=== PATIENT | male | born 1930 | race Caucasian/White ===

== ENCOUNTER 2018-01-08 18:03 | Inpatient (IN) | payer OTHER, MEDICARE ==
--- NOTE | 2018-01-08 18:33 | ED GI/GU/ABDOMINAL COMPLAINT ---
History of Present Illness General Chief Complaint: Nausea, Vomiting, Diarrhea Stated Complaint: BIBA NO COMPLIANT, VISTING NURSE STATES +V Source: patient, old records, EMS Exam Limitations: dementia Vital Signs & Intake/Output Vital Signs & Intake/Output Vital Signs Date Time Temp Pulse Resp B/P B/P Pulse O2 O2 Flow FiO2 Mean Ox Delivery Rate 01/08 2340 100.0 97 20 115/60 91 Room Air 01/08 2223 96.9 82 18 112/56 95 Room Air 01/08 2029 98.0 86 18 127/60 95 Room Air 01/08 1838 Room Air Room Air 01/08 1809 98.3 102 18 126/58 93 Room Air ED Intake and Output 01/09 0000 01/08 1200 Intake Total 0 Output Total Balance 0 Intake, Oral 0 Allergies Coded Allergies: Sulfa (Sulfonamide Antibiotics) (URTICARIA 01/08/18) gabapentin (ABD PAIN 01/08/18) lorazepam (From ATIVAN) (AGITATION 01/08/18) ropinirole (From REQUIP) (EMESIS 01/08/18) tizanidine (DIZZINESS/EMESIS 01/08/18) Triage Nurses Notes Reviewed? yes Onset: Abrupt Duration: day(s): (2), better Timing: recent history Quality/Severity: moderate Severity Numbers: 5 Location: no pain Radiation: no radiation No Modifying Factors: none Associated Symptoms: denies HPI: 87-year-old male history of coronary artery disease dementia presents brought in by ambulance after he had nausea vomiting yesterday associated with a large bloody bowel movement today. On arrival patient is demented offers no complaints he denies bowel pain nausea. No chest pain shortness of breath area of old records reviewed there is no documented history of the patient taking any blood thinners. No modifying factors or associated symptoms According to the w-10 the patient appeared lethargic on arrival he is awake without any complaints (Dillon Escobedo) Past History Travel History Traveled to [place] past 21 day No Medical History Any Pertinent Medical History? see below for history Neurological: CVA, dementia Cardiovascular: hypertension, CAD Musculoskeletal: osteoarthritis, SPINAL STENOSIS Cancer(s): lung cancer Surgical History Surgical History: non-contributory Psychosocial History Tobacco Use: Never used Family History Hx Contributory? No (Dillon Escobedo) Review of Systems Review of Systems Constitutional: Reports: see HPI. Comments ros: unable to obtain secondary to dementia (Dillon Escobedo) Physical Exam Physical Exam General Appearance: well developed/nourished, awake Gastrointestinal: soft, non-tender Comments: Well-developed well-nourished person in no acute distress HEENT: Normal EENT exam; PERRL, EOMI, HEAD is atraumatic. moist mucous membranes. Neck: Supple, normal range of motion Back: Nontender, Full range of motion Cardiovascular: Regular rate and rhythms no murmur Respiratory: Chest nontender.There were no bony deformities, no asymmetry. No respiratory distress. Patient speaking in full complete sentences. Breath sounds clear to auscultation bilaterally: NO W/R/R Abdomen: Soft, nontender nondistended, no appreciable organomegaly. Normal bowel sounds. No rebound/guarding, Rectal: Dark brown stool heme positive Extremity: No edema, full range of motion of extremities Neuro: Alert oriented x3, motor sensory normal, There were no obvious focal neurologic abnormalities. Skin: No appreciable rash on exposed skin, skin is warm and dry. Psych: Mood and affect is normal, memory and judgment is normal. Core Measures ACS in differential dx? No Sepsis Present: No Sepsis Focused Exam Completed? No (Dillon Escobedo) Progress Differential Diagnosis: appendicitis, biliary colic, bowel obstruction, colon cancer, cholecystitis, diverticulitis, gastritis, hepatitis, hernia, ischemic bowel, inflamm bowel dis, perforated viscous, SBO Plan of Care: Orders Procedure Date/time Status Nothing by Mouth 01/09 B Active CBC WITHOUT DIFFERENTIAL 01/09 0600 Active BASIC ELECTROLYTES PLUS BUN&CR 01/09 0400 Active CULTURE,URINE 01/09 0234 Active LOWER RESPIRATORY CULTURE 01/09 0234 Active BLOOD CULTURE 01/09 0234 Active URINALYSIS 01/09 0234 Active Weight 01/09 0038 Complete Vital Signs 01/09 38 Active Teach/Educate 01/09 38 Active Pain Treatment and Response 01/09 38 Active Nutritional Intake, Monitor 01/09 38 Active Isolation 01/09 38 Active Intake & Output 01/09 38 Active Patient Care Conference 01/09 38 Active Activity/Ambulation 01/09 38 Active Restraint- Medical 01/09 UNK Active Code Status 01/09 2216 Active LACTIC ACID 01/09 2132 Complete Pathway - chart 01/09 2124 Active Patient Data 01/08 2114 Active Saline Lock 01/09 2044 Active Misc Message 01/09 2044 Active ED Holding Orders 01/09 2044 Active Admit to inpatient 01/09 2044 Active Vital Signs 01/09 2044 Active Code Status 01/09 2044 Complete Intake & Output 01/08 1908 Active MISTAKE 01/08 184 Complete Telemetry/Upper Shaper 01/08 183 Complete EKG 01/08 183 Active PROTHROMBIN TIME 01/08 183 Complete TYPE & SCREEN (NOT X-MATCH) 01/08 183 Complete TROPONIN LEVEL 01/08 183 Complete LIPASE 01/08 183 Complete LACTIC ACID 01/08 183 Complete COMPREHENSIVE METABOLIC PANEL 01/08 183 Complete CBC WITHOUT DIFFERENTIAL 01/08 183 Complete VTE Mechanical Prophylaxis 01/08 UNK Active Vital Signs 01/08 UNK Complete Current Medications Sig/Akila Start time Last Medication Dose Stop Time Status Admin Melatonin 5 MG AT BEDTIME 01/09 2200 AC 01/08 (Melatonin) 2341 Pantoprazole Sodium 40 MG BID 01/09 1000 AC (Protonix) Dextrose/Sodium 1,000 ML Q13H 01/08 2230 AC 01/08 Chloride 2343 (D5-Normal Saline) Laboratory Tests 01/08/18 2210: Lactic Acid 1.9 01/08/181844: Anion Gap 11, Estimated GFR 57 L, BUN/Creatinine Ratio 40.8 H, Glucose 128 H, Lactic Acid 2.4 H, Calcium 8.6, Total Bilirubin 0.6, AST 14 L, ALT 23, Alkaline Phosphatase 67, Troponin I < 0.01, Total Protein 5.7 L, Albumin 3.1 L , Globulin 2.6, Albumin/Globulin Ratio 1.2, Lipase 131, PT 12.7 H, INR 1.16, CBC w Diff NO MAN DIFF REQ, RBC 2.61 L, MCV 96.8 H, MCH 31.5 H, MCHC 32.6 L, RDW 16.3 H, MPV 6.6 L, Gran % 72.0, Lymphocytes % 21.0, Monocytes % 6.1, Eosinophils % 0.7, Basophils % 0.2, Absolute Granulocytes 9.1 H, Absolute Lymphocytes 2.6, Absolute Monocytes 0.8 H, Absolute Eosinophils 0.1, Absolute Basophils 0 Microbiology 01/09 234 URINE ROUT: Urine Culture - ORD 01/09 234 LOWER RESP: Respiratory Culture - ORD 01/09 234 LOWER RESP: Gram Stain - ORD 01/09 234 BLOOD: Blood Culture - ORD 01/09 234 BLOOD: Blood Culture - ORD Labs ordered old records reviewed IV fluids ordered case discussed with Dr. Bueno agrees with plan call placed to gi cased/w dr sy willadmit-patient had no episode of vomiting here in the department. Diagnostic Imaging: Viewed by Me: CT Scan. Discussed w/RAD: CT Scan. Radiology Impression: PATIENT: ABDIAS GUAJARDO PRESENT AGE: 87 PATIENT ACCOUNT NO: [id number] : [birth year] LOCATION: [facility] ORDERING PHYSICIAN: Dillon MCKEON SERVICE DATE: 01/08/18 EXAM TYPE: CAT - CT ABD & PELVIS W/O IV CONTRAS EXAMINATION: CT ABD PELVIS W/O IV CONTRAS CLINICAL INFORMATION: Presumptive Dx: RO COLITIS, OBSTRUCTION
Signs Symptoms: NVD
COMPARISON: None TECHNIQUE: Multidetector volumetric imaging was performed from the superior aspect of the liver through the pubic symphysis Study done without contrast. DLP: 645 mGy-cm FINDINGS: LOWER THORAX: Consolidation/ atelectasis LEFT lower lobe with air bronchogram, an area involved is about 8 x 6 cm. No pleural effusion. Right lung bases are clear. HEPATOBILIARY: No focal hepatic lesions. No biliary ductal dilatation. GALLBLADDER: Gallbladder unremarkable. SPLEEN: Spleen is normal in size. PANCREAS: No focal mass or ductal dilatation. STOMACH AND GASTROINTESTINAL TRACT: Stomach is grossly unremarkable. There is no bowel distention or thickening. No CT evidence of appendicitis. ADRENALS: No adrenal nodules. KIDNEYS/URETERS: There are bilateral multiple renal cysts the largest protruding from the upper pole RIGHT kidney measure up to 5.6 x 5 cm, 4.2 x 3.9 cm, 3 x 2.5 cm, lower pole 3.2 x 3 cm and 1.9 x 1.5 cm. Several cysts on the LEFT side the largest is 6.7 x 6.3 cm, 4.8 x 4.3 cm, 1.9 x 1.9 cm and 4 x 3.4 cm. URINARY BLADDER: Unopacified, distended. PELVIC VISCERA: Rectum and perirectal fat are clear. There are anastomosis line. PERITONEUM: No free air or fluid. LYMPH NODES: No lymphadenopathy. VASCULAR: There are heavy vascular calcifications. No aneurysm found. BONES, ABDOMINAL WALL AND SOFT TISSUES: Age-related degenerative changes of the spine and hip joints symphysis pubis. Levoscoliosis. Left inguinal hernia containing fat only. IMPRESSION: 1. No CT evidence of acute intra-abdominal process. 2. Bilateral renal cysts, heavy vascular calcification of the aorta without aneurysm, advanced degenerative disease of the spine, anastomosis sigmoid-rectal junction, nonobstructive bowel gas pattern. 3. Left inguinal hernia containing fat only. 4. Large atelectasis consolidation LEFT lower lobe. DICTATED BY: Estela Altamirano MD DATE/TIME DICTATED:01/08/181953 TROUBLE LOCATER:TAHMINA DATE/TIME TRANSCRIBED:01/08/181953 CONFIDENTIAL, DO NOT COPY WITHOUT APPROPRIATE AUTHORIZATION. <Electronically signed in Other Vendor System> SIGNED BY: Estela Altamirano MD 01/08/182010 Initial ED EKG: normal intervals, normal p-waves, normal QRS complex, normal sinus rhythm (Dillon Escobedo) Departure Departure Time of Disposition: 2023 Disposition: STILL A PATIENT Condition: Stable Clinical Impression Primary Impression: GI bleed Secondary Impressions: Lactic acidosis Referrals: Vivian Gonzalez MD (PCP/Family) Departure Forms: Customer Survey General Discharge Information Admission Note Spoke With: Saran Sy MD Documentation of Exam: Documentation of any treatments & extenuating circumstances including Concerns Regarding Discharge (functional status, medication knowledge or non-compliance, living conditions, etc.) that warrant an admission rather than observation: GI CONSULT, TREND LABS-H/HPREMATURE DISCHARGE WOULD BE MEDICALLY HARMFUL, SERIAL ABD EXAMS (Dillon Escobedo) PA/GRINDER SET UP OPERATOR JIG Co-Sign Statement Statement: ED Attending supervision documentation- [x] I saw and evaluated the patient. I have also reviewed all the pertinent lab results and diagnostic results. I agree with the findings and the plan of care as documented in the PA's/GRINDER SET UP OPERATOR JIG's documentation. 01/08/18, 20:44... pt with slow gi bleed... stable vitals... safe for gen med. [] I have reviewed the ED Record and agree with the PA's/GRINDER SET UP OPERATOR JIG's documentation. [] Additions or exceptions (if any) to the PAs/GRINDER SET UP OPERATOR JIG's note and plan are summarized below: [] (Myles ESCAMILLA,Sagar Arnold)
[2018-01-08 19:04] LABS: ABSOLUTE BASOPHIL COUNT 0 /CUMM (0.0-0.2); ABSOLUTE EOSINOPHIL COUNT 0.1 /CUMM (0.0-0.7); ABSOLUTE GRANULOCYTE CT 9.1 /CUMM (1.4-6.5); ABSOLUTE LYMPH COUNT 2.6 /CUMM (1.2-3.4); ABSOLUTE MONOCYTE COUNT 0.8 /CUMM (0.10-0.60); BASOPHIL % 0.2 % (0.0-2.0); EOSINOPHIL % 0.7 % (0-5); HEMATOCRIT 25.3 % (42-52); MEAN CORPUSCULAR HGB 31.5 PG (27.0-31.0); MEAN CORPUSCULAR HGB CONC 32.6 G/DL (33.0-37.0); MEAN CORPUSCULAR VOLUME 96.8 FL (80.0-94.0); MEAN PLATELET VOLUME 6.6 FL (7.4-10.4); PLATELET COUNT 308 /CUMM (130-400); RBC DISTRIBUTION WIDTH 16.3 % (11.5-14.5); RED BLOOD CELL CT 2.61 /CUMM (4.70-6.10); WHITE BLOOD CELL COUNT 12.6 /CUMM (4.8-10.8)
[2018-01-08 19:12] LABS: PT 12.7 SEC (9.4-12.5)
--- NOTE | 2018-01-08 20:11 | CT SCAN REPORT ---
EXAMINATION: CT ABD PELVIS W/O IV CONTRAS CLINICAL INFORMATION: Presumptive Dx: RO COLITIS, OBSTRUCTION
Signs Symptoms: NVD
COMPARISON: None TECHNIQUE: Multidetector volumetric imaging was performed from the superior aspect of the liver through the pubic symphysis Study done without contrast. DLP: 645 mGy-cm FINDINGS: LOWER THORAX: Consolidation/atelectasis LEFT lower lobe with air bronchogram, an area involved is about 8 x 6 cm. No pleural effusion. Right lung bases are clear. HEPATOBILIARY: No focal hepatic lesions. No biliary ductal dilatation. GALLBLADDER: Gallbladder unremarkable. SPLEEN: Spleen is normal in size. PANCREAS: No focal mass or ductal dilatation. STOMACH AND GASTROINTESTINAL TRACT: Stomach is grossly unremarkable. There is no bowel distention or thickening. No CT evidence of appendicitis. ADRENALS: No adrenal nodules. KIDNEYS/URETERS: There are bilateral multiple renal cysts the largest protruding from the upper pole RIGHT kidney measure up to 5.6 x 5 cm, 4.2 x 3.9 cm, 3 x 2.5 cm, lower pole 3.2 x 3 cm and 1.9 x 1.5 cm. Several cysts on the LEFT side the largest is 6.7 x 6.3 cm, 4.8 x 4.3 cm, 1.9 x 1.9 cm and 4 x 3.4 cm. URINARY BLADDER: Unopacified, distended. PELVIC VISCERA: Rectum and perirectal fat are clear. There are anastomosis line. PERITONEUM: No free air or fluid. LYMPH NODES: No lymphadenopathy. VASCULAR: There are heavy vascular calcifications. No aneurysm found. BONES, ABDOMINAL WALL AND SOFT TISSUES: Age-related degenerative changes of the spine and hip joints symphysis pubis. Levoscoliosis. Left inguinal hernia containing fat only. IMPRESSION: 1. No CT evidence of acute intra-abdominal process. 2. Bilateral renal cysts, heavy vascular calcification of the aorta without aneurysm, advanced degenerative disease of the spine, anastomosis sigmoid-rectal junction, nonobstructive bowel gas pattern. 3. Left inguinal hernia containing fat only. 4. Large atelectasis consolidation LEFT lower lobe.
--- NOTE | 2018-01-08 21:17 | History & Physical ---
Scooby Mittal MD 01/08/182115: General Information and HPI MD Statement: I have seen and personally examined ABDIAS GOLDEN and documented this H&P. The patient is a 87 year old M who presented with a patient stated chief complaint of [melena/guaiac positive stool]. Source of Information: patient, family, old records Exam Limitations: dementia History of Present Illness: Patient is an 87-year-old male with a PMH significant for CAD, vascular dementia , CKD, HTN, colon cancer status post resection approximately 30 years ago, lung cancer not currently being treated, who presents to the [facility] ED from [facility] for nausea, vomiting, melanotic stool. Due to dementia patient was unable to provide history, information was obtained from [facility] nursing staff and patient's who is SUZETTE. Per the nursing staff at [facility] the patient was in his usual state of health the morning of presentation, in the afternoon he began to complain of abdominal discomfort, nausea and vomited once. The nurse was not aware of the contents of the emesis. Patient also had 2-3 episodes of soft stool and 1 episode of large volume dark stool with dark red blood, guaiac positive. Patient was brought into the ED by EMS. While in the ED patient had another episode of dark brown stool which was also guaiac- positive. Patient is a poor historian secondary to dementia and offers no complaints at the time examination and review of systems is negative for abdominal pain, nausea, chest pain, shortness of breath, fever, chills. Past History Travel History Traveled to [place] past 21 day No Medical History Neurological: CVA, dementia Cardiovascular: CAD, hypertension Gastrointestinal: internal and external hemorrhoids Musculoskeletal: osteoarthritis, SPINAL STENOSIS Cancer(s): colon/rectal cancer, lung cancer Surgical History Surgical History: colonic resection Past Family/Social History Family History Relations & Conditions if any Relation not specified for: *No pertinent family history Psychosocial History Where do you live? [facility] Primary Language: Macanese Smoking Status: Former Smoker ETOH Use: denies use Illicit Drug Use: denies illicit drug use Living Will? yes Review of Systems Review of Systems Constitutional: Denies: chills, fever, malaise. EENTM: Reports: no symptoms. Cardiovascular: Denies: chest pain, palpitations. Respiratory: Denies: cough, short of breath. GI: Denies: abdominal pain, nausea. Genitourinary: Reports: no symptoms. Musculoskeletal: Reports: no symptoms. Skin: Reports: no symptoms. Exam & Diagnostic Data Last 24 Hrs of Vital Signs/I&O Vital Signs Date Time Temp Pulse Resp B/P B/P Pulse O2 O2 Flow FiO2 Mean Ox Delivery Rate 01/080 100.0 97 20 115/60 91 Room Air 01/08 2223 96.9 82 18 112/56 95 Room Air 01/08 2029 98.0 86 18 127/60 95 Room Air 01/08 1838 Room Air Room Air 01/08 1809 98.3 102 18 126/58 93 Room Air Intake & Output 01/09 0800 01/09 0000 01/08 1600 Intake Total 0 Output Total Balance 0 Intake, Oral 0 Physical Exam General Appearance Alert, Cooperative, No Acute Distress Skin Temp/Moisture Exam: Warm/Dry Sepsis Skin Exam (color): Normal for Ethnicity HEENT Atraumatic, PERRLA, EOMI, Mucous Membr. moist/pink Cardiovascular Regular Rate, Normal S1, Normal S2 Lungs diffuse rhonchi Abdomen Normal Bowel Sounds, Soft, No Tenderness Neurological Normal Speech, Strength at 5/5 X4 Ext, Sensation Intact, Cranial Nerves 3-12 NL Extremities No Clubbing, No Cyanosis, No Edema Last 24 Hrs of Labs/Yang: Laboratory Tests 01/08/18 2210: Lactic Acid 1.9 01/08/18 1845: Anion Gap 11, Estimated GFR 57 L, BUN/Creatinine Ratio 40.8 H, Glucose 128 H, Lactic Acid 2.4 H, Calcium 8.6, Total Bilirubin 0.6, AST 14 L, ALT 23, Alkaline Phosphatase 67, Troponin I < 0.01, Total Protein 5.7 L, Albumin 3.1 L , Globulin 2.6, Albumin/Globulin Ratio 1.2, Lipase 131, PT 12.7 H, INR 1.16, CBC w Diff NO MAN DIFF REQ, RBC 2.61 L, MCV 96.8 H, MCH 31.5 H, MCHC 32.6 L, RDW 16.3 H, MPV 6.6 L, Gran % 72.0, Lymphocytes % 21.0, Monocytes % 6.1, Eosinophils % 0.7, Basophils % 0.2, Absolute Granulocytes 9.1 H, Absolute Lymphocytes 2.6, Absolute Monocytes 0.8 H, Absolute Eosinophils 0.1, Absolute Basophils 0 Diagnostic Data Other Results CT abd/pelvis LOWER THORAX: Consolidation/atelectasis LEFT lower lobe with air bronchogram, an area involved is about 8 x 6 cm. No pleural effusion. Right lung bases are clear. HEPATOBILIARY: No focal hepatic lesions. No biliary ductal dilatation. GALLBLADDER: Gallbladder unremarkable. SPLEEN: Spleen is normal in size. PANCREAS: No focal mass or ductal dilatation. STOMACH AND GASTROINTESTINAL TRACT: Stomach is grossly unremarkable. There is no bowel distention or thickening. No CT evidence of appendicitis. ADRENALS: No adrenal nodules. KIDNEYS/URETERS: There are bilateral multiple renal cysts the largest protruding from the upper pole RIGHT kidney measure up to 5.6 x 5 cm, 4.2 x 3.9 cm, 3 x 2.5 cm, lower pole 3.2 x 3 cm and 1.9 x 1.5 cm. Several cysts on the LEFT side the largest is 6.7 x 6.3 cm, 4.8 x 4.3 cm, 1.9 x 1.9 cm and 4 x 3.4 cm. URINARY BLADDER: Unopacified, distended. PELVIC VISCERA: Rectum and perirectal fat are clear. There are anastomosis line. PERITONEUM: No free air or fluid. LYMPH NODES: No lymphadenopathy. VASCULAR: There are heavy vascular calcifications. No aneurysm found. BONES, ABDOMINAL WALL AND SOFT TISSUES: Age-related degenerative changes of the spine and hip joints symphysis pubis. Levoscoliosis. Left inguinal hernia containing fat only. IMPRESSION: 1. No CT evidence of acute intra-abdominal process. 2. Bilateral renal cysts, heavy vascular calcification of the aorta without aneurysm, advanced degenerative disease of the spine, anastomosis sigmoid-rectal junction, nonobstructive bowel gas pattern. 3. Left inguinal hernia containing fat only. 4. Large atelectasis consolidation LEFT lower lobe. Assessment/Plan Assessment: Patient is an 87-year-old male with a PMH significant for CAD, vascular dementia , CKD, HTN, colon cancer status post resection approximately 30 years ago, lung cancer not currently being treated, who presents to the [facility] ED from [facility] for nausea, vomiting, melanotic stool. He had episode of guaiac- positive stool at [facility], and in the ED.\ Vital signs on admission: T 98.3, P102, RR 18, BP 126/58, pulse ox 93% on room air Labs: WBC 12.6, H/H8.2/25.3 (down from 10.6/39.5 on 12/27), platelet 308, BUN 49, creatinine 1.2, glucose 128, lactic acid 2.4 (decreased to 1.9 after IV fluid rehydration), PT 12.7, INR 1.16 Problem list #GI bleed #Chronic medical problems including history of coronary artery disease, CK-MB, colon cancer status post resection, hemorrhoids internal and external HTN Plan -Admit to general medicine floor -CBC every 8 hours for first 24 hours, transfuse to a goal hemoglobin of 8 given history of CAD -GI consult placed with the answering service of Dr. Bryant -2 large-bore IVs at all times -IV PPI -Nothing by mouth for now - maintenance fluids D5 normal saline at 75 mL per hour - (SUZETTE Golden [phone] ) is home bound, requests to be updated on the patients conditionshe is agreeable to escalation of care as needed including transfer to ICU, central line, pressors Diet: Nothing by mouth DVT prophylaxis: Alps, no pharmacological prophylaxis at this time secondary to GI bleed CODE STATUS: DNR/DNI As Ranked By This Provider Problem List: 1. GI bleed Core Measures/Misc (06/19) Acute Coronary Syndrome ACS Diagnosis: No Congestive Heart Failure Congestive Heart Failure Diagnosis No Cerebrovascular Accident CVA/TIA Diagnosis: No VTE (View Protocol) VTE Risk Factors Age>40 No Mechanical VTE Prophylaxis d/t N/A MechProphylax Ordered No VTE Pharm Prophylaxis d/t Bleeding (Active) Sepsis (View protocol) Sepsis Present: No Kat Avery 01/08/18 2207: General Information and HPI Allergies/Medications Allergies: Coded Allergies: Sulfa (Sulfonamide Antibiotics) (URTICARIA 01/08/18) gabapentin (ABD PAIN 01/08/18) lorazepam (From ATIVAN) (AGITATION 01/08/18) ropinirole (From REQUIP) (EMESIS 01/08/18) tizanidine (DIZZINESS/EMESIS 01/08/18) Resident Review Statement Resident Statement: examined this patient, discussed with international banker, reviewed EMR data (avail) Other Findings: 87-year-old gentleman from [facility] past medical history significant for vascular dementia, lung cancer diagnosed couple of years ago (untreated), colon cancer s/p resection, coronary artery disease, hypertension, chronic kidney disease, brought in by ambulance for nausea vomiting and one episode of large bowel bloody bowel movement. Patient is unable to provide history and collateral history was obtained from staff at [facility] as well as his who is his POA. Sent to [facility] for evaluation of 1 episode of large volume dark stool with dark red blood assoicated with abdominal discomfort, nausea and one episode of vomitting. Vitals temperature 98.0, heart rate 102--> 86, blood pressure 127/60, 94% percent on room air Examination patient was only oriented to person, RS bilateral rhonchi, abdomen soft nontender bowel sounds with midline surgical scar noted in lower abdomen, no pedal edema noted. Noted to be guaiac positive in ED. Labs significant for WBC 12.6 with no bandemia, hemoglobin 8.2, hematocrit 25.3 (down from 10.6/39.5 on 12/27) , platelet 308, sodium 142, potassium 4.6, BUN 49, creatinine 1.2, chloride 103, bicarbonate 27, PT 12.7, INR 1.16, glucose 128, lactic acid 2.4, normal LFTs troponin 0.01. Denies abdominal pain, nausea, chest pain, shortness of breath, fever, chills. CT abdomen pelvis significant for consolidation side at least ceases in left lower lobe with air bronchogram, multiple bilateral renal cysts Left inguinal hernia vascular calcification of aorta Problem list: GI bleed Coronary artery disease Hypertension CKD history of lung cancer colon cancer s/p resection leukocytosis-reactive vs underly infection (?pnuemonia) Plan: Admit to general medicine floor, vitals per protocol Recheck CBC every 8 hour, serial abdominal exam GI consult in the morning, will inform GI of any hemodynamically unstable or active bleeding IV PPI he spiked a fever of 100, will panculture and keep off antibiotics for now Keep nothing by mouth D5 normal saline at 75cc DVT prophylaxis Alps secondary to GI bleeding Goals of care: DNR/DNI, spoke to his who is his POA and she is okay with ICU transfer and central line and vasopressures if needed. Saran Oneill MD 01/09/18 0108: Attending MD Review Statement Attending Statement Attending MD Statement: examined this patient, discuss w/resident/PA/COAL SHOVELER, agreed w/resident/PA/COAL SHOVELER, reviewed EMR data (avail) Attending Assessment/Plan: Mr. Golden is 87-year-old male who comes from [facility] has a past medical history of vascular dementia, hypertension, coronary artery disease, comes in with complaints of nausea vomiting and bloody bowel movement. Most of the information is obtained by the house staff speaking to the staff at the [facility]. Currently patient denies any specific symptoms of abdominal pain nausea vomiting. Patient is unsure as to why he came in to the hospital. On examination blood pressure is 127/60 heart rate was initially tachycardic however came down to 80s, afebrile, saturating well on room air. Assessment 1. GI Bleed - likely Upper with normal coagulation parameters and platelets 2. Elevated BUN:Cr ratio 3. Lactic acidosis 4. Hypertension, CKD, CAD 5. Incidental finding of large atelectasis consolidation of LEFT lower lobe Plan Admit to Gen Med Trend CBC every 6-8 hrs. Serial abdominal exams NPO, IVF, IV Protonix 40 mg BID Maintain 2 large bore IV cannulas - Type and screen with cross match sent Gastroenterology consulted Monitor for any respiratory symptoms Patient is DNR and DNI ALPS for DVT prophylaxis
[2018-01-08 23:40] VITALS: BP 115/60
[2018-01-09 05:54] VITALS: BP 100/50
[2018-01-09 06:57] VITALS: BP 110/54
--- NOTE | 2018-01-09 07:50 | PN- Housestaff ---
See Addendum Subjective Follow-up For: upper vs Lower Gastrointestinal bleeding ? Non-occlusive mesenteric ischemia H/O colon cancer status post resection History of CAD, vascular dementia, hypertension History of colon cancer status post resection Complaints: no complaints Subjective: Patient was comfortably sitting in the bed. He did not have any acute episodes off vomiting overnight. She did not complain of any abdominal pain. No episodes of bright red blood per rectum overnight. No acute chest pain or shortness of breath. Review of Systems Constitutional: Denies: chills, fever. EENTM: Denies: visual changes. Cardiovascular: Denies: chest pain, palpitations. Respiratory: Denies: cough, short of breath. Gastrointestinal: Denies: abdominal pain, nausea, vomiting. Genitourinary: Denies: dysuria. Objective Last 24 Hrs of Vital Signs/I&O Vital Signs Date Time Temp Pulse Resp B/P B/P Pulse O2 O2 Flow FiO2 Mean Ox Delivery Rate 01/09 0657 98.6 86 20 110/54 94 Room Air 01/09 0554 98.0 88 20 100/50 91 Room Air 01/08 2340 100.0 97 20 115/60 91 Room Air 01/08 2223 96.9 82 18 112/56 95 Room Air 01/08 2029 98.0 86 18 127/60 95 Room Air 01/08 1838 Room Air Room Air 01/08 1809 98.3 102 18 126/58 93 Room Air Intake & Output 01/09 1600 01/09 0800 01/09 0000 Intake Total 720 0 Output Total 650 Balance 70 0 Intake, IV 600 Intake, Oral 120 0 Output, Urine 650 Physical Exam General Appearance: Alert, Oriented X3, Cooperative, No Acute Distress Skin Temp/Moisture Exam: Warm/Dry HEENT: PERRLA Neck: No JVD Cardiovascular: Regular Rate, Normal S1, Normal S2 Lungs: Clear to Auscultation Abdomen: Normal Bowel Sounds, Soft, No Tenderness Neurological: Normal Speech, Normal Tone, Sensation Intact Extremities: No Edema Vascular: Normal Pulses Current Medications: Current Medications Sig/Akila Start time Last Medication Dose Route Stop Time Status Admin Dextrose/Sodium 1,000 ML Q13H 01/08 2230 AC 01/08 Chloride IV 2343 Melatonin 5 MG AT BEDTIME 01/09 2200 AC 01/08 PO 2341 Melatonin 5 MG .STK-MED ONE 01/08 2333 DC PO 01/08 2334 Pantoprazole Sodium 40 MG BID 01/09 1000 AC IV Pantoprazole Sodium 0 .STK-MED ONE 01/08 2152 DC IV Pantoprazole Sodium 40 MG DAILY 01/09 2124 DC 01/08 IV 2153 Ramelteon 8 MG ONCE ONE 01/09 0245 DC 01/09 PO 01/09 0246 0300 Sodium Chloride 1,000 ML BOLUS ONE 01/08 1845 DC 01/08 IV 01/08 1944 1920 Last 24 Hrs of Lab/Yang Results Last 24 Hrs of Labs/Mics: Laboratory Tests 01/09/18 0620: CBC w Diff Pending, WBC Pending, RBC Pending, Hgb Pending, Hct Pending, MCV Pending, MCH Pending, MCHC Pending, RDW Pending, Plt Count Pending, MPV Pending 01/09/18 0408: Anion Gap 8, Estimated GFR 52 L, BUN/Creatinine Ratio 33.8 H 01/09/18 0245: Urinalysis LIGHT H, Urine Color YEL, Urine Clarity CLDY H, Urine pH 6.0, Ur Specific [place] 1.020, Urine Protein NEG, Urine Ketones NEG, Urine Nitrite NEG, Urine Bilirubin NEG, Urine Urobilinogen 0.2, Ur Leukocyte Esterase MOD H, Ur Microscopic SEDIMENT EXAMINED, Urine RBC 1-3, Urine WBC 15-25 H, Ur Epithelial Cells RARE, Urine Bacteria MANY H, Urine Mucus RARE, Urine Hemoglobin NEG, Urine Glucose NEG 01/08/18 2210: Lactic Acid 1.9 01/08/18 1845: Anion Gap 11, Estimated GFR 57 L, BUN/Creatinine Ratio 40.8 H, Glucose 128 H, Lactic Acid 2.4 H, Calcium 8.6, Total Bilirubin 0.6, AST 14 L, ALT 23, Alkaline Phosphatase 67, Troponin I < 0.01, Total Protein 5.7 L, Albumin 3.1 L , Globulin 2.6, Albumin/Globulin Ratio 1.2, Lipase 131, PT 12.7 H, INR 1.16, CBC w Diff NO MAN DIFF REQ, RBC 2.61 L, MCV 96.8 H, MCH 31.5 H, MCHC 32.6 L, RDW 16.3 H, MPV 6.6 L, Gran % 72.0, Lymphocytes % 21.0, Monocytes % 6.1, Eosinophils % 0.7, Basophils % 0.2, Absolute Granulocytes 9.1 H, Absolute Lymphocytes 2.6, Absolute Monocytes 0.8 H, Absolute Eosinophils 0.1, Absolute Basophils 0 Microbiology 01/10 408 BLOOD: Blood Culture - RECD 01/10 408 BLOOD: Blood Culture - RECD 01/09 245 URINE ROUT: Urine Culture - RECD 01/09 234 LOWER RESP: Respiratory Culture - COLB 01/09 234 LOWER RESP: Gram Stain - COLB Lines/Diet/Fluids Fluids/Infusions: D5 normal saline at the rate of 75 mL per hour Lines: peripheral lines Restraints: Jessika Assessment/Plan Assessment: 87-year-old male with a PMH significant for CAD, vascular dementia, CKD, HTN, colon cancer status post resection approximately 30 years ago, lung cancer not currently being treated, who presents to the [facility] ED from [facility] for nausea, vomiting, melanotic stool. Vital signs on admission: T 98.3, heart rate 102, RR 18, BP 126/58, pulse ox 93% on room air Labs: WBC 12.6, H/H8.2/25.3 (down from 10.6/39.5 on 12/27), platelet 308, BUN 49, creatinine 1.2, glucose 128, lactic acid 2.4 (decreased to 1.9 after IV fluid rehydration), PT 12.7, INR 1.16 CT scan of abdomen and pelvis were done without IV contrast that showed, no acute intra-abdominal process, bilaterally no cysts, left inguinal hernia, and large atelectasis or consolidation of the left lower lobe. Patient is currently being admitted on general medicine so for the management of following problems Acute blood loss anemia Upper vs Lower Gastrointestinal bleeding Possible Non-occlusive mesenteric ischemia Type A lactic acidosis Acute delirium History of CAD, vascular dementia, hypertension History of colon cancer status post resection Cause of gastrointestinal bleeding is not entirely clear at the moment. Given patient's history of vascular dementia, hypertension and CAD along with subacute presentation, this points more towards nonocclusive mesenteric ischemia leading to melanotic stools or it could be recurrene of Colon ca as he has H/O colon cancer status post resection. This could be secondary to dehydration. Patient had evidence of hemoconcentration on admission. Patient had leukocytosis without any left shift or bands. Patient should ideally had a CAT scan with IV contrast but a CAT scan without contrast was done in ED. Patient received 1 L of normal saline and is currently on maintenance fluids. GI was consulted and their evaluation is pending. Lactic acidosis is resolved. It was type a lactic acidosis likely secondary to poor perfusion in the setting of multiple risk factors for vascular disease. Patient has history of vascular dementia. Overnight there was a change in mental status and patient was attempting to get out of the bed. Kyle Restrains were ordered. We will discontinue the Kyle restrains as patient's mental status has improved. For chronic medical conditions will continue patient's medication. Patient is on Alps for DVT prophylaxis in the setting of recent bleed Patient is DNR/DNI Patient is currently nothing by mouth pending GI evaluation Problem List: 1. GI bleed 2. Lactic acidosis Pain Ratin Pain Location: NA Pain Goal: Pain 4 or less Pain Plan: Continue current pain medications Tomorrow's Labs & Rationales: CBC BEP to follow blood counts and renal function DVT/Prophylaxis: mechanical Consulting Request: Consulting Specialty: Gastroenterology
[2018-01-09 09:03] LABS: ABSOLUTE BASOPHIL COUNT 0 /CUMM (0.0-0.2); ABSOLUTE EOSINOPHIL COUNT 0.3 /CUMM (0.0-0.7); ABSOLUTE GRANULOCYTE CT 6.7 /CUMM (1.4-6.5); ABSOLUTE LYMPH COUNT 2.3 /CUMM (1.2-3.4); ABSOLUTE MONOCYTE COUNT 0.6 /CUMM (0.10-0.60); BASOPHIL % 0.3 % (0.0-2.0); EOSINOPHIL % 2.8 % (0-5); GRANULOCYTE % 67.6 % (42.2-75.2); MEAN CORPUSCULAR HGB 32.2 PG (27.0-31.0); MEAN CORPUSCULAR HGB CONC 33.3 G/DL (33.0-37.0); MEAN CORPUSCULAR VOLUME 96.4 FL (80.0-94.0); PLATELET COUNT 250 /CUMM (130-400); RBC DISTRIBUTION WIDTH 16.2 % (11.5-14.5); RED BLOOD CELL CT 2.07 /CUMM (4.70-6.10)
--- NOTE | 2018-01-09 19:28 | Cons- Gastroenterology ---
General Information and HPI Consulting Request Date of Consult: 01/09/18 Requested By: Patric Arredondo MD Reason for Consult: GI bleed Source of Information: patient, old records Exam Limitations: dementia History of Present Illness: Patient presents with reported hematemesis in the senior care facility, followed by red blood per rectum yesterday (versus melena). The emergency room note states that rectal exam revealed brown Hemoccult positive stool. Currently the patient denies nausea, abdominal pain (history is unreliable). There is no history of previous upper GI bleed/peptic ulcer disease, nor need for EGD. He has a history of colon cancer, details unavailable. Allergies/Medications Allergies: Coded Allergies: Sulfa (Sulfonamide Antibiotics) (URTICARIA 01/08/18) gabapentin (ABD PAIN 01/08/18) lorazepam (From ATIVAN) (AGITATION 01/08/18) ropinirole (From REQUIP) (EMESIS 01/08/18) tizanidine (DIZZINESS/EMESIS 01/08/18) Current Medications: Current Medications Sig/Akila Start time Last Medication Dose Route Stop Time Status Admin Dextrose/Sodium 1,000 ML Q13H 01/08 2230 DC 01/08 Chloride IV 2343 Melatonin 5 MG AT BEDTIME 01/09 2200 AC 01/08 PO 2341 Melatonin 5 MG .STK-MED ONE 01/08 2333 DC PO 01/08 2334 Pantoprazole Sodium 40 MG BID 01/09 1000 AC 01/09 IV 1113 Pantoprazole Sodium 0 .STK-MED ONE 01/08 2152 DC IV Pantoprazole Sodium 40 MG DAILY 01/08 2124 DC 01/08 IV 2153 Ramelteon 8 MG ONCE ONE 01/09 0245 DC 01/09 PO 01/09 0246 0300 Sodium Chloride 1,000 ML BOLUS ONE 01/08 1845 DC 01/08 IV 01/08 1944 1920 Past History Travel History Traveled to [place] past 21 day No Medical History Neurological: CVA, dementia Cardiovascular: CAD, hypertension Gastrointestinal: internal and external hemorrhoids Musculoskeletal: osteoarthritis, SPINAL STENOSIS Cancer(s): colon/rectal cancer, lung cancer Surgical History Surgical History: colonic resection Family History Relations & Conditions If Any: Relation not specified for: *No pertinent family history Psychosocial History Where Do You Live? Extended Care Facility Primary Language: Syriac Smoking Status: Former Smoker ETOH Use: denies use Illicit Drug Use: denies illicit drug use Living Will? yes Review of Systems Review of Systems: Unreliable/unobtainable. Exam & Diagnostic Data Vital Signs and I&O Vital Signs Date Time Temp Pulse Resp B/P B/P Pulse O2 O2 Flow FiO2 Mean Ox Delivery Rate 01/09 1102 Room Air 01/09 0657 98.6 86 20 110/54 94 Room Air 01/09 0554 98.0 88 20 100/50 91 Room Air 01/08 2340 100.0 97 20 115/60 91 Room Air 01/08 2223 96.9 82 18 112/56 95 Room Air 01/08 2029 98.0 86 18 127/60 95 Room Air Intake & Output 01/09 1600 01/09 0400 01/08 1600 01/08 0400 01/07 1600 01/07 0400 Intake Total 1440 0 Output Total 1200 Balance 240 0 Intake, IV 1300 Intake, Oral 140 0 Output, Urine 1200 Physical Exam: Alert, conversant, no apparent distress. Skin without lesion/jaundice/stigmata chronic liver disease. No adenopathy. Sclera anicteric. Oropharynx normal. Neck supple without thyromegaly, masses, adenopathy. Heart regular rhythm. Lungs clear bilaterally. Abdomen soft, nondistended, normal bowel sounds; no tenderness, mass, palpable organomegaly. Extremities without edema, and with palpable distal pulses. Results Pertinent Lab Results: Laboratory Tests 01/09 01/09 0620 0408 Chemistry Sodium (137 - 145 mmol/L) 141 Potassium (3.5 - 5.1 mmol/L) 4.0 Chloride (98 - 107 mmol/L) 107 Carbon Dioxide (22 - 30 mmol/L) 26 Anion Gap (5 - 16) 8 BUN (9 - 20 mg/dL) 44 H Creatinine (0.7 - 1.2 mg/dL) 1.3 H Estimated GFR (>60 ml/min) 52 L BUN/Creatinine Ratio (7 - 25 %) 33.8 H Hematology CBC w Diff NO MAN DIFF REQ WBC (4.8 - 10.8 /CUMM) 10.0 RBC (4.70 - 6.10 /CUMM) 2.07 L Hgb (14.0 - 18.0 G/DL) 6.7 *L Hct (42 - 52 %) 20.0 L MCV (80.0 - 94.0 FL) 96.4 H MCH (27.0 - 31.0 PG) 32.2 H MCHC (33.0 - 37.0 G/DL) 33.3 RDW (11.5 - 14.5 %) 16.2 H Plt Count (130 - 400 /CUMM) 250 MPV (7.4 - 10.4 FL) 7.0 L Gran % (42.2 - 75.2 %) 67.6 Lymphocytes % (20.5 - 51.1 %) 23.5 Monocytes % (1.7 - 9.3 %) 5.8 Eosinophils % (0 - 5 %) 2.8 Basophils % (0.0 - 2.0 %) 0.3 Absolute Granulocytes (1.4 - 6.5 /CUMM) 6.7 H Absolute Lymphocytes (1.2 - 3.4 /CUMM) 2.3 Absolute Monocytes (0.10 - 0.60 /CUMM) 0.6 Absolute Eosinophils (0.0 - 0.7 /CUMM) 0.3 Absolute Basophils (0.0 - 0.2 /CUMM) 0 01/09 01/08 0245 2210 Chemistry Lactic Acid (0.7 - 2.1 mmol/L) 1.9 Urines Urinalysis LIGHT H Urine Color (YEL,AMB,STR) YEL Urine Clarity (CLEAR) CLDY H Urine pH (5.0 - 8.0) 6.0 Ur Specific Whitman (1.001 - 1.035) 1.020 Urine Protein (NEG,<30 MG/DL) NEG Urine Ketones (NEG) NEG Urine Nitrite (NEG) NEG Urine Bilirubin (NEG) NEG Urine Urobilinogen (0.1 - 1.0 EU/dl) 0.2 Ur Leukocyte Esterase (NEG) MOD H Ur Microscopic SEDIMENT EXAMINED Urine RBC (0 - 5 /HPF) 1-3 Urine WBC (0 - 2 /HPF) 15-25 H Ur Epithelial Cells (NONE,FEW) RARE Urine Bacteria (NEG/NONE) MANY H Urine Mucus (FEW,NONE) RARE Urine Hemoglobin (NEG) NEG Urine Glucose (N MG/DL) NEG 01/08 1845 Chemistry Sodium (137 - 145 mmol/L) 142 Potassium (3.5 - 5.1 mmol/L) 4.6 Chloride (98 - 107 mmol/L) 103 Carbon Dioxide (22 - 30 mmol/L) 27 Anion Gap (5 - 16) 11 BUN (9 - 20 mg/dL) 49 H Creatinine (0.7 - 1.2 mg/dL) 1.2 Estimated GFR (>60 ml/min) 57 L BUN/Creatinine Ratio (7 - 25 %) 40.8 H Glucose (65 - 99 mg/dL) 128 H Lactic Acid (0.7 - 2.1 mmol/L) 2.4 H Calcium (8.4 - 10.2 mg/dL) 8.6 Total Bilirubin (0.2 - 1.3 mg/dL) 0.6 AST (17 - 59 U/L) 14 L ALT (21 - 72 U/L) 23 Alkaline Phosphatase (< 127 U/L) 67 Troponin I (<0.11 ng/ml) < 0.01 Total Protein (6.3 - 8.2 g/dL) 5.7 L Albumin (3.5 - 5.0 g/dL) 3.1 L Globulin (1.9 - 4.2 gm/dL) 2.6 Albumin/Globulin Ratio (1.1 - 2.2 %) 1.2 Lipase (23 - 300 U/L) 131 Coagulation PT (9.4 - 12.5 SEC) 12.7 H INR (0.90 - 1.17) 1.16 Hematology CBC w Diff NO MAN DIFF REQ WBC (4.8 - 10.8 /CUMM) 12.6 H RBC (4.70 - 6.10 /CUMM) 2.61 L Hgb (14.0 - 18.0 G/DL) 8.2 L Hct (42 - 52 %) 25.3 L MCV (80.0 - 94.0 FL) 96.8 H MCH (27.0 - 31.0 PG) 31.5 H MCHC (33.0 - 37.0 G/DL) 32.6 L RDW (11.5 - 14.5 %) 16.3 H Plt Count (130 - 400 /CUMM) 308 MPV (7.4 - 10.4 FL) 6.6 L Gran % (42.2 - 75.2 %) 72.0 Lymphocytes % (20.5 - 51.1 %) 21.0 Monocytes % (1.7 - 9.3 %) 6.1 Eosinophils % (0 - 5 %) 0.7 Basophils % (0.0 - 2.0 %) 0.2 Absolute Granulocytes (1.4 - 6.5 /CUMM) 9.1 H Absolute Lymphocytes (1.2 - 3.4 /CUMM) 2.6 Absolute Monocytes (0.10 - 0.60 /CUMM) 0.8 H Absolute Eosinophils (0.0 - 0.7 /CUMM) 0.1 Absolute Basophils (0.0 - 0.2 /CUMM) 0 Imaging/Other Studies: CT scan without contrast: 1. No CT evidence of acute intra-abdominal process. 2. Bilateral renal cysts, heavy vascular calcification of the aorta without aneurysm, advanced degenerative disease of the spine, anastomosis sigmoid-rectal junction, nonobstructive bowel gas pattern. 3. Left inguinal hernia containing fat only. 4. Large atelectasis consolidation LEFT lower lobe. Assessment/Plan Assessment/Recommendations: Hematemesis/melena. No reported history of previous GI bleeding. Initial drop in hematocrit from baseline, with continued drop during hospitalization. Hemodynamic stability. No active bleeding today. Recommendations * Clear liquid diet. Nothing by mouth after midnight. * Follow-up CBC after transfusion 1 unit packed red blood cells. Maintain hemoglobin greater than 8, given cardiac comorbidities. * IV PPI twice a day * Plan on EGD tomorrow; will discuss with patient's . Consult Acknowledgment - Thank you for your consult request.
[2018-01-09 22:39] VITALS: BP 152/56
[2018-01-10 00:55] LABS: ABSOLUTE BASOPHIL COUNT 0 /CUMM (0.0-0.2); ABSOLUTE EOSINOPHIL COUNT 0.2 /CUMM (0.0-0.7); ABSOLUTE GRANULOCYTE CT 5.7 /CUMM (1.4-6.5); ABSOLUTE LYMPH COUNT 1.6 /CUMM (1.2-3.4); ABSOLUTE MONOCYTE COUNT 0.6 /CUMM (0.10-0.60); BASOPHIL % 0.2 % (0.0-2.0); EOSINOPHIL % 2.9 % (0-5); GRANULOCYTE % 70.4 % (42.2-75.2); HEMATOCRIT 21.4 % (42-52); MEAN CORPUSCULAR HGB CONC 33.8 G/DL (33.0-37.0); MEAN CORPUSCULAR VOLUME 94.9 FL (80.0-94.0); MEAN PLATELET VOLUME 6.1 FL (7.4-10.4); PLATELET COUNT 236 /CUMM (130-400); RBC DISTRIBUTION WIDTH 15.9 % (11.5-14.5); RED BLOOD CELL CT 2.26 /CUMM (4.70-6.10); WHITE BLOOD CELL COUNT 8.1 /CUMM (4.8-10.8)
[2018-01-10 06:57] VITALS: BP 144/72
[2018-01-10 08:30] LABS: ABSOLUTE BASOPHIL COUNT 0 /CUMM (0.0-0.2); ABSOLUTE EOSINOPHIL COUNT 0.2 /CUMM (0.0-0.7); ABSOLUTE GRANULOCYTE CT 5.5 /CUMM (1.4-6.5); ABSOLUTE LYMPH COUNT 1.3 /CUMM (1.2-3.4); ABSOLUTE MONOCYTE COUNT 0.6 /CUMM (0.10-0.60); BASOPHIL % 0.2 % (0.0-2.0); EOSINOPHIL % 2.8 % (0-5); GRANULOCYTE % 71.7 % (42.2-75.2); HEMATOCRIT 23.1 % (42-52); MEAN CORPUSCULAR HGB 32.2 PG (27.0-31.0); MEAN CORPUSCULAR HGB CONC 34.1 G/DL (33.0-37.0); MEAN CORPUSCULAR VOLUME 94.4 FL (80.0-94.0); MEAN PLATELET VOLUME 6.2 FL (7.4-10.4); PLATELET COUNT 226 /CUMM (130-400); RED BLOOD CELL CT 2.45 /CUMM (4.70-6.10); WHITE BLOOD CELL COUNT 7.6 /CUMM (4.8-10.8)
--- NOTE | 2018-01-10 08:55 | PN- Housestaff ---
Regis Yeager MD,Lauro 01/10/18 0855: Subjective Follow-up For: upper vs Lower Gastrointestinal bleeding ? Non-occlusive mesenteric ischemia H/O colon cancer status post resection History of CAD, vascular dementia, hypertension History of colon cancer status post resection Complaints: no complaints Subjective: Patient was comfortably lying in the bed. He is pleasantly confused. He did not have any acute episodes of vomiting overnight. He did not complain of any abdominal pain. No episodes of bright red blood per rectum overnight. Review of Systems Constitutional: Denies: chills, fever. EENTM: Denies: visual changes. Cardiovascular: Denies: chest pain, palpitations. Respiratory: Denies: cough, short of breath. Gastrointestinal: Denies: abdominal pain, nausea, vomiting. Genitourinary: Denies: dysuria. Objective Last 24 Hrs of Vital Signs/I&O Vital Signs Date Time Temp Pulse Resp B/P B/P Pulse O2 O2 Flow FiO2 Mean Ox Delivery Rate 01/10 657 98.5 91 20 144/72 91 Room Air 01/09 223 97.2 93 18 152/56 96 Room Air 01/09 1102 Room Air Intake & Output 01/10 1600 01/10 0800 01/10 0000 Intake Total 350 180 Output Total 550 Balance -200 180 Intake, IV 350 Intake, Oral 180 Number 0 Bowel Movements Output, Urine 550 Physical Exam General Appearance: Alert, Cooperative, No Acute Distress, pleasantly confused HEENT: Atraumatic Neck: No JVD Cardiovascular: Regular Rate, Normal S1, Normal S2 Lungs: Clear to Auscultation Abdomen: Normal Bowel Sounds, Soft, No Tenderness Neurological: Normal Speech, Normal Tone, Sensation Intact Extremities: No Edema Vascular: Normal Pulses Current Medications: Current Medications Sig/Akila Start time Last Medication Dose Route Stop Time Status Admin Dextrose/Sodium 1,000 ML Q13H 01/08 223 DC 01/08 Chloride IV 234 Melatonin 5 MG AT BEDTIME 01/09 2200 AC 01/08 PO 234 Pantoprazole Sodium 40 MG BID 01/09 1000 AC 01/09 IV 2050 Last 24 Hrs of Lab/Yang Results Last 24 Hrs of Labs/Mics: Laboratory Tests 01/10/18 0743: Anion Gap 9, Estimated GFR 57 L, BUN/Creatinine Ratio 24.2, CBC w Diff NO MAN DIFF REQ, RBC 2.45 L, MCV 94.4 H, MCH 32.2 H, MCHC 34.1, RDW 16.0 H, MPV 6.2 L, Gran % 71.7, Lymphocytes % 17.5 L, Monocytes % 7.8, Eosinophils % 2.8, Basophils % 0.2, Absolute Granulocytes 5.5, Absolute Lymphocytes 1.3, Absolute Monocytes 0.6, Absolute Eosinophils 0.2, Absolute Basophils 0 01/10/18 0024: CBC w Diff NO MAN DIFF REQ, RBC 2.26 L, MCV 94.9 H, MCH 32.0 H, MCHC 33.8, RDW 15.9 H, MPV 6.1 L, Gran % 70.4, Lymphocytes % 19.4 L, Monocytes % 7.1, Eosinophils % 2.9, Basophils % 0.2, Absolute Granulocytes 5.7, Absolute Lymphocytes 1.6, Absolute Monocytes 0.6, Absolute Eosinophils 0.2, Absolute Basophils 0 Lines/Diet/Fluids Lines: peripheral lines Restraints: none Assessment/Plan Assessment: 87-year-old male with a PMH significant for CAD, vascular dementia, CKD, HTN, colon cancer status post resection approximately 30 years ago, lung cancer not currently being treated, who presents to the [facility] ED from [facility] for nausea, vomiting, melanotic stool. Vital signs on admission: T 98.3, heart rate 102, RR 18, BP 126/58, pulse ox 93% on room air Labs: WBC 12.6, H/H8.2/25.3 (down from 10.6/39.5 on 12/27), platelet 308, BUN 49, creatinine 1.2, glucose 128, lactic acid 2.4 (decreased to 1.9 after IV fluid rehydration), PT 12.7, INR 1.16 CT scan of abdomen and pelvis were done without IV contrast that showed, no acute intra-abdominal process, bilaterally no cysts, left inguinal hernia, and large atelectasis or consolidation of the left lower lobe. Patient is currently being admitted on general medicine so for the management of following problems Acute blood loss anemia Upper Gastrointestinal bleeding Type A lactic acidosis Acute delirium History of CAD, vascular dementia, hypertension History of colon cancer status post resection Cause of gastrointestinal bleeding was not entirely clear on admission. Given patient's history of vascular dementia, hypertension and CAD along with subacute presentation, our differentials were upper GI bleeding versus nonocclusive mesenteric ischemia leading to melanotic stools or recurrene of Colon ca as he has H/O colon cancer status post resection. This could be secondary to dehydration. Patient had evidence of hemoconcentration on admission. Patient had leukocytosis without any left shift or bands. Patient should ideally had a CAT scan with IV contrast but a CAT scan without contrast was done in ED. Patient received 1 L of normal saline and was on maintenance fluids. GI was consulted and she did undergo endoscopy today. Patient is currently hemodynamically stable. No tachycardia. No increase in BUN. We did GI planning to do esophagogastroduodenoscopy to rule out upper GI bleeding. Lactic acidosis is resolved. It was type a lactic acidosis likely secondary to poor perfusion in the setting of multiple risk factors for vascular disease. Patient has history of vascular dementia. Overnight there was a change in mental status and patient was attempting to get out of the bed. Jackson Restrains were ordered. We will discontinue the Jessika restrains as patient's mental status has improved. For chronic medical conditions will continue patient's medication. Patient is on Alps for DVT prophylaxis in the setting of recent bleed Patient is DNR/DNI Patient is currently nothing by mouth pending GI evaluation Problem List: 1. Lactic acidosis 2. GI bleed Pain Ratin Pain Location: NA Pain Goal: Pain 4 or less Pain Plan: Continue current medications Tomorrow's Labs & Rationales: CBC for blood counts BEP monitor renal function DVT/Prophylaxis: mechanical Consulting Request: Consulting Specialty: Gastroenterology Patric Arredondo MD 01/10/18 1003: Attending Review Statement Attending Statement Attending MD Statement: examined this patient, discuss w/resident/PA/BOTTLING EQUIPMENT SALES REPRESENTATIVE, agreed w/resident/PA/BOTTLING EQUIPMENT SALES REPRESENTATIVE, reviewed EMR data (avail), discussed with nursing, discussed with case mgmt, amended to note Attending Assessment/Plan: The patient was seen and discussed with house staff, nursing and case management. Received 2nd unit of PRBC last pm and H/H 7.9/23.1 at present. To have EGD this morning with Dr. Bryant. Continuing PPI IV at present. Pending results of EGD consider change to PO. EGD showing GE junction ulcer/tear (healing). OK to start po food per Dr. Bryant. Will transfuse 3rd unit of PRBC and follow-up H/H in morning. The patient's was notified of these results.
--- NOTE | 2018-01-10 13:57 | Proc Note Endoscopy ---
Endoscopy Procedure Procedure Date: 01/10/18 Procedure Type: EGD w/biopsy Child Daycare Worker: Ap Bryant M.D. ASA Classification: III Indications: GI bleed: Hematemesis, melena, blood loss anemia Instrument: diagnostic gastroscope Meds Received: ESTER Patient's Tolerance: good Complications: none Extent Reached: second part of duodenum Procedure: The patient's gave verbal/telephone witnessed informed consent. The patient was medicated. Lidocaine pharyngeal spray was administered. Pulse oximetry, blood pressure and cardiac monitoring were performed continuously throughout the procedure. The Olympus high-definition gastroscope was inserted into the mouth and advanced to the duodenum. Retroflexion was performed within the stomach to examine the cardia. Careful examination was performed. Findings: The esophagus had normal caliber and contour. There were no varices. The mucosa was intact throughout. The GE junction was at 40 cm at which site was a ring. At the junction on one wall was an area of exudate, and, best seen on retroflexed view, a healing ulcer versus broad-based tear. 2 biopsies were obtained of this area. The stomach had normal distention and active peristalsis. The mucosa and folds were normal throughout. The pyloric channel was normal. The duodenal bulb was normal aside from mildly edematous folds at the apex. The mucosa and folds of the duodenal sweep were normal. The papilla appeared to be enlarged and irregular, and biopsies were obtained. Impression: * GE junction tear versus healing ulcer * Schatzki ring * Enlarged duodenal papilla Recommendations: * Await pathology * Advance diet to heart healthy * Transfuse 1 unit packed red blood cells to achieve hemoglobin of greater than 8 * Follow-up CBC tomorrow * Defer colonoscopy CC: Carlos ESCAMILLA,Vivian
[2018-01-10 14:42] VITALS: BP 150/70
--- NOTE | 2018-01-10 18:12 | Discharge Summary ---
Visit Information Visit Dates Admission Date: 01/08/18 Discharge Date: 01/12/18 Hospital Course Course Attending Physician: Patric Arredondo MD Primary Care Physician: Vivian Gonzalez MD Consulting Request: Consulting Specialty: Gastroenterology Hospital Course: 87-year-old male with a PMH significant for CAD, vascular dementia, CKD, HTN, colon cancer status post resection approximately 30 years ago, lung cancer not currently being treated, who presented to [facility] from [facility] for nausea, vomiting, melanotic stool. Vital signs on admission: T 98.3, heart rate 102, RR 18, BP 126/58, pulse ox 93% on room air Labs: WBC 12.6, H/H8.2/25.3 (down from 10.6/39.5 on 12/27), platelet 308, BUN 49, creatinine 1.2, glucose 128, lactic acid 2.4 (decreased to 1.9 after IV fluid rehydration), PT 12.7, INR 1.16. CT scan of abdomen and pelvis were done without IV contrast that showed, no acute intra-abdominal process, bilaterally no cysts, left inguinal hernia, and large atelectasis or consolidation of the left lower lobe. Patient was managed on general medicine so for the management of following problems Acute on chronic anemia secondary to upper GI bleeding/history of colon cancer status post resection Cause of gastrointestinal bleeding was not entirely clear on admission. Given patient's history of vascular dementia, hypertension and CAD along with subacute presentation, our differentials were upper GI bleeding versus nonocclusive mesenteric ischemia leading to melanotic stools or recurrene of Colon ca as he has H/O colon cancer status post resection. GI consult was obtained. Patient remained hemodynamically stable and was given IV fluids. With rapid drop in hemoglobin, patient was given 2 units of blood. EGD was performed that showed GE junction tear versus healing ulcer, Schatzki ring and enlarged duodenal papilla. Patient was given another unit of blood post procedure. His H&H subsequently remained stable. Patient will have colonoscopy as an outpatient to complete the workup. He is to follow up with his GI doctor at the [place]. Type A lactic acidosis Patient had type A lactic acidosis likely secondary to poor perfusion in the setting of multiple risk factors for vascular disease, that resolved quickly with IV hydration. History of vascular dementia/Acute delirium Patient has history of vascular dementia. During hospitalization there was a change in mental status and patient was attempting to get out of the bed, at which point adriel was ordered. Patient's mentation subsequently improved, and he was taken off restraints. Patient was on Alps for DVT prophylaxis in the setting of recent bleed Patient was DNR/DNI Patient was on heart healthy diet Allergies: Coded Allergies: Sulfa (Sulfonamide Antibiotics) (URTICARIA 01/08/18) gabapentin (ABD PAIN 01/08/18) lorazepam (From ATIVAN) (AGITATION 01/08/18) ropinirole (From REQUIP) (EMESIS 01/08/18) tizanidine (DIZZINESS/EMESIS 01/08/18) Significant Procedures: EGD w/biopsy Endoscopy Procedure Procedure Date: 01/10/18 Procedure Type: EGD w/biopsy Press Box Custodian: Ap Bryant M.D. ASA Classification: III Indications: GI bleed: Hematemesis, melena, blood loss anemia Instrument: diagnostic gastroscope Meds Received: MAC Patient's Tolerance: good Complications: none Extent Reached: second part of duodenum Procedure: The patient's gave verbal/telephone witnessed informed consent. The patient was medicated. Lidocaine pharyngeal spray was administered. Pulse oximetry, blood pressure and cardiac monitoring were performed continuously throughout the procedure. The Olympus high-definition gastroscope was inserted into the mouth and advanced to the duodenum. Retroflexion was performed within the stomach to examine the cardia. Careful examination was performed. Findings: The esophagus had normal caliber and contour. There were no varices. The mucosa was intact throughout. The GE junction was at 40 cm at which site was a ring. At the junction on one wall was an area of exudate, and, best seen on retroflexed view, a healing ulcer versus broad-based tear. 2 biopsies were obtained of this area. The stomach had normal distention and active peristalsis. The mucosa and folds were normal throughout. The pyloric channel was normal. The duodenal bulb was normal aside from mildly edematous folds at the apex. The mucosa and folds of the duodenal sweep were normal. The papilla appeared to be enlarged and irregular, and biopsies were obtained. Impression: * GE junction tear versus healing ulcer * Schatzki ring * Enlarged duodenal papilla SERVICE DATE: 01/08/18-1831 EXAM TYPE: CAT - CT ABD & PELVIS W/O IV CONTRAS FINDINGS: LOWER THORAX: Consolidation/atelectasis LEFT lower lobe with air bronchogram, an area involved is about 8 x 6 cm. No pleural effusion. Right lung bases are clear. HEPATOBILIARY: No focal hepatic lesions. No biliary ductal dilatation. GALLBLADDER: Gallbladder unremarkable. SPLEEN: Spleen is normal in size. PANCREAS: No focal mass or ductal dilatation. STOMACH AND GASTROINTESTINAL TRACT: Stomach is grossly unremarkable. There is no bowel distention or thickening. No CT evidence of appendicitis. ADRENALS: No adrenal nodules. KIDNEYS/URETERS: There are bilateral multiple renal cysts the largest protruding from the upper pole RIGHT kidney measure up to 5.6 x 5 cm, 4.2 x 3.9 cm, 3 x 2.5 cm, lower pole 3.2 x 3 cm and 1.9 x 1.5 cm. Several cysts on the LEFT side the largest is 6.7 x 6.3 cm, 4.8 x 4.3 cm, 1.9 x 1.9 cm and 4 x 3.4 cm. URINARY BLADDER: Unopacified, distended. PELVIC VISCERA: Rectum and perirectal fat are clear. There are anastomosis line. PERITONEUM: No free air or fluid. LYMPH NODES: No lymphadenopathy. VASCULAR: There are heavy vascular calcifications. No aneurysm found. BONES, ABDOMINAL WALL AND SOFT TISSUES: Age-related degenerative changes of the spine and hip joints symphysis pubis. Levoscoliosis. Left inguinal hernia containing fat only. IMPRESSION: 1. No CT evidence of acute intra-abdominal process. 2. Bilateral renal cysts, heavy vascular calcification of the aorta without aneurysm, advanced degenerative disease of the spine, anastomosis sigmoid-rectal junction, nonobstructive bowel gas pattern. 3. Left inguinal hernia containing fat only. 4. Large atelectasis consolidation LEFT lower lobe. Disposition Summary Disposition Principal Diagnosis: Acute on chronic anemia secondary to upper GI bleeding Type A lactic acidosis Acute delirium Additional Diagnosis: History of CAD, vascular dementia, hypertension History of colon cancer status post resection Discharge Disposition: SNF Discharge Instructions General Discharge Information Code Status: Do Not Resucitate/Intubat Patient's Diet: Heart healthy diet Patient's Activity: As tolerated Follow-Up Instructions/Appts: Follow-up with PCP after discharge Follow-up with primary school principal after discharge Follow-up CBC in a week after discharge Medications at Discharge Discharge Medications: Stop taking the following medications: Aspirin (Aspirin*) 81 MG TAB.CHEW ORAL DAILY Continue taking these medications: Terazosin HCl (Terazosin HCl) 5 MG CAPSULE 1 Capsule ORAL Every night Metoprolol Succinate (Metoprolol Succinate) 50 MG TAB.ER.24H 1 Tablet ORAL DAILY Finasteride (Finasteride) 5 MG TABLET 1 Tablet ORAL DAILY Multivitamin (Daily Multiple Vitamin) 1 EACH TABLET 1 Tablet ORAL DAILY Start taking the following new medications: Pantoprazole Sodium (Protonix) 40 MG GRANPKT.DR 1 Tablet ORAL TWICE DAILY Qty = 120 No Refills Instructions: PLEASE TAKE FOR 2 MONTHS Copies To: Yoel ESCAMILLA,Guerline; Carlos ESCAMILLA,Vivian; Annette ESCAMILLA,Ap Peacock Attending MD Review Statement Documenting Attending: Patric Arredondo MD Other Findings: The patient was seen and discussed with house staff. Agree with plan of care as outlined. OK to send back to [facility] today (Eusebio Cao).
[2018-01-10 22:09] VITALS: BP 120/60
[2018-01-11 06:54] VITALS: BP 140/60
--- NOTE | 2018-01-11 07:23 | PN- Housestaff ---
PetraFatuma 01/11/18 0723: Subjective Follow-up For: upper vs Lower Gastrointestinal bleeding ? Non-occlusive mesenteric ischemia H/O colon cancer status post resection History of CAD, vascular dementia, hypertension History of colon cancer status post resection Complaints: no complaints Subjective: Patient seen and exmained at bedside. He ios sitting comfortably in the chair. Ofefrs no compliants. His diet was advanced yesterday. No reports of vomiting, bleeidng per rectum. Dneis CP, SOB. Recived PRBC yesterday, and blood work this AM, shows appropriate change in his H&H. He is pleasantly confused, baseline dementia, unchanged mentataion. Review of Systems Constitutional: Denies: chills, fever. EENTM: Denies: visual changes. Cardiovascular: Denies: chest pain, orthopena, peripheral edema. Respiratory: Denies: cough, hemoptysis, short of breath. Gastrointestinal: Denies: abdominal pain, nausea, vomiting. Genitourinary: Reports: no symptoms. Neurological/Psychological: Denies: headache, numbness, tingling, tremors. Objective Last 24 Hrs of Vital Signs/I&O Vital Signs Date Time Temp Pulse Resp B/P B/P Pulse O2 O2 Flow FiO2 Mean Ox Delivery Rate 01/11 0654 97.8 68 20 140/60 94 Room Air 01/10 2209 98.1 89 19 120/60 93 Room Air 01/10 1442 98.8 85 18 150/70 90 Room Air Intake & Output 01/11 0800 01/11 0000 01/10 1600 Intake Total 130 740 300 Output Total 350 300 Balance -220 740 0 Intake, IV 10 500 Intake, Oral 120 240 300 Output, Urine 350 300 Physical Exam General Appearance: Alert, Cooperative, No Acute Distress Skin Temp/Moisture Exam: Warm/Dry HEENT: Atraumatic, PERRLA, EOMI, Mucous Membr. moist/pink Neck: Supple, No JVD, No LAD Cardiovascular: Regular Rate, Normal S1, Normal S2, No Murmurs Lungs: Clear to Auscultation, Normal Air Movement Abdomen: Normal Bowel Sounds, Soft, No Tenderness Extremities: No Cyanosis, No Edema Current Medications: Current Medications Sig/Akila Start time Last Medication Dose Route Stop Time Status Admin Lidocaine 50 ML .STK-MED ONE 01/10 1410 [facility] 01/10 1411 Lidocaine 2 SARAH .STK-MED ONE 01/10 1410 [facility] 01/10 1411 Melatonin 5 MG AT BEDTIME 01/09 2200 AC 01/10 PO 2248 Pantoprazole Sodium 40 MG BID 01/09 1000 AC 01/10 IV 2248 Last 24 Hrs of Lab/Yang Results Last 24 Hrs of Labs/Mics: Laboratory Tests 01/10/18 0743: Anion Gap 9, Estimated GFR 57 L, BUN/Creatinine Ratio 24.2, CBC w Diff NO MAN DIFF REQ, RBC 2.45 L, MCV 94.4 H, MCH 32.2 H, MCHC 34.1, RDW 16.0 H, MPV 6.2 L, Gran % 71.7, Lymphocytes % 17.5 L, Monocytes % 7.8, Eosinophils % 2.8, Basophils % 0.2, Absolute Granulocytes 5.5, Absolute Lymphocytes 1.3, Absolute Monocytes 0.6, Absolute Eosinophils 0.2, Absolute Basophils 0 Assessment/Plan Assessment: 87-year-old male with a PMH significant for CAD, vascular dementia, CKD, HTN, colon cancer status post resection approximately 30 years ago, lung cancer not currently being treated, who presents to the [facility] ED from [facility] for nausea, vomiting, melanotic stool. Vital signs on admission: T 98.3, heart rate 102, RR 18, BP 126/58, pulse ox 93% on room air Labs: WBC 12.6, H/H8.2/25.3 (down from 10.6/39.5 on 12/27), platelet 308, BUN 49, creatinine 1.2, glucose 128, lactic acid 2.4 (decreased to 1.9 after IV fluid rehydration), PT 12.7, INR 1.16 CT scan of abdomen and pelvis were done without IV contrast that showed, no acute intra-abdominal process, bilaterally no cysts, left inguinal hernia, and large atelectasis or consolidation of the left lower lobe. Patient is currently being admitted on general medicine so for the management of following problems Acute blood loss anemia Upper Gastrointestinal bleeding Type A lactic acidosis Acute delirium History of CAD, vascular dementia, hypertension History of colon cancer status post resection Cause of gastrointestinal bleeding was not entirely clear on admission. Given patient's history of vascular dementia, hypertension and CAD along with subacute presentation, our differentials were upper GI bleeding versus nonocclusive mesenteric ischemia leading to melanotic stools or recurrene of Colon ca as he has H/O colon cancer status post resection. This could be secondary to dehydration. Patient had evidence of hemoconcentration on admission. Patient had leukocytosis without any left shift or bands. Patient should ideally had a CAT scan with IV contrast but a CAT scan without contrast was done in ED. Patient received 1 L of normal saline and was on maintenance fluids. GI was consulted and he underewent endoscopy yesterday. Patient is currently hemodynamically stable. No tachycardia. No increase in BUN. Endosocpy showed GE junction tear versus healing ulcer; Schatzki ring; enlarged duodenal papilla. His diet was advanced, adn he is tolerating it well. He also received transfusion with 1 PRBC. F/U CBC later today and tmrw, with anticipation of D/C patient tmrw. Lactic acidosis is resolved. It was type a lactic acidosis likely secondary to poor perfusion in the setting of multiple risk factors for vascular disease. Patient has history of vascular dementia. Currently stable. WIll D/C adriel. For chronic medical conditions will continue patient's medication. Patient is on Alps for DVT prophylaxis in the setting of recent bleed Patient is DNR/DNI Heart Halthy Problem List: 1. Lactic acidosis 2. GI bleed Pain Ratin Pain Location: n/a Pain Goal: Remain pain free Pain Plan: tylenol Tomorrow's Labs & Rationales: cbc - h&h Consulting Request: Consulting Specialty: Gastroenterology Discharge Plan Discharge Disposition: STR/NH Stable for Discharge? Yes Anticipated Discharge (Day): tomorrow If Discharged Today/In 24 Hrs: DC summary done, CMR done Patirc Arredondo MD 01/11/18 2212: Attending MD Review Statement Attending Statement Attending MD Statement: examined this patient, discuss w/resident/PA/ELECTROCARDIOGRAPHIC TECHNICIAN, agreed w/resident/PA/ELECTROCARDIOGRAPHIC TECHNICIAN, reviewed EMR data (avail), discussed with nursing, discussed with case mgmt, amended to note Attending Assessment/Plan: The patient was seen and discussed with house staff, nursing and case management. Tolerating diet. H/H increased post 3rd unit of PRBC. Will follow H/ H. If stable will transfer back to SNF tomorrow.
[2018-01-11 08:26] LABS: ABSOLUTE BASOPHIL COUNT 0 /CUMM (0.0-0.2); ABSOLUTE EOSINOPHIL COUNT 0.2 /CUMM (0.0-0.7); ABSOLUTE GRANULOCYTE CT 4.7 /CUMM (1.4-6.5); ABSOLUTE LYMPH COUNT 1.6 /CUMM (1.2-3.4); ABSOLUTE MONOCYTE COUNT 0.5 /CUMM (0.10-0.60); BASOPHIL % 0.2 % (0.0-2.0); GRANULOCYTE % 66.5 % (42.2-75.2); HEMATOCRIT 27.2 % (42-52); MEAN CORPUSCULAR HGB 31.9 PG (27.0-31.0); MEAN CORPUSCULAR HGB CONC 33.9 G/DL (33.0-37.0); MEAN PLATELET VOLUME 6.2 FL (7.4-10.4); PLATELET COUNT 262 /CUMM (130-400); RBC DISTRIBUTION WIDTH 16.6 % (11.5-14.5)
[2018-01-11 14:05] VITALS: BP 138/64
--- NOTE | 2018-01-11 15:58 | PN- Gastroenterology ---
Assessment/Plan GI Assessment/Recommendations: Upper GI bleed, blood loss anemia. The patient is stable, there are no signs of active bleeding, and his hematocrit has risen appropriately after transfusion. Histopathology from area of GE junction ulcer/tear, as well as papilla, is pending. He is tolerating a regular diet. Recommendations: * Await pathology * Continue heart healthy diet * Empiric PPI for 2 months * Maintain hemoglobin of greater than 8 * Outpatient GI follow-up. There is no plan for colonoscopy at this time. Thank you very much for allowing my participation in this patient's care. I will be glad to see him in my office in follow-up, within one month, unless he and his decided to pursue follow-up with [facility]enterology [place] the [place]. Please call or reconsult during this hospitalization as needed. Subjective Subjective: No nausea, vomiting, abdominal pain, blood per rectum, melena. Objective Vital Signs and I&Os Vital Signs Date Time Temp Pulse Resp B/P B/P Pulse O2 O2 Flow FiO2 Mean Ox Delivery Rate 01/11 1405 97.2 68 18 138/64 92 Room Air 01/11 0654 97.8 68 20 140/60 94 Room Air 01/10 2209 98.1 89 19 120/60 93 Room Air Intake & Output 01/11 1600 01/11 0400 01/10 1600 01/10 0400 01/09 1600 01/09 0400 Intake Total 130 740 359 712 5832 0 Output Total 597 371 0198 Balance -220 740 -200 180 240 0 Intake, IV 10 718 493 5277 Intake, Oral 120 240 300 180 140 0 Number 0 Bowel Movements Output, Urine 301 236 8132 Physical Exam: Abdomen soft, nondistended, nontender Current Medications: Current Medications Sig/Akila Start time Last Medication Dose Route Stop Time Status Admin Melatonin 5 MG AT BEDTIME 01/09 220 AC 01/10 PO 2248 Omeprazole 40 MG BID 01/11 1000 AC 01/11 PO 1138 Pantoprazole Sodium 40 MG BID 01/09 1000 DC 01/10 IV 2248 Results Pertinent Lab Results: Laboratory Tests 01/11 01/11 1525 0740 Chemistry Sodium (137 - 145 mmol/L) 142 Potassium (3.5 - 5.1 mmol/L) 3.8 Chloride (98 - 107 mmol/L) 108 H Carbon Dioxide (22 - 30 mmol/L) 25 Anion Gap (5 - 16) 9 BUN (9 - 20 mg/dL) 18 Creatinine (0.7 - 1.2 mg/dL) 1.1 Estimated GFR (>60 ml/min) > 60 BUN/Creatinine Ratio (7 - 25 %) 16.4 Hematology CBC w Diff Pending NO MAN DIFF REQ WBC (4.8 - 10.8 /CUMM) Pending 7.0 RBC (4.70 - 6.10 /CUMM) Pending 2.90 L Hgb (14.0 - 18.0 G/DL) Pending 9.2 L Hct (42 - 52 %) Pending 27.2 L MCV (80.0 - 94.0 FL) Pending 94.0 MCH (27.0 - 31.0 PG) Pending 31.9 H MCHC (33.0 - 37.0 G/DL) Pending 33.9 RDW (11.5 - 14.5 %) Pending 16.6 H Plt Count (130 - 400 /CUMM) Pending 262 MPV (7.4 - 10.4 FL) Pending 6.2 L Gran % (42.2 - 75.2 %) 66.5 Lymphocytes % (20.5 - 51.1 %) 22.9 Monocytes % (1.7 - 9.3 %) 7.4 Eosinophils % (0 - 5 %) 3.0 Basophils % (0.0 - 2.0 %) 0.2 Absolute Granulocytes (1.4 - 6.5 /CUMM) 4.7 Absolute Lymphocytes (1.2 - 3.4 /CUMM) 1.6 Absolute Monocytes (0.10 - 0.60 /CUMM) 0.5 Absolute Eosinophils (0.0 - 0.7 /CUMM) 0.2 Absolute Basophils (0.0 - 0.2 /CUMM) 0 01/10 01/10 0743 0024 Chemistry Sodium (137 - 145 mmol/L) 141 Potassium (3.5 - 5.1 mmol/L) 3.8 Chloride (98 - 107 mmol/L) 107 Carbon Dioxide (22 - 30 mmol/L) 25 Anion Gap (5 - 16) 9 BUN (9 - 20 mg/dL) 29 H Creatinine (0.7 - 1.2 mg/dL) 1.2 Estimated GFR (>60 ml/min) 57 L BUN/Creatinine Ratio (7 - 25 %) 24.2 Hematology CBC w Diff NO MAN DIFF REQ NO MAN DIFF REQ WBC (4.8 - 10.8 /CUMM) 7.6 8.1 RBC (4.70 - 6.10 /CUMM) 2.45 L 2.26 L Hgb (14.0 - 18.0 G/DL) 7.9 L 7.2 *L Hct (42 - 52 %) 23.1 L 21.4 L MCV (80.0 - 94.0 FL) 94.4 H 94.9 H MCH (27.0 - 31.0 PG) 32.2 H 32.0 H MCHC (33.0 - 37.0 G/DL) 34.1 33.8 RDW (11.5 - 14.5 %) 16.0 H 15.9 H Plt Count (130 - 400 /CUMM) 226 236 MPV (7.4 - 10.4 FL) 6.2 L 6.1 L Gran % (42.2 - 75.2 %) 71.7 70.4 Lymphocytes % (20.5 - 51.1 %) 17.5 L 19.4 L Monocytes % (1.7 - 9.3 %) 7.8 7.1 Eosinophils % (0 - 5 %) 2.8 2.9 Basophils % (0.0 - 2.0 %) 0.2 0.2 Absolute Granulocytes (1.4 - 6.5 /CUMM) 5.5 5.7 Absolute Lymphocytes (1.2 - 3.4 /CUMM) 1.3 1.6 Absolute Monocytes (0.10 - 0.60 /CUMM) 0.6 0.6 Absolute Eosinophils (0.0 - 0.7 /CUMM) 0.2 0.2 Absolute Basophils (0.0 - 0.2 /CUMM) 0 0 01/09 01/09 0620 0408 Chemistry Sodium (137 - 145 mmol/L) 141 Potassium (3.5 - 5.1 mmol/L) 4.0 Chloride (98 - 107 mmol/L) 107 Carbon Dioxide (22 - 30 mmol/L) 26 Anion Gap (5 - 16) 8 BUN (9 - 20 mg/dL) 44 H Creatinine (0.7 - 1.2 mg/dL) 1.3 H Estimated GFR (>60 ml/min) 52 L BUN/Creatinine Ratio (7 - 25 %) 33.8 H Hematology CBC w Diff NO MAN DIFF REQ WBC (4.8 - 10.8 /CUMM) 10.0 RBC (4.70 - 6.10 /CUMM) 2.07 L Hgb (14.0 - 18.0 G/DL) 6.7 *L Hct (42 - 52 %) 20.0 L MCV (80.0 - 94.0 FL) 96.4 H MCH (27.0 - 31.0 PG) 32.2 H MCHC (33.0 - 37.0 G/DL) 33.3 RDW (11.5 - 14.5 %) 16.2 H Plt Count (130 - 400 /CUMM) 250 MPV (7.4 - 10.4 FL) 7.0 L Gran % (42.2 - 75.2 %) 67.6 Lymphocytes % (20.5 - 51.1 %) 23.5 Monocytes % (1.7 - 9.3 %) 5.8 Eosinophils % (0 - 5 %) 2.8 Basophils % (0.0 - 2.0 %) 0.3 Absolute Granulocytes (1.4 - 6.5 /CUMM) 6.7 H Absolute Lymphocytes (1.2 - 3.4 /CUMM) 2.3 Absolute Monocytes (0.10 - 0.60 /CUMM) 0.6 Absolute Eosinophils (0.0 - 0.7 /CUMM) 0.3 Absolute Basophils (0.0 - 0.2 /CUMM) 0 01/09 04/08 0245 2210 Chemistry Lactic Acid (0.7 - 2.1 mmol/L) 1.9 Urines Urinalysis LIGHT H Urine Color (YEL,AMB,STR) YEL Urine Clarity (CLEAR) CLDY H Urine pH (5.0 - 8.0) 6.0 Ur Specific [place] (1.001 - 1.035) 1.020 Urine Protein (NEG,<30 MG/DL) NEG Urine Ketones (NEG) NEG Urine Nitrite (NEG) NEG Urine Bilirubin (NEG) NEG Urine Urobilinogen (0.1 - 1.0 EU/dl) 0.2 Ur Leukocyte Esterase (NEG) MOD H Ur Microscopic SEDIMENT EXAMINED Urine RBC (0 - 5 /HPF) 1-3 Urine WBC (0 - 2 /HPF) 15-25 H Ur Epithelial Cells (NONE,FEW) RARE Urine Bacteria (NEG/NONE) MANY H Urine Mucus (FEW,NONE) RARE Urine Hemoglobin (NEG) NEG Urine Glucose (N MG/DL) NEG 01/08 1845 Chemistry Sodium (137 - 145 mmol/L) 142 Potassium (3.5 - 5.1 mmol/L) 4.6 Chloride (98 - 107 mmol/L) 103 Carbon Dioxide (22 - 30 mmol/L) 27 Anion Gap (5 - 16) 11 BUN (9 - 20 mg/dL) 49 H Creatinine (0.7 - 1.2 mg/dL) 1.2 Estimated GFR (>60 ml/min) 57 L BUN/Creatinine Ratio (7 - 25 %) 40.8 H Glucose (65 - 99 mg/dL) 128 H Lactic Acid (0.7 - 2.1 mmol/L) 2.4 H Calcium (8.4 - 10.2 mg/dL) 8.6 Total Bilirubin (0.2 - 1.3 mg/dL) 0.6 AST (17 - 59 U/L) 14 L ALT (21 - 72 U/L) 23 Alkaline Phosphatase (< 127 U/L) 67 Troponin I (<0.11 ng/ml) < 0.01 Total Protein (6.3 - 8.2 g/dL) 5.7 L Albumin (3.5 - 5.0 g/dL) 3.1 L Globulin (1.9 - 4.2 gm/dL) 2.6 Albumin/Globulin Ratio (1.1 - 2.2 %) 1.2 Lipase (23 - 300 U/L) 131 Coagulation PT (9.4 - 12.5 SEC) 12.7 H INR (0.90 - 1.17) 1.16 Hematology CBC w Diff NO MAN DIFF REQ WBC (4.8 - 10.8 /CUMM) 12.6 H RBC (4.70 - 6.10 /CUMM) 2.61 L Hgb (14.0 - 18.0 G/DL) 8.2 L Hct (42 - 52 %) 25.3 L MCV (80.0 - 94.0 FL) 96.8 H MCH (27.0 - 31.0 PG) 31.5 H MCHC (33.0 - 37.0 G/DL) 32.6 L RDW (11.5 - 14.5 %) 16.3 H Plt Count (130 - 400 /CUMM) 308 MPV (7.4 - 10.4 FL) 6.6 L Gran % (42.2 - 75.2 %) 72.0 Lymphocytes % (20.5 - 51.1 %) 21.0 Monocytes % (1.7 - 9.3 %) 6.1 Eosinophils % (0 - 5 %) 0.7 Basophils % (0.0 - 2.0 %) 0.2 Absolute Granulocytes (1.4 - 6.5 /CUMM) 9.1 H Absolute Lymphocytes (1.2 - 3.4 /CUMM) 2.6 Absolute Monocytes (0.10 - 0.60 /CUMM) 0.8 H Absolute Eosinophils (0.0 - 0.7 /CUMM) 0.1 Absolute Basophils (0.0 - 0.2 /CUMM) 0
[2018-01-11 16:52] LABS: ABSOLUTE BASOPHIL COUNT 0 /CUMM (0.0-0.2); ABSOLUTE EOSINOPHIL COUNT 0.2 /CUMM (0.0-0.7); ABSOLUTE GRANULOCYTE CT 7.1 /CUMM (1.4-6.5); ABSOLUTE MONOCYTE COUNT 0.8 /CUMM (0.10-0.60); BASOPHIL % 0.2 % (0.0-2.0); EOSINOPHIL % 2.3 % (0-5); GRANULOCYTE % 70.6 % (42.2-75.2); HEMATOCRIT 27.9 % (42-52); MEAN CORPUSCULAR HGB 31.5 PG (27.0-31.0); MEAN CORPUSCULAR HGB CONC 33.7 G/DL (33.0-37.0); MEAN CORPUSCULAR VOLUME 93.5 FL (80.0-94.0); MEAN PLATELET VOLUME 6.8 FL (7.4-10.4); PLATELET COUNT 243 /CUMM (130-400); RBC DISTRIBUTION WIDTH 16.8 % (11.5-14.5); RED BLOOD CELL CT 2.98 /CUMM (4.70-6.10); WHITE BLOOD CELL COUNT 10.1 /CUMM (4.8-10.8)
[2018-01-11 22:36] VITALS: BP 136/70
[2018-01-12 06:28] VITALS: BP 142/76
--- NOTE | 2018-01-12 07:20 | PN- Housestaff ---
Fatuma Lambert 01/12/18 0720: Subjective Follow-up For: ABLA 2/2 GI bleed s/p tx with PRBC H/O colon cancer status post resection History of CAD, vascular dementia, hypertension History of colon cancer status post resection Complaints: no complaints Subjective: Patiebt seen and examined at bedside. He offers no complaints is having breqakfast when seen. His H&H is stable. Review of Systems Constitutional: Denies: chills, fever, weakness. EENTM: Denies: visual changes. Cardiovascular: Denies: chest pain, orthopena, palpitations. Respiratory: Denies: cough, orthopnea, short of breath. Gastrointestinal: Denies: abdominal pain, nausea, vomiting. Genitourinary: Reports: no symptoms. Neurological/Psychological: Denies: headache, numbness, tingling, tremors. Objective Last 24 Hrs of Vital Signs/I&O Vital Signs Date Time Temp Pulse Resp B/P B/P Pulse O2 O2 Flow FiO2 Mean Ox Delivery Rate 01/12 0628 97.9 92 20 142/76 93 Room Air 01/11 2236 98.0 96 20 136/70 92 Room Air 01/11 1405 97.2 68 18 138/64 92 Room Air Intake & Output 01/12 0800 01/12 0000 01/11 1600 Intake Total 250 130 750 Output Total 450 Balance -200 130 750 Intake, IV 10 10 Intake, Oral 240 120 750 Output, Urine 450 Physical Exam General Appearance: Alert, Cooperative, No Acute Distress, pleasantly confused Skin Temp/Moisture Exam: Warm/Dry HEENT: Atraumatic, PERRLA, EOMI, Mucous Membr. moist/pink Neck: Supple, No JVD, No LAD Cardiovascular: Regular Rate, Normal S1, Normal S2, No Murmurs Lungs: Clear to Auscultation, Normal Air Movement Abdomen: Normal Bowel Sounds, Soft, No Tenderness Neurological: Normal Speech, Strength at 5/5 X4 Ext, Normal Tone, Sensation Intact, Cranial Nerves 3-12 NL, Reflexes 2+ Extremities: No Edema Current Medications: Current Medications Sig/Akila Start time Last Medication Dose Route Stop Time Status Admin Bisacodyl 10 MG Q12P PRN 01/12 900 UNVr [place] Doxazosin Mesylate 2 MG DAILY 01/12 900 UNVr PO Finasteride 5 MG DAILY 01/12 900 UNVr PO Melatonin 5 MG AT BEDTIME 01/09 2200 AC 01/10 PO 2248 Metoprolol Succinate 50 MG DAILY 01/12 900 UNVr PO Omeprazole 40 MG BID 01/11 1000 AC 01/11 PO 1138 Polyethylene Glycol 17 GM DAILY 01/12 900 UNVr PO Senna 187 MG AT BEDTIME 01/12 2100 UNVr PO Last 24 Hrs of Lab/Yang Results Last 24 Hrs of Labs/Mics: Laboratory Tests 01/12/18 0804: Sodium Pending, Potassium Pending, Chloride Pending, Carbon Dioxide Pending, Anion Gap Pending, BUN Pending, Creatinine Pending, BUN/Creatinine Ratio Pending , CBC w Diff NO MAN DIFF REQ, RBC 2.99 L, MCV 93.3, MCH 31.3 H, MCHC 33.5, RDW 17.1 H, MPV 6.2 L, Gran % 69.0, Lymphocytes % 19.4 L, Monocytes % 8.2, Eosinophils % 3.2, Basophils % 0.2, Absolute Granulocytes 5.1, Absolute Lymphocytes 1.4, Absolute Monocytes 0.6, Absolute Eosinophils 0.2, Absolute Basophils 0 01/11/18 1525: CBC w Diff NO MAN DIFF REQ, RBC 2.98 L, MCV 93.5, MCH 31.5 H, MCHC 33.7, RDW 16.8 H, MPV 6.8 L, Gran % 70.6, Lymphocytes % 19.4 L, Monocytes % 7.5, Eosinophils % 2.3, Basophils % 0.2, Absolute Granulocytes 7.1 H, Absolute Lymphocytes 2.0, Absolute Monocytes 0.8 H, Absolute Eosinophils 0.2, Absolute Basophils 0 Assessment/Plan Assessment: 87-year-old male with a PMH significant for CAD, vascular dementia, CKD, HTN, colon cancer status post resection approximately 30 years ago, lung cancer not currently being treated, who presents to the [facility] ED from [facility] for nausea, vomiting, melanotic stool. Vital signs on admission: T 98.3, heart rate 102, RR 18, BP 126/58, pulse ox 93% on room air Labs: WBC 12.6, H/H8.2/25.3 (down from 10.6/39.5 on 12/27), platelet 308, BUN 49, creatinine 1.2, glucose 128, lactic acid 2.4 (decreased to 1.9 after IV fluid rehydration), PT 12.7, INR 1.16 CT scan of abdomen and pelvis were done without IV contrast that showed, no acute intra-abdominal process, bilaterally no cysts, left inguinal hernia, and large atelectasis or consolidation of the left lower lobe. Patient is currently being admitted on general medicine so for the management of following problems Acute blood loss anemia Upper Gastrointestinal bleeding Type A lactic acidosis Acute delirium History of CAD, vascular dementia, hypertension History of colon cancer status post resection Cause of gastrointestinal bleeding was not entirely clear on admission. Given patient's history of vascular dementia, hypertension and CAD along with subacute presentation, our differentials were upper GI bleeding versus nonocclusive mesenteric ischemia leading to melanotic stools or recurrene of Colon ca as he has H/O colon cancer status post resection. This could be secondary to dehydration. Patient had evidence of hemoconcentration on admission. Patient had leukocytosis without any left shift or bands. Patient should ideally had a CAT scan with IV contrast but a CAT scan without contrast was done in ED. Patient received 1 L of normal saline and was on maintenance fluids. GI was consulted and he underewent endoscopy yesterday. Patient is currently hemodynamically stable. No tachycardia. No increase in BUN. Endosocpy showed GE junction tear versus healing ulcer; Schatzki ring; enlarged duodenal papilla. His diet was advanced, adn he is tolerating it well. He also received transfusion with 1 PRBC. F/U CBC today is stable with anticipation of D/C patient today. Lactic acidosis is resolved. It was type a lactic acidosis likely secondary to poor perfusion in the setting of multiple risk factors for vascular disease. Patient has history of vascular dementia. Currently stable. WIll D/C adriel. For chronic medical conditions will continue patient's medication including Metoprolol, Finasteride and Terazosin. Patient is on Alps for DVT prophylaxis in the setting of recent bleed Patient is DNR/DNI Problem List: 1. GI bleed Pain Ratin Pain Location: n/a Pain Goal: Remain pain free Pain Plan: tylenol Tomorrow's Labs & Rationales: n/a Consulting Request: Consulting Specialty: Gastroenterology Discharge Plan Discharge Disposition: STR/NH Stable for Discharge? Yes Anticipated Discharge (Day): today If Discharged Today/In 24 Hrs: W-10/discharge paper done, DC summary done, CMR done Patric Arredodno MD 01/12/18 1153: Attending MD Review Statement Attending Statement Attending MD Statement: examined this patient, discuss w/resident/PA/ENGRAVER STEEL PLATE, agreed w/resident/PA/ENGRAVER STEEL PLATE, discussed with family, reviewed EMR data (avail), discussed with nursing, discussed with case mgmt, amended to note Attending Assessment/Plan: The patient was seen and discussed with house staff. H/H stable. Will discharge back to [facility] today (Eusebio Cao) on Protonix oral. Discussed with and will send information to Dr. Diallo at [facility].
--- NOTE | 2018-01-12 07:36 | Patient Discharge Instructions ---
Discharge Instructions General Discharge Information You were seen/treated for: - Acute on chronic blodd loss anemia 2/2 GI bleed You had these procedures: Endoscopy Special Instructions: Please follow upw ith your primary care physician in one week. Please follow up with your GI doctor in one week. Please have a repeat CBC in one week Please resume baby aspirin in a week. Diet Recommended Diet: Heart Healthy Activity Activity Self Limited: Yes Acute Coronary Syndrome Inclusion Criteria At DC or during hospital stay patient has or had the following: ACS DIAGNOSIS No Discharge Core Measures Meds if any: Prescribed or Continued at Discharge Meds if any: NOT Prescribed or Continued at Discharge Congestive Heart Failure Inclusion Criteria At DC or during hospital stay patient has or had the following: CHF DIAGNOSIS No Discharge Core Measures Meds if any: Prescribed or Continued at Discharge Meds if any: NOT Prescribed or Continued at Discharge Cerebrovascular accident Inclusion Criteria At DC or during hospital stay patient has or had the following: CVA/TIA Diagnosis No Discharge Core Measures Meds if any: Prescribed or Continued at Discharge Meds if any: NOT Prescribed or Continued at Discharge Venous thromboembolism Inclusion Criteria VTE Diagnosis No VTE Type NONE VTE Confirmed by (Test) NONE Discharge Core Measures - Per Current guidelines, there needs to be overlap - treatment for the first 5 days of Warfarin therapy. - If discharged on Warfarin prior to 5 days of - overlap therapy, the patient will need to be - assessed for post discharge needs including - *Post discharge parental anticoagulation - *Warfarin and/or parental anticoagulation education - *Follow up date to check INR post discharge At least 5 days overlap therapy as Inpatient No Meds if any: Prescribed or Continued at Discharge Note: Overlap Therapy is Warfarin and Anticoagulant Meds if any: NOT Prescribed or Continued at Discharge
[2018-01-12] MEDS ORDERED: OMEPRAZOLE20 M2 PO (07:39)
[2018-01-12 08:51] LABS: ABSOLUTE BASOPHIL COUNT 0 /CUMM (0.0-0.2); ABSOLUTE EOSINOPHIL COUNT 0.2 /CUMM (0.0-0.7); ABSOLUTE GRANULOCYTE CT 5.1 /CUMM (1.4-6.5); ABSOLUTE LYMPH COUNT 1.4 /CUMM (1.2-3.4); ABSOLUTE MONOCYTE COUNT 0.6 /CUMM (0.10-0.60); BASOPHIL % 0.2 % (0.0-2.0); EOSINOPHIL % 3.2 % (0-5); HEMATOCRIT 27.9 % (42-52); MEAN CORPUSCULAR HGB 31.3 PG (27.0-31.0); MEAN CORPUSCULAR HGB CONC 33.5 G/DL (33.0-37.0); MEAN CORPUSCULAR VOLUME 93.3 FL (80.0-94.0); MEAN PLATELET VOLUME 6.2 FL (7.4-10.4); PLATELET COUNT 273 /CUMM (130-400); RBC DISTRIBUTION WIDTH 17.1 % (11.5-14.5); RED BLOOD CELL CT 2.99 /CUMM (4.70-6.10); WHITE BLOOD CELL COUNT 7.4 /CUMM (4.8-10.8)
[2018-01-12] MEDS ORDERED: ASPIRIN81 M4 PO (08:53)
[2018-01-12] MEDS ORDERED: FINASTERIDE5 M1 PO (08:54)
[2018-01-12] MEDS ORDERED: TERAZOSIN HCL5 M1 PO (08:54)
[2018-01-12] MEDS ORDERED: METOPROLOL SUCC50 M2 PO (08:54)
[2018-01-12] MEDS ORDERED: DAILY MULTIPLE1 EACH PO (08:55)
[2018-01-12] MEDS ORDERED: PROTONIX40 M4 PO (09:12)
[2018-01-12 12:16] VITALS: BP 142/76
[2018-01-12 12:45] VITALS: BP 142/76
== END 2018-01-12 13:26 | DRG 378 ==
LOC: ERH 18:03 → 2NA 20:44 → ERHI 20:44 → ENRESERV 22:16 → ENTRNSPT 22:45 → 2NA 22:55 → CMPTRNSPT 01-09 07:18 → 2NA 01-09 08:13 → ENPENDDIS 01-12 09:41 → 2NA 01-12 13:26
PROVIDERS: Dermatology; Internal Medicine; Internal Medicine Infectious Disease; Physician Assistant Medical; Student in an Organized Health Care Education/Training Program
PROC: 30233N1 Transfusion of Nonautologous Red Blood Cells into Peripheral Vein, Percutaneous Approach (ICD-10-PCS; principal; 2018-01-09)
PROC: 0DB54ZX Excision of Esophagus, Percutaneous Endoscopic Approach, Diagnostic (ICD-10-PCS; 2018-01-10)
PROC: 0DB64ZX Excision of Stomach, Percutaneous Endoscopic Approach, Diagnostic (ICD-10-PCS; 2018-01-10)
DX: K92.2 Gastrointestinal hemorrhage, unspecified (principal); E87.2 Acidosis; F01.51 Vascular dementia, unspecified severity, with behavioral disturbance; I13.10 Hypertensive heart and chronic kidney disease without heart failure, with stage 1 through stage 4 chronic kidney disease, or unspecified chronic kidney disease; F05 Delirium due to known physiological condition; D62 Acute posthemorrhagic anemia; K92.1 Melena; N18.9 Chronic kidney disease, unspecified; Z85.038 Personal history of other malignant neoplasm of large intestine; Z85.118 Personal history of other malignant neoplasm of bronchus and lung; K22.2 Esophageal obstruction; I25.10 Atherosclerotic heart disease of native coronary artery without angina pectoris; Z90.49 Acquired absence of other specified parts of digestive tract; M48.00 Spinal stenosis, site unspecified; K64.4 Residual hemorrhoidal skin tags; Z87.891 Personal history of nicotine dependence; K64.8 Other hemorrhoids; Z88.2 Allergy status to sulfonamides; Z88.8 Allergy status to other drugs, medicaments and biological substances; D72.829 Elevated white blood cell count, unspecified; Z66 Do not resuscitate; B96.20 Unspecified Escherichia coli [E. coli] as the cause of diseases classified elsewhere
CPT/HCPCS: 2NAP; 36415; 36592; 74176; 81001; 82436; 86920; 87040; 87070; 87086; 93005; 93010; 97116-GO; 97161-GP; J7042; P9016

== ENCOUNTER 2018-02-26 18:07 | Inpatient (IN) | payer OTHER, MEDICARE ==
[~2018-02-26 18:07] MED LIST: ASPIRIN81 M4 PO; DAILY MULTIPLE1 EACH PO; FINASTERIDE5 M1 PO; METOPROLOL SUCC50 M2 PO; OMEPRAZOLE20 M2 PO; PROTONIX40 M4 PO; TERAZOSIN HCL5 M1 PO
--- NOTE | 2018-02-26 18:11 | ED DYSPNEA/ASTHMA COMPLAINT ---
History of Present Illness General Chief Complaint: Dyspnea (COPD, CHF, Other) Stated Complaint: R/O PNA Source: old records Exam Limitations: dementia Vital Signs & Intake/Output Vital Signs & Intake/Output Vital Signs Date Time Temp Pulse Resp B/P B/P Pulse O2 O2 Flow FiO2 Mean Ox Delivery Rate 02/26 1934 84 21 144/65 97 Nasal 3.0L Cannula 02/26 1912 99.1 02/26 1902 Nasal 3.0L Cannula 02/26 1901 86 96 Nasal 3.0L Cannula 02/26 1842 100.1 02/26 1808 100.1 99 22 165/96 92 Nasal 3.0L Cannula Allergies Coded Allergies: Sulfa (Sulfonamide Antibiotics) (URTICARIA 01/08/18) gabapentin (ABD PAIN 01/08/18) lorazepam (From ATIVAN) (AGITATION 01/08/18) ropinirole (From REQUIP) (EMESIS 01/08/18) tizanidine (DIZZINESS/EMESIS 01/08/18) Triage Nurses Notes Reviewed? yes Onset: Gradual Duration: constant Severity: severe HPI: Patient is a 87-year-old male with a past medical history of CAD, vascular dementia, CK D, hypertension, colon cancer, lung cancer currently not being treated for who presents emergency room brought in by ambulance from [facility] for concerns of chest x-ray findings of pneumonia or patient has had worsening cough and dyspnea History is limited due to patient's past medical history He is on 2 L of baseline O2 supplementation Old records indicate the patient currently is on Ceftin Old records also indicate that chest x-ray findings are worsen from an initial chest x-ray (Dillon Canseco) Reconcile Medications Acetaminophen (Acephen) 650 MG SUPP.RECT 1 SUPP AR Q6H PRN PAIN/TEMP>101 ( Reported) Acetaminophen (Pain Relief) 325 MG TABLET 2 TAB PO Q6H PRN PAIN/TEMP>101 ( Reported) Bisacodyl (Dulcolax) 10 MG SUPP.RECT 1 SUP RC DAILY PRN CONSTIPATION ( Reported) Finasteride 5 MG TABLET 1 TAB PO DAILY bph (Reported) Ipratropium/Albuterol Sulfate (Iprat-Albut 0.5-3(2.5) MG/3 Ml) 0.5 MG-3 MG (2.5 MG BASE)/3 ML AMPUL.NEB 1 VIAL INH Q4H RESP (Reported) Lactobacillus Acidophilus (Acidophilus) 1 EACH CAPSULE 2 CAP PO TID PROBIOTIC (Reported) Magnesium Hydroxide (Milk Of Magnesia) 400 MG/5 ML ORAL.SUSP 30 ML PO Q3D PRN CONSTIPATION (Reported) Metoprolol Succinate 50 MG TAB.ER.24H 1 TAB PO DAILY heart (Reported) Multivitamin (Daily Multiple Vitamin) 1 EACH TABLET 1 TAB PO DAILY supplement (Reported) Na Phos,M-B/Na Phos,Di-Ba (Fleet Enema) 19 GRAM-7 GRAM/118 ML ENEMA 1 E RC DAILY PRN CONSTIPATION (Reported) Naloxone HCl (Narcan) 4 MG/ACTUATION SPRAY 4 MG TAMIKA AD PRN OPIOID INDUCED RESP. DEPRESSIO (Reported) Ondansetron HCl 4 MG TABLET 1 TAB PO Q8H PRN N/V (Reported) Pantoprazole Sodium (Protonix) 40 MG GRANPKT.DR 1 TAB PO BID GI BLEED PLEASE TAKE FOR 2 MONTHS Terazosin HCl 2 MG CAPSULE 8 MG PO QHS BPH (Reported) (Myles ESCAMILLA,Sagar Arnold) Past History Medical History Any Pertinent Medical History? see below for history Neurological: CVA, dementia Cardiovascular: CAD, hypertension Gastrointestinal: internal and external hemorrhoids Musculoskeletal: osteoarthritis, SPINAL STENOSIS Cancer(s): colon/rectal cancer, lung cancer History of MRSA: No History of VRE: No History of CDIFF: No Surgical History Surgical History: colonic resection Psychosocial History What is your primary language Honduran Family History Family History, If Any: Relation not specified for: *No pertinent family history Hx Contributory? No (Dillon Canseco) Review of Systems Review of Systems Constitutional: Reports: no symptoms. EENTM: Reports: no symptoms. Respiratory: Reports: see HPI, cough. Cardiovascular: Reports: no symptoms. GI: Reports: no symptoms. Genitourinary: Reports: no symptoms. Musculoskeletal: Reports: no symptoms. Skin: Reports: no symptoms. Neurological/Psychological: Reports: no symptoms. Hematologic/Endocrine: Reports: no symptoms. Immunologic/Allergic: Reports: no symptoms. All Other Systems: Reviewed and Negative (Dillon Canseco) Physical Exam Physical Exam General Appearance: mild distress Head: atraumatic Eyes: Bilateral: normal appearance. Ears, Nose, Throat: normal pharynx Neck: normal inspection Respiratory: rhonchi Cardiovascular: regular rate/rhythm Gastrointestinal: normal bowel sounds, soft, no organomegaly Neurologic/Psych: awake Skin: intact, normal color Core Measures ACS in differential dx? Yes CVA/TIA Diagnosis No Sepsis Present: No Sepsis Focused Exam Completed? No (Erinn MCKEON,Dillon) Progress Differential Diagnosis: asthma, AMI, bronchitis, costochondritis, CHF, COPD, musculoskeletal pain, pericarditis, pulmonary embolism, pneumonia, pneumothorax, rib fracture, unstable angina Plan of Care: Orders Procedure Date/time Status Nothing by Mouth 02/27 B Active Patient Data 02/26 2018 Active Saline Lock 02/27 2012 Active Misc Message 02/27 2012 Active ED Holding Orders 02/27 2012 Active Admit to inpatient 02/27 2012 Active Vital Signs 02/27 2012 Active Code Status 02/27 2012 Active Intake & Output 02/26 1819 Active BLOOD CULTURE 02/27 1816 Active TROPONIN LEVEL 02/27 1816 Complete LACTIC ACID 02/27 1816 Complete COMPREHENSIVE METABOLIC PANEL 02/27 1816 Complete CBC WITHOUT DIFFERENTIAL 02/27 1816 Complete B-TYPE NATRIURETIC PEP (BNP) 02/27 1816 Complete EKG 02/27 1816 Active Laboratory Tests 02/26/18 1820: Anion Gap 11, Estimated GFR > 60, BUN/Creatinine Ratio 15.5, Glucose 107 H, Lactic Acid 1.2, Calcium 9.0, Total Bilirubin 0.6, AST 20, ALT 65, Alkaline Phosphatase 112, Troponin I < 0.01, Uqw-F-Ycbglnvlflh Pept 2040 H, Total Protein 6.4, Albumin 3.1 L, Globulin 3.3, Albumin/Globulin Ratio 0.9 L, CBC w Diff NO MAN DIFF REQ, RBC 3.28 L, MCV 90.7, MCH 29.5, MCHC 32.5 L, RDW 18.3 H , MPV 5.8 L, Gran % 82.3 H, Lymphocytes % 11.2 L, Monocytes % 4.9, Eosinophils % 1.4, Basophils % 0.2, Absolute Granulocytes 9.5 H, Absolute Lymphocytes 1.3, Absolute Monocytes 0.6, Absolute Eosinophils 0.2, Absolute Basophils 0 Microbiology 02/26 183 BLOOD: Blood Culture - RECD 02/27 1820 BLOOD: Blood Culture - RECD Patient on initial presentation with 4 L of oxygen supplementation was 94% Chest x-ray confirms pneumonia patient will be admitted Is noted through urine cultures patient has concomitant UTI No concerns of severe sepsis Fever has resolved prior to admission Diagnostic Imaging: Viewed by Me: Radiology Read. Radiology Impression: acute abnormality Initial ED EK BPM,MULTIPLE ARTIFACT Prior EKG: unchanged Comments: PATIENT: ABDIAS GUAJARDO PRESENT AGE: 87 PATIENT ACCOUNT NO: [id number] : [birth year] LOCATION: [facility] ORDERING PHYSICIAN: Dillon MCKEON SERVICE DATE: 02/26/18 EXAM TYPE: RAD - XRY-PORTABLE CHEST XRAY EXAMINATION: XR PORTABLE CHEST CLINICAL INFORMATION: Cough, fever COMPARISON: CT scan abdomen pelvis the same day TECHNIQUE: Portable AP view of the chest was obtained. FINDINGS: Hypoventilatory exam. The cardiomediastinal silhouette is unremarkable. There is pulmonary opacity in the left lower lobe with obscuration of the left diaphragmatic border. The right lung is clear. No pleural effusion or pneumothorax. The visualized bony thorax is intact. IMPRESSION: Left lower lobe pulmonary opacity can represent pneumonia. Clinical correlation is suggested. Follow-up imaging after completion of treatment of pneumonia is advised to ensure complete resolution. DICTATED BY: Socrates Pedraza MD DATE/TIME DICTATED:02/26/181955 LATHE OPERATOR:TAHMINA DATE/TIME TRANSCRIBED:02/26/181955 (Dillon Canseco) Departure Departure Disposition: STILL A PATIENT Condition: Stable Clinical Impression Primary Impression: Pneumonia Secondary Impressions: UTI (urinary tract infection) Referrals: Vivian Gonzalez MD (PCP/Family) Departure Forms: Customer Survey General Discharge Information Admission Note Spoke With: Mila Laura MD Documentation of Exam: Documentation of any treatments & extenuating circumstances including Concerns Regarding Discharge (functional status, medication knowledge or non-compliance, living conditions, etc.) that warrant an admission rather than observation: [ Patient requires IV antibiotics pulmonary consultation and repeat labs IV fluids and antipyretics and antitussives cultures pending] (Dillon Canseco) PA/RESPIRATORY COORDINATOR Co-Sign Statement Statement: ED Attending supervision documentation- [x] I saw and evaluated the patient. I have also reviewed all the pertinent lab results and diagnostic results. I agree with the findings and the plan of care as documented in the PA's/RESPIRATORY COORDINATOR's documentation. 02/26/18, 20:32... pt with pneumonia, failed previous course of abx, merits 02 support, iv abx. [] I have reviewed the ED Record and agree with the PA's/RESPIRATORY COORDINATOR's documentation. [] Additions or exceptions (if any) to the PAs/RESPIRATORY COORDINATOR's note and plan are summarized below: [] (Myles ESCAMILLA,Sagar Arnold) Critical Care Note Critical Care Note Critical Care Time: non-applicable (Erinn MCKEON,Dillon)
[2018-02-26 18:41] LABS: ABSOLUTE BASOPHIL COUNT 0 /CUMM (0.0-0.2); ABSOLUTE EOSINOPHIL COUNT 0.2 /CUMM (0.0-0.7); ABSOLUTE GRANULOCYTE CT 9.5 /CUMM (1.4-6.5); ABSOLUTE LYMPH COUNT 1.3 /CUMM (1.2-3.4); ABSOLUTE MONOCYTE COUNT 0.6 /CUMM (0.10-0.60); BASOPHIL % 0.2 % (0.0-2.0); EOSINOPHIL % 1.4 % (0-5); GRANULOCYTE % 82.3 % (42.2-75.2); HEMATOCRIT 29.8 % (42-52); MEAN CORPUSCULAR HGB 29.5 PG (27.0-31.0); MEAN CORPUSCULAR HGB CONC 32.5 G/DL (33.0-37.0); MEAN CORPUSCULAR VOLUME 90.7 FL (80.0-94.0); MEAN PLATELET VOLUME 5.8 FL (7.4-10.4); PLATELET COUNT 535 /CUMM (130-400); RBC DISTRIBUTION WIDTH 18.3 % (11.5-14.5); RED BLOOD CELL CT 3.28 /CUMM (4.70-6.10); WHITE BLOOD CELL COUNT 11.6 /CUMM (4.8-10.8)
--- NOTE | 2018-02-26 20:01 | RADIOLOGY REPORT ---
EXAMINATION: XR PORTABLE CHEST CLINICAL INFORMATION: Cough, fever COMPARISON: CT scan abdomen pelvis the same day TECHNIQUE: Portable AP view of the chest was obtained. FINDINGS: Hypoventilatory exam. The cardiomediastinal silhouette is unremarkable. There is pulmonary opacity in the left lower lobe with obscuration of the left diaphragmatic border. The right lung is clear. No pleural effusion or pneumothorax. The visualized bony thorax is intact. IMPRESSION: Left lower lobe pulmonary opacity can represent pneumonia. Clinical correlation is suggested. Follow-up imaging after completion of treatment of pneumonia is advised to ensure complete resolution.
[2018-02-26] MEDS ORDERED: NARCAN4 MG NAS (20:10)
[2018-02-26] MEDS ORDERED: TERAZOSIN HCL2 M1 PO (20:11)
[2018-02-26] MEDS ORDERED: ACIDOPHILUS1 EACH PO (20:12)
[2018-02-26] MEDS ORDERED: IPRAT-ALBUT 0.5-3 ML INH (20:13)
[2018-02-26] MEDS ORDERED: ACEPHEN650 M1 PR (20:15)
[2018-02-26] MEDS ORDERED: PAIN RELIEF325 MG PO (20:16)
[2018-02-26] MEDS ORDERED: ONDANSETRON HCL4 MG PO (20:16)
[2018-02-26] MEDS ORDERED: DULCOLAX10 M1 RC (20:17)
[2018-02-26] MEDS ORDERED: FLEET ENEMA133 ML RC (20:18)
[2018-02-26] MEDS ORDERED: MILK OF MA400 MG/52 PO (20:19)
--- NOTE | 2018-02-26 20:23 | History & Physical ---
RhodesAlessia 02/26/18 2020: General Information and HPI MD Statement: I have seen and personally examined ABDIAS GOLDEN and documented this H&P. The patient is a 87 year old M who presented with a patient stated chief complaint of [SOB]. Source of Information: patient, old records Exam Limitations: no limitations History of Present Illness: Mr. Golden is a 87yo M w/ PMH of CVA/dementia, CAD/hypertension, internal/external hemorrhoids, osteoarthritis, spinal stenosis, colorectal cancer S/P resection, lung cancer, brought to ER for ECF concerning CXR finding of pneumonia, with symptomatic worsening coughing/dyspnea. During our clinical interaction, patient was not fully oriented to provide a full history. Patient was a [facility] currently being taken care and Eusebio Cao, that doctor of nursing practice was contacted over the phone for complete history. Per doctor of nursing practice, patient was status post antibiotics of Ceftin 500 twice daily, doxycycline 100 mg twice daily, phone 02/17-02/24, for treatment of incidental finding of pneumonia on chest x-ray, started with shortness of breath/O2 sat 92% on room air/lung congestion on 02/17. Patient finished the course and then was doing fine for the last 3 days prior to this admission, and today patient's PT came to work with the patient on exercise, during exertion, patient's O2 sat dropped to 88%, with T-max 101.7 (afebrile in the morning), RR 28, lungs bilateral rhonchi on auscultation, QUALITY CONTROL CHECKER was notified and recommend 2 L nasal cannula and DuoNeb, was patient's O2 sat increased to 96%, stat chest x-ray showed lower lobe left lobe infiltrate/opacity increased in size compared to 02/17 CXR. As a corporate safety manager confirmed at baseline patient was ambulating w/ walker/gait belt (assitant of 1) , and was not on any home oxygen. At baseline patient was only alert to himself and constantly calling for help but however with state" I am okay",, and had repetitive behavior, however it was not really acute delirium, more than a dementia picture. Patient was recently seen in [facility] for upper GI bleed episode, that EGD was done by Dr. Bryant, was no active bleeding findings, and recommended to postpone colonoscopy to outpatient settings. However patient was not follow- up by GI outpatient in the previous month, and no GI bleeding episode was notified per ECF. ECF denied recent travel/sick contacts, fever/lightheadedness/diaphoresis/night sweat/weight change/cough/SOB/Chest Pain/Palpitation/Abdominal pain/bowel movement or urinary abnormality, or other skin/musculoskeletal/neurological/mood disorders, or dietary/appetite change. -Smoking: denied -Alcohol: denied -Rec Drugs: denied Allergies/Medications Allergies: Coded Allergies: Sulfa (Sulfonamide Antibiotics) (URTICARIA 01/08/18) gabapentin (ABD PAIN 01/08/18) lorazepam (From ATIVAN) (AGITATION 01/08/18) ropinirole (From REQUIP) (EMESIS 01/08/18) tizanidine (DIZZINESS/EMESIS 01/08/18) Home Med list Acetaminophen (Acephen) 650 MG SUPP.RECT 1 SUPP [place] Q6H PRN PAIN/TEMP>101 ( Reported) Acetaminophen (Pain Relief) 325 MG TABLET 2 TAB PO Q6H PRN PAIN/TEMP>101 ( Reported) Bisacodyl (Dulcolax) 10 MG SUPP.RECT 1 SUP RC DAILY PRN CONSTIPATION ( Reported) Finasteride 5 MG TABLET 1 TAB PO DAILY bph (Reported) Ipratropium/Albuterol Sulfate (Iprat-Albut 0.5-3(2.5) MG/3 Ml) 0.5 MG-3 MG (2.5 MG BASE)/3 ML AMPUL.NEB 1 VIAL INH Q4H RESP (Reported) Lactobacillus Acidophilus (Acidophilus) 1 EACH CAPSULE 2 CAP PO TID PROBIOTIC (Reported) Magnesium Hydroxide (Milk Of Magnesia) 400 MG/5 ML ORAL.SUSP 30 ML PO Q3D PRN CONSTIPATION (Reported) Metoprolol Succinate 50 MG TAB.ER.24H 1 TAB PO DAILY heart (Reported) Multivitamin (Daily Multiple Vitamin) 1 EACH TABLET 1 TAB PO DAILY supplement (Reported) Na Phos,M-B/Na Phos,Di-Ba (Fleet Enema) 19 GRAM-7 GRAM/118 ML ENEMA 1 E RC DAILY PRN CONSTIPATION (Reported) Naloxone HCl (Narcan) 4 MG/ACTUATION SPRAY 4 MG TAMIKA AD PRN OPIOID INDUCED RESP. DEPRESSIO (Reported) Ondansetron HCl 4 MG TABLET 1 TAB PO Q8H PRN N/V (Reported) Pantoprazole Sodium (Protonix) 40 MG TABLET.DR 1 TAB PO DAILY gerd (Reported) Terazosin HCl 2 MG CAPSULE 8 MG PO QHS BPH (Reported) Past History Travel History Traveled to [place] past 21 day No Medical History Neurological: CVA, dementia Cardiovascular: CAD, hypertension Gastrointestinal: internal and external hemorrhoids Musculoskeletal: osteoarthritis, SPINAL STENOSIS Cancer(s): colon/rectal cancer, lung cancer History of MRSA: No History of VRE: No History of CDIFF: No Surgical History Surgical History: colonic resection Past Family/Social History Family History Relations & Conditions if any Relation not specified for: *No pertinent family history Psychosocial History Primary Language: Estonian Living Will? yes Review of Systems Review of Systems Constitutional: Reports: see HPI. Exam & Diagnostic Data Last 24 Hrs of Vital Signs/I&O Vital Signs Date Time Temp Pulse Resp B/P B/P Pulse O2 O2 Flow FiO2 Mean Ox Delivery Rate 02/26 1934 84 21 144/65 97 Nasal 3.0L Cannula 02/26 1912 99.1 02/26 1902 Nasal 3.0L Cannula 02/26 1901 86 96 Nasal 3.0L Cannula 02/26 1842 100.1 02/26 1808 100.1 99 22 165/96 92 Nasal 3.0L Cannula Physical Exam General Appearance Alert, Cooperative, Mild Distress, oriented to himself only, could not give birthday/place/time/setting Skin No Rashes, No Breakdown, No Significant Lesion Skin Temp/Moisture Exam: Warm/Dry Sepsis Skin Exam (color): Normal for Ethnicity HEENT Atraumatic, PERRLA Neck Supple Cardiovascular Regular Rate Assessment/Plan Assessment: On admission, Vitals: T-max 100.1-> 98.1, tachycardia 99->84, RR 22, BP 165/96, 95% on 4 L -CBC: Mild leukocytosis 11.6, H/H 9.7/29.8 (around baseline after previous discharge from [facility] with GI bleed). -BMP: CR 1.1 at baseline, proBNP 2039 without any baseline insistent, negative troponin -UA/Microbiology: Pending was previous E. coli growing in the urine culture -CXR from [facility]: Left lower lobe infiltrate/opacity increased compared to 02/17 -Interventions in ER: Ceftriaxone/azithromycin Problem list/Assessment/Hospital Course: #Sepsis 2/2 pneumonia (fever, tachycardia, source of infection) #HCAP, pending rule out, however patient was previously treated for pneumonia as outpatient treatment with p.o. antibiotics, was not improving, would lean towards each At this point. 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 DVT prophylaxis Pharm PPX + ALPS Regular Diet DNR/DNI As Ranked By This Provider Problem List: 1. Pneumonia Core Measures/Misc (06/19) Acute Coronary Syndrome ACS Diagnosis: No Congestive Heart Failure Congestive Heart Failure Diagnosis No Cerebrovascular Accident CVA/TIA Diagnosis: No VTE (View Protocol) VTE Risk Factors Age>40 No Mechanical VTE Prophylaxis d/t N/A MechProphylax Ordered No VTE Pharm Prophylaxis d/t NA PharmProphylax ordered Sepsis (View protocol) Sepsis Present: Yes If YES complete Sepsis Event Note If YES complete Sepsis Event Note Al Hale 02/26/182121: Core Measures/Misc (06/19) Sepsis (View protocol) If YES complete Sepsis Event Note If YES complete Sepsis Event Note Resident Review Statement Resident Statement: examined this patient, discussed with analytics intern, agreed with analytics intern, amended to note Other Findings: Mr Chico Sharma is a 87-year-old gentleman with PMHx of CAD, hypertension, vascular dementia, h/o colon/rectal cancer s/p colon resection(dx'ed 30yrs ago) , GI bleed (EGD done) lung cancer ( not treated ), CKD was brought from [facility] with a chief concern of cough, dyspnea and hypoxemia. He was recently treated with antibiotics for the treatment of community-acquired pneumonia (02/17-02/24), and did not have any resolution of his symptoms. The history was limited, and was obtained from the nursing administrator. He was found to be hypoxic up to 88%, and febrile up to 101.7 after he worked with the physical therapy on the day of admission. A chest x-ray was obtained, which revealed worsening in consolidation compared to his previous chest x-ray which was done on 02/17, and was sent to [place] emergency room for evaluation. Other review of symptoms were negative for chest pain, palpitations. No new neurological symptoms noted. No abdominal pain, dysuria. At the time of admission temperature 100.1, pulse ox 99, respiration 22, blood pressure 165/96, 92% on 3 L oxygen. He was given ceftriaxone and azithromycin, and he came into the ED. General Exam: AAOx0, mild distress, Skin: No rashes, no breakdown, mucosal membranes dry;HEENT: PERRLA, EOMI;Neck: Supple, No JVD; No cervical lymphadenopathy;CVS: Reg Rate, Normal S1,S2, No MGR;Resp: Decreased air entry, ronchi/rales + ;Abdomen: Soft, No tenderness, Normal Bowel Sounds;Neuro: Normal Speech, Strength 5/5 b/l x 4 extremities, examination was limited, ;Extremities: No cyanosis, no pedal edema. EKG revealed normal sinus rhythm, with no ST-T wave changes. Pertinent lab findings-WBC 11.6, hemoglobin 9.7 (baseline 9.0), platelet count 535 (likely reactive), sodium 140 (dehydration), potassium 4.6, bicarbonate 27, anion gap 11, renal function-BUN 17, creatinine 1.1, troponin I-0.01, proBNP 2040. Liver chemistries-AST 20, ALT 65, alkaline phosphatase 112. Urinalysis clear with no evidence of leukocyte esterase, or nitrites or pyuria. Chest x-ray 02/26/2018-revealed Left lower lobe pulmonary opacity can represent pneumonia. Etiology in this case of leukocytosis, radiological evidence of consolidation in left lower lobe is likely from pneumonia. Given his recent admission to [facility] within the last 90 days, and history of possible lung cancer, details of which are unavailable at this time, healthcare associated pneumonia and/or postobstructive pneumonia should be considered in differentials while treatment. He has been treated with by mouth antibiotics so far, and has concerns for exposure to MRSA and Pseudomonas which should be treated with vancomycin and ceftazidime. In regards to his anemia, upper endoscopy was done on 01/10/2018 revealing GE junction tear versus healing ulcer, which needs to be monitored closely. Problem list: #1 pneumonia-likely healthcare associated pneumonia #2 history of hypertension #3 history of dementia, type unclear #4 history of colorectal cancer status post resection #5 history of lung cancer, details unclear #6 history of GI bleed, blood loss anemia #7 thrombocytosis likely reactive. Plan: #1 admit the patient to general medicine service. #2 start the patient on ceftazidime and vancomycin (15 mg/kg) twice a day dosing , pending lower respiratory cultures/blood cultures. Follow urine Legionella/ strep antigen. #3 trend lactate #4 TRC nebs, supplemental oxygen as needed #5 intravenous fluids with normal saline. Recheck BP in the a.m. #6 Hemoccult stool, iron studies, continue Protonix. If the patient has drop in his H&H in a.m., will type and crossmatch in a.m. #7 continue finasteride for BPH #8 monitor vitals closely. #9 restart antihypertensives in the a.m., if vitals are stable. Housekeeping checklist: #1 DVT prophylaxis-alps only. #2 GI prophylaxis-Protonix. #3 CODE STATUS-DNR/DNI #4 medication reconciliation-completed #5 diet-nothing by mouth for now. If the patient improves in the next 24 hours, get swallow evaluation and advance diet, accordingly. #6 consult-none at this time. Valentín ESCAMILLA, [facility] 02/26/18 3198: Core Measures/Misc (06/19) Sepsis (View protocol) If YES complete Sepsis Event Note If YES complete Sepsis Event Note Attending MD Review Statement Attending Statement Attending MD Statement: examined this patient, discuss w/resident/PA/LEAN FACILITATOR, agreed w/resident/PA/LEAN FACILITATOR, reviewed images, amended to note Attending Assessment/Plan: 87 yo M with h/o previous CVA, vascular dementia, CAD, HTN, CKD, chronic anemia, colon cancer s/p resection, lung cancer untreated, recently admitted (January 2018 ) for upper GI bleed noted to have a GE junction tear vs healing ulcer, is brought in from [facility] for worsening cough, dyspnea, tachypnea and hypoxia requiring O2 supplementation. History is limited due to patient's underlying dementia. As per [facility] records, patient was treated with Ceftin and doxy for LLL pneumonia from February 17 to . Today he walked with PT and was noted to be hypoxic to 88%, SOB and febrile to 101.7. A CXR done at the [facility] showed worsening LLL infiltrate (compared to prior) . Patient keeps repeating please help me. Vitals: Tmax 100.1, HR 80-90's, BP 144/64, sats 95% on 4L. Exam: Awake, alert, confused. Dry mucosa, Chest left sided rhonchi++, with bibasilar crackles. LE: trace edema. Labs: WBC 11.6, H/H 9.7/29.8 (stable baseline), Plt 535, lactic acid 1.2, trop neg, proBNP 2040. UA negative. CXR: left lower lobe pulmonary opacity. EKG: sinus tachycardia, LAD, Qtc 423. Assessment and plan: 1. Acute hypoxic respiratory failure 2. Left lower lobe pneumonia HCAP 3. Failed outpatient therapy 4. History of CVA and vascular dementia 5. History of CAD 6. History of lung cancer - Admit to General medicine - Scheduled and PRN nebs - Blood and sputum culture - Broad spectrum antibiotics ceftaz and vanco, can de-escalate based on cultures - IV fluids gentle hydration, no evidence of congestive heart failure - NPO, swallow eval in AM - Resume metoprolol, protonix, finasteride, terazosin and acidophilus. - Monitor H and H, goal > 8.0 - Eventual PT eval DVT ppx Alps/ Lovenox. DNR/I. - Eventual PT eval DVT ppx Alps/ Lovenox. DNR/I.
[2018-02-26] MEDS ORDERED: SEROQUEL100 M1 PO (21:48)
[2018-02-26] MEDS ORDERED: LISINOPRIL2.5 M1 PO (21:49)
[2018-02-26] MEDS ORDERED: ALLEGRA ALLERG180 M1 PO (21:49)
[2018-02-26] MEDS ORDERED: FERROUS SULFAT325 M3 PO (21:49)
[2018-02-26] MEDS ORDERED: OMEPRAZOLE20 M3 PO (21:50)
[2018-02-26] MEDS ORDERED: VESICARE10 MG PO (21:51)
[2018-02-26] MEDS ORDERED: SYNTHROID175 MCG PO (21:51)
[2018-02-26 22:38] VITALS: BP 144/64
--- NOTE | 2018-02-26 23:38 | Admission Certification ---
Admission Certification Certification Statement - As attending physician, I certify that at the time of - admission, based on clinical presentation, severity of - symptoms, need for further diagnostic testing and - therapeutic interventions, and risk of adverse outcomes - without in-hospital treatment, in my clinical assessment, - this patient requires an acute hospital stay for a minimum - of two nights or longer. I have also considered psychsocial - factors such as support system, advanced age, financial - issues, cognitive issues, and failed out-patient treatments, - past re-admission history, safety of patient, and lack of - compliance as applicable. Specific rationale supporting this admission is: Acute hypoxic respiratory failure, healthcare associated pneumonia, failed outpatient therapy.
[2018-02-27] MEDS ORDERED: PROTONIX40 M3 PO ×2 (02:01→02:02)
[2018-02-27 05:57] VITALS: BP 146/78
--- NOTE | 2018-02-27 09:19 | PN- Housestaff ---
See Addendum Subjective Follow-up For: 1. Acute hypoxic respiratory failure 2. Left lower lobe pneumonia HCAP 3. Failed outpatient therapy Subjective: Coughing constantly. Not bringing up any phlegm, but feels congested. Only oriented to name, not oriented to date of , place. Review of Systems Constitutional: Reports: see HPI. Objective Last 24 Hrs of Vital Signs/I&O Vital Signs Date Time Temp Pulse Resp B/P B/P Pulse O2 O2 Flow FiO2 Mean Ox Delivery Rate 02/27 557 99.6 76 24 146/78 95 Nasal 4.0L Cannula 02/27 0000 Nasal 4.0L Cannula 02/26 2238 98.8 86 24 144/64 95 Nasal Cannula 02/26 223 95 Nasal 4.0L Cannula 02/26 2104 99.0 83 20 154/71 97 Nasal 3.0L Cannula 02/26 1934 84 21 144/65 97 Nasal 3.0L Cannula 02/26 1912 99.1 02/26 1902 Nasal 3.0L Cannula 02/26 1901 86 96 Nasal 3.0L Cannula 02/26 1842 100.1 02/26 1808 100.1 99 22 165/96 92 Nasal 3.0L Cannula Intake & Output 02/27 1600 02/27 0800 02/27 0000 Intake Total 1050 Output Total 450 Balance 600 Intake, IV 1050 Output, Urine 450 Patient 211 lb Weight Weight Bed scale Measurement Method Physical Exam General Appearance: Alert, Oriented to name HEENT: Atraumatic, PERRLA Cardiovascular: Regular Rate, Normal S1, Normal S2 Lungs: Lt sided ronchi, basilar crackles Abdomen: Normal Bowel Sounds, Soft Extremities: Trcae b/l edema Current Medications: Current Medications Sig/Akila Start time Last Medication Dose Route Stop Time Status Admin Acetaminophen 0 .STK-MED ONE 02/27 1848 DC IV Acetaminophen 1,000 MG ONCE ONE 02/26 1830 DC 02/26 N/A 1 UNIT IV 02/27 1844 184 Azithromycin 500 MG ONCE ONE 02/26 1830 DC 02/26 Sodium Chloride 250 ML IV 02/26 192 185 Ceftazidime 1,000 MG IQ8 02/26 2230 AC 02/27 IV 0857 Ceftriaxone Sodium 0 .STK-MED ONE 02/27 1848 DC .ROUTE Ceftriaxone Sodium 1,000 MG ONCE ONE 02/26 1830 DC 02/26 IV 02/26 1831 1845 Finasteride 5 MG DAILY 02/27 0900 AC PO Metoprolol Succinate 50 MG DAILY 02/27 0900 AC PO Omeprazole 40 MG DAILY AC 02/27 0700 AC PO Sodium Chloride 1,000 ML ONCE ONE 02/26 2145 DC 02/26 IV 02/27 0744 2300 Sodium Chloride 500 ML BOLUS ONE 02/26 1830 DC 02/26 IV 02/26 1929 1849 Vancomycin HCl 1,000 MG BID 02/26 2230 AC 02/27 Sodium Chloride 250 ML IV 0857 Last 24 Hrs of Lab/Yang Results Last 24 Hrs of Labs/Mics: Laboratory Tests 02/27/18 0653: CBC w Diff Pending, WBC Pending, RBC Pending, Hgb Pending, Hct Pending, MCV Pending, MCH Pending, MCHC Pending, RDW Pending, Plt Count Pending, MPV Pending 02/27/18 0605: Sodium Pending, Potassium Pending, Chloride Pending, Carbon Dioxide Pending, Anion Gap Pending, BUN Pending, Creatinine Pending, BUN/Creatinine Ratio Pending 02/27/18 0045: Urine Color YEL, Urine Clarity CLEAR, Urine pH 6.0, Ur Specific Sherrill 1.020, Urine Protein NEG, Urine Ketones NEG, Urine Nitrite NEG, Urine Bilirubin NEG, Urine Urobilinogen 0.2, Ur Leukocyte Esterase NEG, Ur Microscopic EXAM NOT REQUIRED, Urine Hemoglobin NEG, Urine Glucose NEG 02/26/18 2116: Lactic Acid Cancelled 02/26/18 1820: Anion Gap 11, Estimated GFR > 60, BUN/Creatinine Ratio 15.5, Glucose 107 H, Lactic Acid 1.2, Calcium 9.0, Iron 22 L, TIBC 269, Ferritin 120.0, Total Bilirubin 0.6, AST 20, ALT 65, Alkaline Phosphatase 112, Troponin I < 0.01, Pro- B-Natriuretic Pept 2040 H, Total Protein 6.4, Albumin 3.1 L, Globulin 3.3, Albumin/Globulin Ratio 0.9 L, CBC w Diff NO MAN DIFF REQ, RBC 3.28 L, MCV 90.7 , MCH 29.5, MCHC 32.5 L, RDW 18.3 H, MPV 5.8 L, Gran % 82.3 H, Lymphocytes % 11.2 L, Monocytes % 4.9, Eosinophils % 1.4, Basophils % 0.2, Absolute Granulocytes 9.5 H, Absolute Lymphocytes 1.3, Absolute Monocytes 0.6, Absolute Eosinophils 0.2, Absolute Basophils 0 Microbiology 02/27 45 URINE ROUT: Urine Culture - RECD 02/27 45 URINE ROUT: Legionella Antigen - COMP 02/27 45 URINE ROUT: Streptococcus pneumoniae Antigen (M - COMP 02/26 1834 BLOOD: Blood Culture - RECD 02/26 182 BLOOD: Blood Culture - RECD Assessment/Plan Assessment: 87 yo M with h/o previous CVA, vascular dementia, CAD, HTN, CKD, chronic anemia, colon cancer s/p resection, lung cancer untreated, recently admitted (January 2018 ) for upper GI bleed noted to have a GE junction tear vs healing ulcer, was brought in from [facility] for worsening cough, dyspnea, tachypnea and hypoxia requiring O2 supplementation. Leukocytosis. CXR: left lower lobe pulmonary opacity. 1. Acute Hypoxemic resp failure likely 2/2 Left lower lobe PNA: Treat as HCAP with Vanco/Ceftaz, given recent inpatient hospitalization. Follow BC and sputum cultures. Can likely switch to Ceftrxn/Zithro given only mild leukocytosis, normal lactate and lysis with Ceftriaxone x 1 in ED. Await swallow eval. Supplemental O2 as needed. 2. Respiratory distress, h/o lung cancer; likely COPD. TRC, will resume home meds. May benefit from deep suctioning, request respirtatory. Mucinex ER. Or Inhalational NAC. 3. BPH. Cont home meds. 4. GERD. Protonix as prescribed. NPO DNR/DNI Lovenox for DVT ppx. Problem List: 1. Pneumonia Pain Ratin Pain Location: None Pain Goal: Remain pain free Pain Plan: PRN Tomorrow's Labs & Rationales: Acute infection - CBC and BEP.
[2018-02-27 09:26] LABS: ABSOLUTE BASOPHIL COUNT 0 /CUMM (0.0-0.2); ABSOLUTE EOSINOPHIL COUNT 0.2 /CUMM (0.0-0.7); BASOPHIL % 0.1 % (0.0-2.0); MEAN PLATELET VOLUME 6.1 FL (7.4-10.4)
[2018-02-27 09:30] LABS: ABSOLUTE GRANULOCYTE CT 8.6 /CUMM (1.4-6.5); ABSOLUTE MONOCYTE COUNT 0.5 /CUMM (0.10-0.60); EOSINOPHIL % 1.6 % (0-5); HEMATOCRIT 25.9 % (42-52); MEAN CORPUSCULAR HGB 29.5 PG (27.0-31.0); MEAN CORPUSCULAR HGB CONC 32.5 G/DL (33.0-37.0); MEAN CORPUSCULAR VOLUME 90.7 FL (80.0-94.0); PLATELET COUNT 435 /CUMM (130-400); RBC DISTRIBUTION WIDTH 18.4 % (11.5-14.5); RED BLOOD CELL CT 2.85 /CUMM (4.70-6.10); WHITE BLOOD CELL COUNT 10.2 /CUMM (4.8-10.8)
[2018-02-27 10:34] LABS: GRANULOCYTE % 84.2 % (42.2-75.2)
[2018-02-27 14:08] VITALS: BP 142/80
[2018-02-27 21:32] VITALS: BP 152/70
[2018-02-28 06:20] VITALS: BP 140/66
--- NOTE | 2018-02-28 07:44 | PN- Housestaff ---
Mya ESCAMILLA,Kimberly 02/28/18 0744: Subjective Follow-up For: 1. Acute hypoxic respiratory failure 2. Left lower lobe pneumonia HCAP 3. Failed outpatient therapy Subjective: Patient seen and examined. He is alert and oriented at the time of question all other have been account that the patient has periods of confusion. He is not in any respiratory distress. The patient continues to have cough and shortness of breath and is currently on 5 L of oxygen. Review of Systems Constitutional: Reports: no symptoms. EENTM: Reports: no symptoms. Cardiovascular: Reports: no symptoms. Respiratory: Reports: cough, short of breath. Gastrointestinal: Reports: no symptoms. Genitourinary: Reports: no symptoms. Musculoskeletal: Reports: no symptoms. Skin: Reports: no symptoms. Neurological/Psychological: Reports: confusion. Objective Last 24 Hrs of Vital Signs/I&O Vital Signs Date Time Temp Pulse Resp B/P B/P Pulse O2 O2 Flow FiO2 Mean Ox Delivery Rate 02/28 1803 94 Nasal 5.0L Cannula 02/28 1800 94 Nasal 6.0L Cannula 02/28 1544 Nasal 5.0L Cannula 02/28 1357 97.2 82 20 132/60 91 Room Air 02/28 1328 94 Nasal 5.0L Cannula 02/28 0850 88 140/66 02/28 0830 97.9 02/28 0800 Nasal 5.0L Cannula 02/28 0700 100.4 02/28 0620 100.1 88 20 140/66 96 Nasal Cannula 02/28 0000 Nasal 5.0L Cannula 02/27 2132 99.8 91 22 152/70 95 Nasal Cannula Intake & Output 02/28 1600 02/28 0800 02/28 0000 Intake Total 220 100 270 Output Total Balance 220 100 270 Intake, IV 100 100 250 Intake, Oral 120 0 20 Number 0 0 Bowel Movements Patient 212 lb 215 lb Weight Weight Bed scale Bed scale Measurement Method Physical Exam General Appearance: Alert, Cooperative, No Acute Distress Skin: No Rashes, No Breakdown, No Significant Lesion Skin Temp/Moisture Exam: Warm/Dry Sepsis Skin Exam (color): Normal for Ethnicity HEENT: Atraumatic, EOMI, Mucous Membr. moist/pink Neck: Supple, No JVD Cardiovascular: Regular Rate, Normal S1, Normal S2, No Murmurs Lungs: patient has widespread crackles that are audible without auscultation. Abdomen: Normal Bowel Sounds, Soft, No Tenderness, No Hepatospenomegaly Neurological: Normal Speech Extremities: No Clubbing, No Edema, Normal Pulses, No Tenderness/Swelling Vascular: Normal Pulses, Pulses Symmetrical Current Medications: Current Medications Sig/Akila Start time Last Medication Dose Route Stop Time Status Admin Acetaminophen 1,000 MG ONCE ONE 02/28 0700 DC 02/28 N/A 1 UNIT IV 02/28 0714 0700 Acetaminophen 650 MG .STK-MED ONE 02/28 0515 DC PO 02/28 0516 Albuterol Sulfate 3 ML Q4P PRN 02/27 1015 AC 02/28 INH 0237 Ceftazidime 1,000 MG IQ8 02/26 2230 AC 02/28 IV 1542 Doxazosin Mesylate 2 MG DAILY 02/28 0900 AC 02/28 PO 0850 Finasteride 5 MG DAILY 02/27 0900 AC 02/28 PO 0850 Heparin Sodium 5,000 UNIT Q8 02/28 1411 AC 02/28 (Porcine) SC 1435 Metoprolol Succinate 50 MG DAILY 02/27 0900 AC 02/28 PO 0850 Omeprazole 40 MG DAILY AC 02/27 0700 AC 02/28 PO 0522 Tiotropium [place] 1 PUF DAILY 02/27 0911 AC 02/28 INH 0850 Vancomycin HCl 1,000 MG BID 02/26 2230 AC 02/28 Sodium Chloride 250 ML IV 0850 Last 24 Hrs of Lab/Yang Results Last 24 Hrs of Labs/Mics: Microbiology 02/28 958 LOWER RESP: Respiratory Culture - COLB 02/28 958 LOWER RESP: Gram Stain - COLB Assessment/Plan Assessment: 87 yo M with h/o previous CVA, vascular dementia, CAD, HTN, CKD, chronic anemia, colon cancer s/p resection, lung cancer untreated, recently admitted (January 2018 ) for upper GI bleed noted to have a GE junction tear vs healing ulcer, was brought in from [facility] for worsening cough, dyspnea, tachypnea and hypoxia requiring O2 supplementation of 5 L, not usually on home oxygen.. Leukocytosis. CXR: left lower lobe pulmonary opacity. 1. Acute Hypoxemic resp failure likely 2/2 Left lower lobe PNA: Treating as HCAP with Vanco/Ceftaz, given recent inpatient hospitalization. Follow BC and sputum cultures. Patient was previously treated from February 17 to the on Ceftin 500 twice a day and doxycycline 100 twice a day. He was septic at the time of admission with chest x-ray showing left lower lobe opacity Await swallow eval. Supplemental O2 as needed and we'll taper. The fact the patient failed his recent antibiotics is support for a postobstructive pneumonia versus recurrent aspiration. The patient did fail a swallow eval here and today had a modified barium swallow done which he did pass so a regular diet was ordered. We will ambulate the patient with physical therapy so that we don't compound his lung issues with deconditioning. 2. BPH. Cont home meds. 3. GERD. Protonix as prescribed. 4. Recent GI bleed: Patient was seen by Dr. Bryant for EGD on his last admission in January. No active bleed was found. Repeat CBC in 48 hours to ensure that his hemoglobin level is stable. NPO DNR/DNI Lovenox for DVT ppx. Problem List: 1. Pneumonia Pain Ratin Pain Location: na Pain Goal: Remain pain free Pain Plan: na Tomorrow's Labs & Rationales: monica Gardner MD,Tia 02/28/18 1142: Attending MD Review Statement Attending Statement Attending MD Statement: examined this patient, discuss w/resident/PA/MORTAR CARRIER, agreed w/resident/PA/MORTAR CARRIER, reviewed EMR data (avail), discussed with nursing, discussed with case mgmt, amended to note Attending Assessment/Plan: Patient seen and examined. Lying comfortably in bed and not in any acute distress. Nurses reported overnight he was mildly confused pulling at his underwear. Continues to be febrile with a T-max of 100.4 earlier this morning. He remains hypoxic requiring 5 L of oxygen to maintain saturation. Blood pressure is stable. On examination he is alert but with periods of confusion. Follows simple commands. Not in any respiratory distress. He has diffuse crackles on examination. Heart sounds are regular. Abdomen soft and nontender. He has no peripheral edema. He failed a bedside swallow evaluation yesterday and recommendations are for patient to undergo modified barium swallow today. Problems: 1. Acute hypoxic respiratory failure. 2. Left lower lobe pneumonia with concerns for aspiration and gram-negative pathogens. 3. Dementia 4. History of lung cancer. 5. History of colon cancer status post resection. 6. Coronary artery disease 7. History of stroke 8. Chronic anemia. Plan: -Continue antibiotic therapy with IV vancomycin and ceftaz. -Obtain sputum cultures. -Once afebrile and if he remains hemodynamically stable will consider transitioning to oral antibiotic therapy. -Modified barium swallow as recommended by the speech and language pathologist. -Recommend follow-up imaging with chest x-ray and possibly chest CT scan once this episode of pneumonia resolves. His recurrent episode of pneumonia soon after treatment in the [facility] raises concern for recurrent aspiration versus postobstructive pneumonia. -Taper down oxygen supplementation as tolerated -Repeat CBC in 48 hours to ensure that his hemoglobin level is stable. -DVT prophylaxis with heparin subcu
[2018-02-28 13:57] VITALS: BP 132/60
--- NOTE | 2018-02-28 14:31 | RADIOLOGY REPORT ---
EXAMINATION: XR MODIFIED BARIUM SWALLOW CLINICAL INFORMATION: Coughing. Evaluate for aspiration. COMPARISON: None. TECHNIQUE: Fluoroscopic assistance was provided during a modified barium swallow performed in cooperation with the speech pathology service. FLUOROSCOPY TIME: 1 minute, 32 seconds. NUMBER OF SAVED IMAGES: No spot fluoroscopy images were acquired. Only screening capture images were saved. FINDINGS: The modified barium swallow examination was performed in cooperation with the speech pathologist using dynamic fluoroscopic imaging in a lateral projection. The patient's swallowing function was observed during administration of apple sauce puree, honey, nectar, thin barium contrast, and barium coated bread and cracker. There were no episodes of tracheal aspiration or penetration. After swallowing bread, a small amount of residual material was present in the vallecula; this cleared on subsequent swallows. There was multilevel discovertebral degenerative change of the partially visualized cervical spine. IMPRESSION: No evidence of tracheal aspiration or penetration.
[2018-02-28 22:30] VITALS: BP 150/60
[2018-03-01 06:20] VITALS: BP 148/74
--- NOTE | 2018-03-01 07:34 | PN- Housestaff ---
Mya ESCAMILLA,Kimberly 03/01/18 0733: Subjective Follow-up For: HCAP questionable CHF Subjective: Patient continues to be short of breath requiring 5 L and breathing treatments. Crackles are audible without stethoscope. He has periods of confusion but is able to communicate meaningfully. He denies chest pain, abdominal pain, cough. He notes he has mucous congestion but cannot bring anyting up. Review of Systems Constitutional: Reports: no symptoms. EENTM: Reports: no symptoms. Cardiovascular: Reports: no symptoms. Respiratory: Reports: short of breath, sputum production. Gastrointestinal: Reports: no symptoms. Genitourinary: Reports: no symptoms. Musculoskeletal: Reports: no symptoms. Skin: Reports: no symptoms. Neurological/Psychological: Reports: no symptoms. Objective Last 24 Hrs of Vital Signs/I&O Vital Signs Date Time Temp Pulse Resp B/P B/P Pulse O2 O2 Flow FiO2 Mean Ox Delivery Rate 03/01 1600 Nasal 5.0L Cannula 03/01 1439 97.2 89 18 120/70 90 03/01 1103 92 Nasal 5.0L Cannula 03/01 0821 76 148/74 03/01 0800 Nasal 5.0L Cannula 03/01 0620 98.4 76 20 148/74 91 Nasal Cannula 03/01 0415 99.4 03/01 0215 99.4 03/01 0205 94 Nasal 5.0L Cannula 03/01 0115 100.2 03/01 0038 100.2 03/01 0000 Nasal 5.0L Cannula 02/28 2230 98.2 101 20 150/60 91 Nasal Cannula 02/28 1803 94 Nasal 5.0L Cannula 02/28 1800 94 Nasal 6.0L Cannula Intake & Output 03/01 1600 03/01 0800 03/01 0000 Intake Total 480 360 600 Output Total Balance 480 360 600 Intake, Oral 480 360 600 Number 1 0 Bowel Movements Patient 212 lb Weight Weight Bed scale Measurement Method Physical Exam General Appearance: Alert, Oriented X3, Cooperative, No Acute Distress Skin: No Rashes, No Breakdown, No Significant Lesion Cardiovascular: Regular Rate, Normal S1, Normal S2 Lungs: widespread crackles and rales Abdomen: Normal Bowel Sounds, Soft, No Tenderness Neurological: Normal Speech Extremities: No Clubbing, No Cyanosis, No Edema Vascular: Normal Pulses, Pulses Symmetrical Current Medications: Current Medications Sig/Akila Start time Last Medication Dose Route Stop Time Status Admin Acetaminophen 650 MG .STK-MED ONE 03/01 1539 DC PO 03/01 1540 Acetaminophen 1,000 MG Q12P PRN 03/01 0815 AC N/A 1 UNIT IV Acetaminophen 650 MG ONCE ONE 03/01 0045 DC 03/01 PO 03/01 0046 0115 Acetylcysteine 4 ML ONCE ONE 03/01 1130 DC INH 03/01 1131 Albuterol Sulfate 3 ML BID 03/01 2100 AC INH Albuterol Sulfate 3 ML Q4P PRN 02/27 1015 DC 03/01 INH 0203 Ceftazidime 1,000 MG IQ8 02/26 2230 AC 03/01 IV 1539 Doxazosin Mesylate 2 MG DAILY 02/28 0900 AC 03/01 PO 0822 Finasteride 5 MG DAILY 02/27 0900 AC 03/01 PO 0822 Furosemide 40 MG ONCE ONE 03/01 1130 DC 03/01 IV 03/01 1131 1149 Heparin Sodium 5,000 UNIT Q8 02/28 1411 AC 03/01 (Porcine) SC 1353 Metoprolol Succinate 50 MG DAILY 02/27 0900 AC 03/01 PO 0821 Omeprazole 40 MG DAILY AC 02/27 0700 AC 03/01 PO 0530 Patient Medication 1 ED ONE ONE 02/28 1830 DC 02/28 Teaching ED 02/28 1832000 Sertraline HCl 25 MG DAILY 03/01 1630 CAN PO Tiotropium [place] 1 PUF DAILY 02/27 0911 AC 03/01 INH 0821 Vancomycin HCl 1,000 MG BID 02/26 2230 AC 03/01 Sodium Chloride 250 ML IV 0822 Last 24 Hrs of Lab/Yang Results Last 24 Hrs of Labs/Mics: Laboratory Tests 03/01/18 0915: CBC w Diff NO MAN DIFF REQ, RBC 3.05 L, MCV 89.9, MCH 29.4, MCHC 32.7 L, RDW 18.0 H, MPV 5.7 L, Gran % 80.9 H, Lymphocytes % 10.1 L, Monocytes % 7.1, Eosinophils % 1.5, Basophils % 0.4, Absolute Granulocytes 7.6 H, Absolute Lymphocytes 1.0 L, Absolute Monocytes 0.7 H, Absolute Eosinophils 0.1, Absolute Basophils 0 Microbiology 03/01 1626 HEAD/NECK: Surveillance Culture - ORD Assessment/Plan Assessment: 87 yo M with h/o previous CVA, vascular dementia, CAD, HTN, CKD, chronic anemia, colon cancer s/p resection, lung cancer untreated, recently admitted (January 2018 ) for upper GI bleed noted to have a GE junction tear vs healing ulcer, was brought in from [facility] for worsening cough, dyspnea, tachypnea and hypoxia requiring O2 supplementation of 5 L, not usually on home oxygen.. Leukocytosis. CXR: left lower lobe pulmonary opacity. 1. Acute Hypoxemic resp failure likely 2/2 left lower lobe PNA: Treating as HCAP with Vanco/Ceftaz, given recent inpatient hospitalization. Follow BC and sputum cultures. Patient was previously treated from February 17 to the on Ceftin 500 twice a day and doxycycline 100 twice a day. He was septic at the time of admission with chest x-ray showing left lower lobe opacity. Patient passed MBS swallow eval. Supplemental O2 taper as needed. CXR today showed increasing interstitial markings from previous scan. This is suggestive of CHF component. We will order an echo and give one dose of IV lasix 40mg. We will also order chest PT, mucomyst INH, and deep suction. We will ambulate the patient with physical therapy so that we don't compound his lung issues with deconditioning. We will need imaging to follow up resolution. 2. BPH. Cont home meds. 3. GERD. Protonix as prescribed. 4. Recent GI bleed: Patient was seen by Dr. Bryant for EGD on his last admission in January. No active bleed was found. Repeat CBC in 48 hours to ensure that his hemoglobin level is stable. NPO DNR/DNI Lovenox for DVT ppx. Problem List: 1. Pneumonia Pain Ratin Pain Location: na Pain Goal: Pain 4 or less Pain Plan: na Tomorrow's Labs & Rationales: monica Gardner MD,Tia 03/01/18 1135: Attending MD Review Statement Attending Statement Attending Statement: examined this patient, discuss w/resident/PA/EMULSION OPERATOR, agreed w/resident/PA/EMULSION OPERATOR, reviewed EMR data (avail), discussed with nursing, discussed with case mgmt, amended to note Attending Assessment/Plan: Patient seen and examined. No events overnight reported by nursing staff. He had a T-max of 100.4 yesterday. Temperature 100.2 11 this morning. He continues to require oxygen supplementation. He is currently on 5 L of oxygen. On examination he has audible congested breath sounds from the bedside. He does not appear to be in respiratory distress. He is unable to expectorate effectively. On auscultation he has adequate entry bilaterally however with diffuse congested breath sounds. Chest x-ray ordered today shows interval increase in interstitial prominence bilaterally which may reflect developing interstitial edema. There is a persistent ill-defined left basilar opacity. His BNP on admission was over 2000. He has no jugular venous distention. He has no peripheral edema. He passed a modified barium swallow yesterday. Apparently he is more alert compared to presentation and has been cleared for a modified diet by the speech and language pathologist. Problems: 1. Acute hypoxic respiratory failure. Likely combination of pneumonia and pulmonary congestion. 2. Left lower lobe pneumonia with concerns for aspiration and gram-negative pathogens. 3. Dementia 4. History of lung cancer. 5. History of colon cancer status post resection. 6. Coronary artery disease 7. History of stroke 8. Chronic anemia. Plan: -Chest x-ray today is suggestive of increasing pulmonary congestion. Begin patient on Lasix 40 mg IV daily. Monitor daily weights and input output. Obtain echocardiogram. -His fever and leukocytosis present on admission raise concern for an infectious process. Chest x-ray suggestive of left lower lobe pneumonia. It is noted that in January CT abdomen done on account of his GI bleeding revealed a large left lower lobe atelectatic consolidation. -Continue current treatment with antibiotic therapy and diuresis. Wean down oxygen supplementation as tolerated. If despite above treatment he continues to require significant oxygen supplementation will consider dedicated chest CT imaging. He will require repeat chest imaging following above treatments to evaluate resolution of the left lower lobe infiltrate. -Modified diet as recommended by the speech and language pathologist. -Mobilize patient as tolerated. -Repeat serum chemistry in a.m. No need to repeat CBC tomorrow.
[2018-03-01 09:32] LABS: ABSOLUTE BASOPHIL COUNT 0 /CUMM (0.0-0.2); ABSOLUTE EOSINOPHIL COUNT 0.1 /CUMM (0.0-0.7); ABSOLUTE GRANULOCYTE CT 7.6 /CUMM (1.4-6.5); ABSOLUTE MONOCYTE COUNT 0.7 /CUMM (0.10-0.60); BASOPHIL % 0.4 % (0.0-2.0); EOSINOPHIL % 1.5 % (0-5); GRANULOCYTE % 80.9 % (42.2-75.2); HEMATOCRIT 27.4 % (42-52); MEAN CORPUSCULAR HGB 29.4 PG (27.0-31.0); MEAN CORPUSCULAR HGB CONC 32.7 G/DL (33.0-37.0); MEAN CORPUSCULAR VOLUME 89.9 FL (80.0-94.0); MEAN PLATELET VOLUME 5.7 FL (7.4-10.4); PLATELET COUNT 508 /CUMM (130-400); RED BLOOD CELL CT 3.05 /CUMM (4.70-6.10); WHITE BLOOD CELL COUNT 9.4 /CUMM (4.8-10.8)
--- NOTE | 2018-03-01 10:05 | RADIOLOGY REPORT ---
EXAMINATION: XR CHEST CLINICAL INFORMATION: Evaluate for lung pathology COMPARISON: 02/26/2018 TECHNIQUE: 2 views of the chest were obtained. FINDINGS: Lung volumes are symmetric. In comparison to the prior examination there is increased interstitial prominence bilaterally. Ill-defined opacity at the left lung base is similar to prior. No evidence of pneumothorax. Trace pleural effusions may be present. The cardiomediastinal silhouette is stable. Calcification is present at the aortic arch. No acute osseous findings are seen. IMPRESSION: Interval increase in interstitial prominence bilaterally, which may reflect developing interstitial edema. Persistent ill-defined left basilar opacity.
[2018-03-01 14:39] VITALS: BP 120/70
[2018-03-01 22:05] VITALS: BP 132/70
[2018-03-02 05:23] VITALS: BP 130/64
--- NOTE | 2018-03-02 11:51 | PN- Housestaff ---
Mya ESCAMILLA,Kimberly 03/02/18 1151: Subjective Follow-up For: PNEUMONIA QUESTIONABLE CHF Subjective: Patient continues to have a high oxygen requirement. The patient was given Lasix yesterday with only minimal increase in urine output. He denies any chest pain, nausea, vomiting, fever, abdominal pain, diarrhea. He has waxing and waning confusion. He continues to not be able to bring up mucus. Review of Systems Constitutional: Reports: no symptoms. Cardiovascular: Reports: no symptoms. Respiratory: Reports: cough, short of breath, sputum production. Gastrointestinal: Reports: no symptoms. Genitourinary: Reports: no symptoms. Musculoskeletal: Reports: no symptoms. Skin: Reports: no symptoms. Neurological/Psychological: Reports: no symptoms. Objective Last 24 Hrs of Vital Signs/I&O Vital Signs Date Time Temp Pulse Resp B/P B/P Pulse O2 O2 Flow FiO2 Mean Ox Delivery Rate 03/02 1431 98.9 79 20 140/60 95 Nasal 6.0L Cannula 03/02 0901 93 Nasal 5.0L Cannula 03/02 0824 85 130/64 03/02 0800 Nasal 6.0L Cannula 03/02 0523 97.4 85 22 130/64 92 Nasal 6.0L Cannula 03/02 0341 92 Nasal 6.0L Cannula 03/02 0000 Nasal 6.0L Cannula 03/01 2205 96.5 85 20 132/70 91 Nasal 6.0L Cannula 03/01 1920 92 Nasal 5.0L Cannula Intake & Output 03/02 1600 03/02 0800 03/02 0000 Intake Total 610 360 830 Output Total 50 500 Balance 560 360 330 Intake, IV 250 130 Intake, Oral 360 360 700 Number 0 Bowel Movements Output, Urine 50 500 Patient 213 lb Weight Physical Exam General Appearance: Alert, Cooperative, No Acute Distress Skin: No Rashes, No Breakdown, No Significant Lesion Cardiovascular: Regular Rate Lungs: Clear to Auscultation, Normal Air Movement Abdomen: Normal Bowel Sounds, Soft, No Tenderness Extremities: No Clubbing, No Cyanosis, No Edema Current Medications: Current Medications Sig/Akila Start time Last Medication Dose Route Stop Time Status Admin Acetaminophen 1,000 MG Q12P PRN 03/01 0815 AC N/A 1 UNIT IV Albuterol Sulfate 3 ML BID 03/01 2100 AC 03/02 INH 0900 Amoxicillin/ 875 MG Q12 03/02 2100 AC Clavulanate Potassium PO Ampicillin 1,000 MG Q6 03/02 1800 CAN Sodium Chloride 100 ML IV Azithromycin 500 MG DAILY 03/03 0900 AC Sodium Chloride 250 ML IV Ceftazidime 1,000 MG IQ8 02/26 2230 DC 03/02 IV 0824 Doxazosin Mesylate 2 MG DAILY 02/28 0900 AC 03/02 PO 0824 Finasteride 5 MG DAILY 02/27 0900 AC 03/02 PO 0824 Furosemide 40 MG DAILY 03/02 0900 AC 03/02 IV 0824 Guaifenesin 10 ML Q6P PRN 03/02 1715 AC PO Heparin Sodium 5,000 UNIT Q8 02/28 1411 AC 03/02 (Porcine) SC 1356 Metoprolol Succinate 50 MG DAILY 02/27 0900 AC 03/02 PO 0824 Omeprazole 40 MG DAILY AC 02/27 0700 AC 03/02 PO 0551 Tiotropium [place] 1 PUF DAILY 02/27 0911 AC 03/02 INH 0825 Vancomycin HCl 1,000 MG BID 02/26 2230 DC 03/02 Sodium Chloride 250 ML IV 0824 Last 24 Hrs of Lab/Yang Results Last 24 Hrs of Labs/Mics: Laboratory Tests 03/02/18 0604: Anion Gap 10, Estimated GFR > 60, BUN/Creatinine Ratio 13.3, Troponin I < 0.01 Assessment/Plan Assessment: 87 yo M with h/o previous CVA, vascular dementia, CAD, HTN, CKD, chronic anemia, colon cancer s/p resection, lung cancer untreated, recently admitted (January 2018 ) for upper GI bleed noted to have a GE junction tear vs healing ulcer, was brought in from [facility] for worsening cough, dyspnea, tachypnea and hypoxia requiring O2 supplementation of 5 L, not usually on home oxygen.. Leukocytosis. CXR: left lower lobe pulmonary opacity. 1. Acute Hypoxemic resp failure likely 2/2 left lower lobe PNA: Treating as HCAP with Vanco/Ceftaz but now switching to ampicillin and azithro as mrsa nares negative, given recent inpatient hospitalization. Follow BC and sputum cultures. Patient was previously treated from February 17 to the on Ceftin 500 twice a day and doxycycline 100 twice a day. He was septic at the time of admission with chest x-ray showing left lower lobe opacity. Patient passed MBS swallow eval. Supplemental O2 taper as needed. CXR today showed increasing interstitial markings from previous scan. This is suggestive of CHF component. We will order an echo and start daily IV 40mg lasix. We ordered chest PT, mucomyst INH, and deep suction. We will ambulate the patient with physical therapy so that we don't compound his lung issues with deconditioning. Repeat CXR tomorrow as oxygen requirement is rising. we did ekg and trops today both sets negative for acs. patient continues to be guarded with poor status. 2. BPH. Cont home meds. 3. GERD. Protonix as prescribed. 4. Recent GI bleed: Patient was seen by Dr. Bryant for EGD on his last admission in January. No active bleed was found. Repeat CBC in 48 hours to ensure that his hemoglobin level is stable. NPO DNR/DNI Lovenox for DVT ppx. Problem List: 1. Pneumonia Pain Ratin Pain Location: na Pain Goal: Remain pain free Pain Plan: na Tomorrow's Labs & Rationales: monica Gardner MD,Tia 03/02/18 1258: Attending MD Review Statement Attending Statement Attending MD Statement: examined this patient, discuss w/resident/PA/BEAUTY OPERATOR, agreed w/resident/PA/BEAUTY OPERATOR, reviewed EMR data (avail), discussed with nursing, discussed with case mgmt, amended to note Attending Assessment/Plan: Patient seen and examined. Nursing staff reports he was agitated overnight requiring redirection. This morning he is alert. He was not agitated when we evaluated him. He follows simple commands. He does not appear to be respiratory distress. Patient continues to have high oxygen requirement. He is on 5-6 L of oxygen.Chest x-ray yesterday showed interval increase in interstitial prominence Which may reflect developing interstitial edema. He was started on Lasix 40 mg IV daily yesterday. He has had no significant weight loss yet. Urine output was not accurately recorded. On examination he continues to have audible rhonchorous breath sounds. He is not in respiratory distress. He has no peripheral edema. Problems: 1. Acute hypoxic respiratory failure. Likely combination of pneumonia and pulmonary congestion. 2. Left lower lobe pneumonia with concerns for aspiration and gram-negative pathogens. 3. Dementia 4. History of lung cancer. 5. History of colon cancer status post resection. 6. Coronary artery disease 7. History of stroke 8. Chronic anemia Plan: -Patient is afebrile hemodynamically stable. No leukocytosis on labs. De- escalate antibiotic therapy. DC vancomycin and ceftaz. Begin patient on amoxicillin 875 mg twice daily and azithromycin. Complete 7 days of antibiotic therapy including his intravenous antibiotics. -Continue diuresis with Lasix. Follow-up echocardiogram. Maintain aspiration precautions. -Physical therapy consultation to mobilize patient. -Repeat serum chemistry and CBC in a.m. if there is a change in his clinical status.
[2018-03-02 14:31] VITALS: BP 140/60
[2018-03-02 22:44] VITALS: BP 143/73
[2018-03-03 06:03] VITALS: BP 134/62
--- NOTE | 2018-03-03 07:40 | PN- Housestaff ---
Mya ESCAMILLA,Kimberly 03/03/18 0739: Subjective Follow-up For: Pneumonia Subjective: Patient seen and examined. He states that he feels the same as yesterday but this time is able to produce sputum on cough. He is on 6 L of oxygen and saturating 91%. He still has audible crackles without need for auscultation. Review of Systems Constitutional: Reports: no symptoms. EENTM: Reports: no symptoms. Respiratory: Reports: cough, short of breath, sputum production. Gastrointestinal: Reports: no symptoms. Genitourinary: Reports: no symptoms. Musculoskeletal: Reports: no symptoms. Skin: Reports: no symptoms. Objective Last 24 Hrs of Vital Signs/I&O Vital Signs Date Time Temp Pulse Resp B/P B/P Pulse O2 O2 Flow FiO2 Mean Ox Delivery Rate 03/03 1351 98.0 86 20 128/60 92 Nasal 6.0L Cannula 03/03 0900 67 128/64 03/03 0852 93 Nasal 5.0L Cannula 03/03 0800 Nasal 6.0L Cannula 03/03 0603 99.0 86 24 134/62 91 Nasal 6.0L Cannula 03/03 0000 Nasal 6.0L Cannula 03/02 2244 98.3 89 20 143/73 93 03/02 1930 93 Nasal 5.0L Cannula 03/02 1600 95 Nasal 6.0L Cannula Intake & Output 03/03 1600 03/03 0800 03/03 0000 Intake Total 750 360 240 Output Total Balance 750 360 240 Intake, IV 30 Intake, Oral 720 360 240 Patient 212 lb Weight Physical Exam General Appearance: Alert, Cooperative, No Acute Distress Skin: No Rashes, No Breakdown HEENT: Atraumatic, EOMI, Mucous Membr. moist/pink Cardiovascular: Regular Rate Lungs: scattered rales and crackles slightly better from yesterday. Abdomen: Normal Bowel Sounds, Soft, No Tenderness Neurological: Normal Speech Current Medications: Current Medications Sig/Akila Start time Last Medication Dose Route Stop Time Status Admin Acetaminophen 1,000 MG Q12P PRN 03/01 0815 AC N/A 1 UNIT IV Albuterol Sulfate 3 ML BID 03/01 2100 AC 03/03 INH 0821 Amoxicillin/ 875 MG Q12 03/02 2100 AC 03/03 Clavulanate Potassium PO 1254 Azithromycin 250 MG DAILY 03/03 09 AC 03/03 PO 1254 Azithromycin 500 MG DAILY 03/03 0900 DC Sodium Chloride 250 ML IV Doxazosin Mesylate 2 MG DAILY 02/28 0900 AC 03/03 PO 0859 Finasteride 5 MG DAILY 02/27 09 AC 03/03 PO 0859 Furosemide 40 MG DAILY 03/02 0900 AC 03/03 IV 0901 Guaifenesin 10 ML Q6P PRN 03/02 1715 AC PO Heparin Sodium 5,000 UNIT Q8 02/28 1411 AC 03/03 (Porcine) SC 1258 Metoprolol Succinate 50 MG DAILY 02/27 09 AC 03/03 PO 0900 Omeprazole 40 MG DAILY AC 02/27 0700 AC 03/03 PO 0610 Tiotropium [place] 1 PUF DAILY 02/27 0911 AC 03/03 INH 0901 Last 24 Hrs of Lab/Yang Results Last 24 Hrs of Labs/Mics: Laboratory Tests 03/03/18 1420: Anion Gap 12, Estimated GFR > 60, BUN/Creatinine Ratio 12.0, D-Dimer High Sensitivty 692 H, CBC w Diff NO MAN DIFF REQ, RBC 3.25 L, MCV 89.1, MCH 29.6, MCHC 33.2, RDW 17.9 H, MPV 6.2 L, Gran % 71.5, Lymphocytes % 20.9, Monocytes % 5.8, Eosinophils % 1.4, Basophils % 0.4, Absolute Granulocytes 6.5, Absolute Lymphocytes 1.9, Absolute Monocytes 0.5, Absolute Eosinophils 0.1, Absolute Basophils 0 Assessment/Plan Assessment: 87 yo M with h/o previous CVA, vascular dementia, CAD, HTN, CKD, chronic anemia, colon cancer s/p resection, lung cancer untreated, recently admitted (January 2018 ) for upper GI bleed noted to have a GE junction tear vs healing ulcer, was brought in from [facility] for worsening cough, dyspnea, tachypnea and hypoxia requiring O2 supplementation of 5 L, not usually on home oxygen.. Leukocytosis. CXR: left lower lobe pulmonary opacity. 1. Acute Hypoxemic resp failure likely 2/2 left lower lobe PNA: Treating as HCAP with Vanco/Ceftaz but now switching to ampicillin and azithro as mrsa nares negative, given recent inpatient hospitalization. Follow BC and sputum cultures. Patient was previously treated from February 17 to the on Ceftin 500 twice a day and doxycycline 100 twice a day. He was septic at the time of admission with chest x-ray showing left lower lobe opacity. Patient passed MBS swallow eval. Supplemental O2 taper as needed. CXR today showed increasing interstitial markings from previous scan. This is suggestive of CHF component. We will order an echo and start daily IV 40mg lasix. We ordered chest PT, mucomyst INH, and deep suction. We will ambulate the patient with physical therapy so that we don't compound his lung issues with deconditioning. Repeat CXR tomorrow as oxygen requirement is rising showed that lung markings are semi-resolving. we did ekg and trops yesterday both sets negative for acs. patient continues to be guarded with poor status. -Follow up an echocardiogram today -Pulmonary consultation with Dr. Vidales, he suggests Thompson as patient is not having good urine output with added Lasix. However it is noted by nursing the patient is incontinent so these values are likely erroneous. We will also do labs for today. Finally we'll do a d-dimer and if this is positive we'll consider a CTA versus CT scan. -The patient gets worse we will give another dose of 40 mg IV Lasix 2. BPH. Cont home meds. 3. GERD. Protonix as prescribed. 4. Recent GI bleed: Patient was seen by Dr. Bryant for EGD on his last admission in January. No active bleed was found. NPO DNR/DNI Lovenox for DVT ppx. Problem List: 1. Pneumonia Pain Ratin Pain Location: na Pain Goal: Remain pain free Pain Plan: na Tomorrow's Labs & Rationales: [facility] 03/03/18 1148: Attending MD Review Statement Attending Statement Attending MD Statement: examined this patient, discuss w/resident/PA/REELING MACHINE SETUP OPERATOR, agreed w/resident/PA/REELING MACHINE SETUP OPERATOR, reviewed EMR data (avail), discussed with nursing, discussed with case mgmt, amended to note Attending Assessment/Plan: Patient seen and examined. We noted patient to be calling for help when we went into the room to evaluate him lying comfortably in bed not in any acute distress. He was actually jovial. Nursing staff reports that that was his usual nature. They state he will call for help and will be was not in any distress. Sure enough after we had completed the rounds and left the room he started calling for help again. When I did approach him again and inquired why he was calling for help he implied that he was bored. I did speak with nursing staff to help provide a component for him for part of the day. He denies chest pain. He admits to shortness of breath on and off. He continues to have rhonchorous breath sounds with a productive cough. Examination he has no jugular venous distention. He has no significant peripheral edema. He has adequate entry bilaterally with diffuse rhonchorous breath sounds. Problems: 1. Acute hypoxic respiratory failure. 2. Left lower lobe pneumonia. 3. Dementia 4. History of lung cancer. 5. History of colon cancer status post resection. 6. Coronary artery disease 7. History of stroke 8. Chronic anemia Plan: -Due to ongoing need of high oxygen supplementation recommend checking CT scan. Will obtain d-dimer level. If levels are elevated will obtain CT angiogram to rule out pulmonary embolism and further evaluate pulmonary parenchyma. -Continue current course of antibiotic therapy with Augmentin and azithromycin. -Continue current diuresis with Lasix 40 mg IV daily. Despite IV diuresis he continues to be in a positive fluid balance however it does not appear that his urine output has been documented accurately. He has not had any significant weight loss. Follow results of echocardiogram and CT scan will consider increasing dose of his diuretic regimen.
--- NOTE | 2018-03-03 13:37 | RADIOLOGY REPORT ---
EXAMINATION: XR CHEST CLINICAL INFORMATION: Lung pathology. Abnormal chest radiograph. COMPARISON: CXR from 02/26/2018 and 03/01/2018. TECHNIQUE: 2 views of the chest were obtained. FINDINGS: Persistent, nonspecific consolidation in the medial left lower lobe; this could represent pneumonia or neoplastic disease. The aeration of the left lateral lung base is slightly improved compared to 02/26/2018. Currently, there is predominantly linear opacity in the lateral base, suggestive of atelectasis. The peribronchial interstitial thickening of 03/01/2018 has improved. Possible trace left pleural effusion. Cardiac silhouette is normal in size. Atherosclerotic calcification of the uncoiled aortic arch. Diffuse idiopathic skeletal hyperostosis as manifest by extensive flowing anterior ligament ossification of the thoracic spine. Displaced fractures of the right posterior fifth, sixth and seventh ribs remain unchanged compared to 02/26/2018. IMPRESSION: 1. Persistent consolidation in the medial left lower lobe. This could represent an area of organized inflammation/pneumonia, although neoplastic disease is not radiographically excluded. 2. Atelectasis in the left lateral lung base, as well -- improved compared to 02/26/2018. 3. Peribronchial interstitial thickening of 03/01/2018 has improved. This probably represents resolving interstitial edema. 4. Again noted are several displaced right rib fractures.
[2018-03-03 13:51] VITALS: BP 128/60
--- NOTE | 2018-03-03 14:06 | Cons- Pulmonary ---
General Information and HPI Consulting Request Date of Consult: 03/03/18 Requested By: med team History of Present Illness: Mr. Golden is a 87yo M w/ PMH of CVA/dementia, CAD/hypertension, internal/external hemorrhoids, osteoarthritis, spinal stenosis, colorectal cancer S/P resection, lung cancer, brought to ER for ECF concerning CXR finding of pneumonia, with symptomatic worsening coughing/dyspnea. Pt is a poor historian Since admission he has had worsening oxygen demand and hence this consult Has no fever Has bilateral pulm opacities in the cxr No other history or data available Patient was recently seen in for upper GI bleed episode, that EGD was done by Dr. Bryant, was no active bleeding findings, and recommended to postpone colonoscopy to outpatient settings. However patient was not follow- up by GI outpatient in the previous month, and no GI bleeding episode was notified per ECF. Has lung ca history and old records not available Allergies/Medications Allergies: Coded Allergies: Sulfa (Sulfonamide Antibiotics) (URTICARIA 01/08/18) gabapentin (ABD PAIN 01/08/18) lorazepam (From ATIVAN) (AGITATION 01/08/18) ropinirole (From REQUIP) (EMESIS 01/08/18) tizanidine (DIZZINESS/EMESIS 01/08/18) Home Med List: Acetaminophen (Acephen) 650 MG SUPP.RECT 1 SUPP MD Q6H PRN PAIN/TEMP>101 ( Reported) Acetaminophen (Pain Relief) 325 MG TABLET 2 TAB PO Q6H PRN PAIN/TEMP>101 ( Reported) Bisacodyl (Dulcolax) 10 MG SUPP.RECT 1 SUP RC DAILY PRN CONSTIPATION ( Reported) Finasteride 5 MG TABLET 1 TAB PO DAILY bph (Reported) Ipratropium/Albuterol Sulfate (Iprat-Albut 0.5-3(2.5) MG/3 Ml) 0.5 MG-3 MG (2.5 MG BASE)/3 ML AMPUL.NEB 1 VIAL INH Q4H RESP (Reported) Lactobacillus Acidophilus (Acidophilus) 1 EACH CAPSULE 2 CAP PO TID PROBIOTIC (Reported) Magnesium Hydroxide (Milk Of Magnesia) 400 MG/5 ML ORAL.SUSP 30 ML PO Q3D PRN CONSTIPATION (Reported) Metoprolol Succinate 50 MG TAB.ER.24H 1 TAB PO DAILY heart (Reported) Multivitamin (Daily Multiple Vitamin) 1 EACH TABLET 1 TAB PO DAILY supplement (Reported) Na Phos,M-B/Na Phos,Di-Ba (Fleet Enema) 19 GRAM-7 GRAM/118 ML ENEMA 1 E RC DAILY PRN CONSTIPATION (Reported) Naloxone HCl (Narcan) 4 MG/ACTUATION SPRAY 4 MG TAMIKA AD PRN OPIOID INDUCED RESP. DEPRESSIO (Reported) Ondansetron HCl 4 MG TABLET 1 TAB PO Q8H PRN N/V (Reported) Pantoprazole Sodium (Protonix) 40 MG TABLET.DR 1 TAB PO DAILY gerd (Reported) Terazosin HCl 2 MG CAPSULE 8 MG PO QHS BPH (Reported) Review of Systems Review of Systems Constitutional: Reports: see HPI. Past History Travel History Traveled to [place] past 21 day No Medical History Neurological: CVA, dementia Cardiovascular: CAD, hypertension, CVA Respiratory: pneumonia Gastrointestinal: internal and external hemorrhoids Renal: urinary incontinence, URINE RETENTION KIDNEY DISEASE Musculoskeletal: osteoarthritis, SPINAL STENOSIS Blood Disorders: anemia Cancer(s): colon/rectal cancer, lung cancer Surgical History Surgical History: colonic resection Family History Relations & Conditions If Any: Relation not specified for: *No pertinent family history Psychosocial History Where Do You Live? Care Home Facility Primary Language: Romanian Smoking Status: Unknown If Ever Smoked Living Will? yes Exam & Diagnostic Data Last 24 Hrs of Vital Signs/I&O Vital Signs Date Time Temp Pulse Resp B/P B/P Pulse O2 O2 Flow FiO2 Mean Ox Delivery Rate 03/03 1351 98.0 86 20 128/60 92 Nasal 6.0L Cannula 03/03 0900 67 128/64 03/03 0852 93 Nasal 5.0L Cannula 03/03 0800 Nasal 6.0L Cannula 03/03 0603 99.0 86 24 134/62 91 Nasal 6.0L Cannula 03/03 0000 Nasal 6.0L Cannula 03/02 2244 98.3 89 20 143/73 93 03/02 1930 93 Nasal 5.0L Cannula 03/02 1600 95 Nasal 6.0L Cannula 03/02 1431 98.9 79 20 140/60 95 Nasal 6.0L Cannula Intake & Output 03/03 1600 03/03 0800 06 0000 Intake Total 360 240 Output Total Balance 360 240 Intake, Oral 360 240 Patient 212 lb Weight Last 48 Hrs of Labs/Yang: Laboratory Tests 03/02/18 0604: Anion Gap 10, Estimated GFR > 60, BUN/Creatinine Ratio 13.3, Troponin I < 0.01 Microbiology 03/01 1626 UPPER RESP: Surveillance Culture - COMP Assessment/Plan Impression/Plan: General Appearance Alert, Cooperative, No Acute Distress Skin Temp/Moisture Exam: Warm/Dry Sepsis Skin Exam (color): Normal for Ethnicity HEENT Atraumatic, PERRLA, EOMI, Mucous Membr. moist/pink Cardiovascular Regular Rate, Normal S1, Normal S2 Lungs diffuse rhonchi Abdomen Normal Bowel Sounds, Soft, No Tenderness Neurological Normal Speech, Strength at 5/5 X4 Ext, Sensation Intact, Cranial Nerves 3-12 NL Extremities No Clubbing, No Cyanosis, No Edema CT abd IMPRESSION: 1. No CT evidence of acute intra-abdominal process. 2. Bilateral renal cysts, heavy vascular calcification of the aorta without aneurysm, advanced degenerative disease of the spine, anastomosis sigmoid-rectal junction, nonobstructive bowel gas pattern. 3. Left inguinal hernia containing fat only. 4. Large atelectasis consolidation LEFT lower lobe. DICTATED BY: Adarsh ESCAMILLA,Hadeer DATE/TIME DICTATED:01/08/181953 87 yo M with h/o previous CVA, vascular dementia, CAD, HTN, CKD, chronic anemia, colon cancer s/p resection, lung cancer untreated, recently admitted (January 2018 ) for upper GI bleed noted to have a GE junction tear vs healing ulcer, was brought in from [facility] for worsening cough, dyspnea, tachypnea and hypoxia requiring O2 supplementation. Issues Persistant LLL opacity with bilateral pulm infiltrates Prob worsening underlying lung cancer No sig aspiration noted Multiple collateral veins noted in the ant chest rule out svc obstruction/Has hoarse voice aswell REc Chest CT with IVC to eval for lung cancer Get DC summary from [facility] from [facility] Get records ie chest ct etc from [facility] Cont gentle diuresis COnt eduardo pulm care Cont abx for 5 days and dc Sputum culture ECHO Prog guarded Consult Acknowledgment - Thank you for your consult request.
[2018-03-03 15:35] LABS: ABSOLUTE BASOPHIL COUNT 0 /CUMM (0.0-0.2); ABSOLUTE EOSINOPHIL COUNT 0.1 /CUMM (0.0-0.7); ABSOLUTE GRANULOCYTE CT 6.5 /CUMM (1.4-6.5); ABSOLUTE LYMPH COUNT 1.9 /CUMM (1.2-3.4); ABSOLUTE MONOCYTE COUNT 0.5 /CUMM (0.10-0.60); BASOPHIL % 0.4 % (0.0-2.0); EOSINOPHIL % 1.4 % (0-5); GRANULOCYTE % 71.5 % (42.2-75.2); MEAN CORPUSCULAR HGB 29.6 PG (27.0-31.0); MEAN CORPUSCULAR HGB CONC 33.2 G/DL (33.0-37.0); MEAN CORPUSCULAR VOLUME 89.1 FL (80.0-94.0); MEAN PLATELET VOLUME 6.2 FL (7.4-10.4); PLATELET COUNT 482 /CUMM (130-400); RBC DISTRIBUTION WIDTH 17.9 % (11.5-14.5); RED BLOOD CELL CT 3.25 /CUMM (4.70-6.10); WHITE BLOOD CELL COUNT 9.1 /CUMM (4.8-10.8)
[2018-03-03 21:51] VITALS: BP 129/63
[2018-03-04 06:20] VITALS: BP 136/68
--- NOTE | 2018-03-04 08:09 | PN- Housestaff ---
Leonardo ESCAMILLA,Luz 03/04/18 0808: Subjective Follow-up For: Pneumonia Subjective: The patient's oxygen saturation continues to be high continues to have audible ronchi Review of Systems Constitutional: Reports: see HPI, chills. Objective Last 24 Hrs of Vital Signs/I&O Vital Signs Date Time Temp Pulse Resp B/P B/P Pulse O2 O2 Flow FiO2 Mean Ox Delivery Rate 03/04 1855 94 Nasal 7.0L Cannula 03/04 1400 97.9 85 22 130/70 94 03/04 0945 93 Nasal 8L Cannula 03/04 0919 138/72 03/04 0800 93 Nasal 8L Cannula 03/04 0620 98.6 84 20 136/68 94 Nasal 8L Cannula 03/04 0302 88 Nasal 6.0L Cannula 03/04 0000 94 Nasal 6.0L Cannula 03/03 2151 98.5 86 18 129/63 94 Intake & Output 03/04 1600 03/04 0800 03/04 0000 Intake Total 760 600 Output Total Balance 760 600 Intake, Oral 760 600 Number 0 Bowel Movements Patient 211 lb Weight Weight Bed scale Measurement Method Physical Exam General Appearance: No Acute Distress Lungs: Clear to Auscultation Abdomen: Soft Current Medications: Current Medications Sig/Akila Start time Last Medication Dose Route Stop Time Status Admin Acetaminophen 1,000 MG Q12P PRN 03/01 0815 AC N/A 1 UNIT IV Albuterol Sulfate 3 ML BID 03/01 2100 AC 03/04 INH 1855 Amoxicillin/ 875 MG Q12 03/02 2100 AC 03/04 Clavulanate Potassium PO 0919 Azithromycin 250 MG DAILY 03/03 0927 AC 03/04 PO 0916 Doxazosin Mesylate 2 MG DAILY 02/28 09 AC 03/04 PO 0919 Finasteride 5 MG DAILY 02/27 0900 AC 03/04 PO 0919 Furosemide 40 MG DAILY 03/02 0900 AC 03/04 IV 0916 Guaifenesin 10 ML Q6P PRN 03/02 1715 AC PO Heparin Sodium 5,000 UNIT Q8 02/28 1411 AC 03/04 (Porcine) SC 1324 Methylprednisolone 40 MG Q12 03/04 1337 AC 03/04 IV 03/04 2101 1442 Metoprolol Succinate 50 MG DAILY 02/27 09 AC 03/04 PO 0919 Omeprazole 40 MG DAILY AC 02/27 0700 AC 03/04 PO 0653 Tiotropium [place] 1 PUF DAILY 02/27 0911 AC 03/04 INH 1007 Last 24 Hrs of Lab/Yang Results Last 24 Hrs of Labs/Mics: Microbiology 03/03 2341 LOWER RESP: Respiratory Culture - CAN Cancelled: SPECIMEN NOT RECEIVED IN LABORATORY 03/03 2341 LOWER RESP: Gram Stain - CAN Cancelled: SPECIMEN NOT RECEIVED IN LABORATORY Assessment/Plan Assessment: 87 yo M with h/o previous CVA, vascular dementia, CAD, HTN, CKD, chronic anemia, colon cancer s/p resection, lung cancer untreated, recently admitted (January 2018 ) for upper GI bleed noted to have a GE junction tear vs healing ulcer, was brought in from [facility] for worsening cough, dyspnea, tachypnea and hypoxia requiring O2 supplementation of 5 L, not usually on home oxygen.. Leukocytosis. CXR: left lower lobe pulmonary opacity. 1. Acute Hypoxemic resp failure likely 2/2 left lower lobe PNA: -Currently on azithromycin and Augmentin -Will get a CT chest with IV contrast -Continue current diuresis with Lasix 40 mg IV daily. -Echocardiogram -Oxygen supplementation 2. BPH. Cont home meds. 3. GERD. Protonix as prescribed. 4. Recent GI bleed: Patient was seen by Dr. Bryant for EGD on his last admission in January. No active bleed was found. Problem List: 1. Pneumonia Pain Ratin Pain Location: n/a Pain Goal: Pain 4 or less Pain Plan: prn Tomorrow's Labs & Rationales: none Karlos Fuentes MD 03/04/18 0933: Attending MD Review Statement Attending Statement Attending Statement: examined this patient, discuss w/resident/PA/CHIEF PASSENGER SHIP STEWARD/STEWARDESS, agreed w/resident/PA/CHIEF PASSENGER SHIP STEWARD/STEWARDESS, discussed with family, reviewed EMR data (avail), discussed with nursing, discussed with case mgmt, reviewed images, amended to note Attending Assessment/Plan: Karlos He M.D. have examined this patient, reviewed available EMR data, personally reviewed images, discussed with resident/PA/CHIEF PASSENGER SHIP STEWARD/STEWARDESS, discussed management plan with housestaff and nursing staff, discussed managment plan all of healthcare providers, discussed management plan with patient and/or family, agreed with resident/PA/CHIEF PASSENGER SHIP STEWARD/STEWARDESS. The past history and parts of the chart have been autopopulated. Impression 87 year old man * persistent LLL opacification, bilateral infiltrates resulting in acute hypoxemic respiratory failure * history of colon and lung ca * hx of cva, hx of dementia Plan -DNR/DNI -add solumedrol 40mg iv q12h empirically -awaiting CT chest as ordered with IV contrast -f/u ECHO -f/u all cultures including sputum -currently on zithromax and augmentin, will tailor based on ct results and cultures -fio2 goal >88% DVT prophylaxis at all times
[2018-03-04 14:00] VITALS: BP 130/70
--- NOTE | 2018-03-04 17:26 | ECHOCARDIOGRAM REPORT ---
ABDIAS GUAJARDO Age: 87 : 1930 Gender: M Exam Date: 03/04/2018 11:56 Exam Location: [address] [place] [address] A Ht (in): 71 Wt (lb): 212 BSA: 2.22 BP: 148 / 74 Ordering Physician: Kimberly Roque MD Referring Physician: Kimberly Roque MD Technologist: Trudy Gonzáles [facility] Room Number: 221-1 Indications: Rhythm: Sinus Technical Quality: Fair, Technically difficult study FINDINGS Left Ventricle Normal size left ventricle. Normal left ventricular wall motion. No obvious regional wall motion abnormalities. Normal left ventricular ejection fraction estimated at 55-60%. Right Ventricle Right ventricle not well visualized. Right Atrium Right atrium not well visualized, grossly normal. Left Atrium Normal left atrial size. Mitral Valve Mitral valve thickened. Mitral annular calcification. Aortic Valve Trileaflet aortic valve. Diffuse thickening (sclerosis) of the aortic valve cusps without reduced excursion. No aortic stenosis. No aortic regurgitation. Tricuspid Valve Tricuspid valve not well visualized. Pulmonic Valve Pulmonic valve not well visualized. Pericardium No pericardial effusion. Great Vessels Aortic root and proximal ascending aorta not well visualized, grossly normal. CONCLUSIONS 1. This was a technically difficult examination due to the patient's body habitus. 2. Mild aortic sclerosis is present with no significant valvular stenosis or insufficiency. 3. Mitral leaflet thickening is present with annular calcification and minimal mitral insufficiency. 4. There is no obvious pericardial fluid detected. 5. The left ventricular chamber size and systolic function appear normal. There are no obvious resting wall motion abnormalities. However this was a technically difficult and limited study. 6. Right heart chambers and valvular structures were not well visualized anatomically. The right ventricular systolic pressure cannot be assessed on this study. 7. left Ventricular diastolic dysfunction is present. Davin Adam M.D. (Electronically Signed) Final Date: 04 March 2018 17:26 MEASUREMENTS (Male / Female) Normal Values 2D ECHO LV Diastolic Diameter PLAX 3.4 cm 4.2 - 5.9 / 3.9 - 5.3 cm LV Systolic Diameter PLAX 2.5 cm 2.1 - 4.0 cm LV Fractional Shortening PLAX 26.5 % 25 - 46 % LV Ejection Fraction 2D Teich 52.9 % IVS Diastolic Thickness 1.0 cm LVPW Diastolic Thickness 1.1 cm LV Relative Wall Thickness 0.6 LVOT Diameter 2.1 cm Aortic Root Diameter 3.5 cm LA Systolic Diameter LX 2.0 cm 3.0 - 4.0 / 2.7 - 3.8 cm LA Volume 34.0 cm 18 - 58 / 22 - 52 cm DOPPLER AV Peak Velocity 132.0 cm/s AV Peak Gradient 7.0 mmHg LVOT Peak Velocity 97.7 cm/s LVOT Peak Gradient 3.8 mmHg AV Area Cont Eq pk 2.6 cm Mitral E Point Velocity 48.4 cm/s Mitral A Point Velocity 98.7 cm/s Mitral E to A Ratio 0.5 MV Deceleration Time 215.0 ms PV Peak Velocity 93.7 cm/s PV Peak Gradient 3.5 mmHg LV E' Lateral Velocity 8.8 cm/s Mitral E to LV E' Lateral Ratio 5.5 LV E' Septal Velocity 6.1 cm/s Mitral E to LV E' Septal Ratio 7.9
--- NOTE | 2018-03-04 18:51 | CT SCAN REPORT ---
EXAMINATION: CT CHEST WITH CONTRAST CLINICAL INFORMATION: Cough, dyspnea. COMPARISON: None TECHNIQUE: Multidetector volumetric CT imaging of the chest was obtained after the administration of 50 mL of Optiray 320 intravenous contrast without immediate adverse reactions. Axial MIP volume rendering provided. Sagittal and coronal reformatted images were obtained. DLP: 637 mGy-cm FINDINGS: AUTOMATION AND CONTROL ENGINEER: Elevated left hemidiaphragm. LUNGS: Is a dense left lower lobe consolidation with underlying left pleural effusion. There is loss of left lower lobe volume. The rest of the lungs are expanded with slight increased reticular interstitial markings throughout both lungs likely some chronic changes. Mild atelectatic changes are seen in lingula and right lower lobe posterior basal segment. MEDIASTINUM: The central trachea and the bronchi widely patent. The heart size and the great vessels are normal caliber. There is left coronary artery calcification. There is no pericardial effusion seen. PLEURA: There is small left pleural effusion and minimal right posterior pleural thickening. No calcified pleural plaques seen. AXILLA: No lymphadenopathy. UPPER ABDOMEN: Visualized liver, spleen, pancreas and bilateral adrenal glands unremarkable. There are bilateral renal cyst. OSSEOUS STRUCTURES: There is moderate ventral spondylosis upper and mid and lower dorsal spine. No lytic process seen. IMPRESSION: Left lower lobe consolidation with underlying small left pleural effusion. Tiny right pleural effusion or pleural thickening with minimal compressive atelectasis or dependent consolidation right lower lobe. Atelectatic changes or scarring in the lingula.
[2018-03-04 23:02] VITALS: BP 140/74
[2018-03-05 06:20] VITALS: BP 140/77
--- NOTE | 2018-03-05 08:27 | PN- Housestaff ---
See Addendum Batsheva Rodriguez 03/05/18 0827: Subjective Follow-up For: Dyspnea/pneumonia Subjective: Patient is seen and examined. He feels much better today. His oxygen saturation has improved from 8 L to 6 L. He was given IV steroids yesterday, and chest CT was not significant for any pulmonary embolism. Review of Systems Constitutional: Reports: see HPI. Objective Last 24 Hrs of Vital Signs/I&O Vital Signs Date Time Temp Pulse Resp B/P B/P Pulse O2 O2 Flow FiO2 Mean Ox Delivery Rate 03/05 0838 138/72 03/05 0800 98 Nasal 6.0L Cannula 03/05 0620 98.2 73 20 140/77 93 Nasal 6.0L Cannula 03/05 0000 95 Nasal 6.0L Cannula 03/04 2302 97.8 79 24 140/74 94 Nasal 6.0L Cannula 03/04 1855 94 Nasal 7.0L Cannula 03/04 1600 92 Nasal 8L Cannula 03/04 1400 97.9 85 22 130/70 94 Intake & Output 03/05 1600 03/05 0800 03/05 0000 Intake Total 600 Output Total Balance 600 Intake, Oral 600 Number 0 1 Bowel Movements Patient 91.682 kg Weight Weight Bed scale Measurement Method Physical Exam General Appearance: Alert, Oriented X3, Cooperative Skin: No Rashes HEENT: Atraumatic Neck: Supple Cardiovascular: Normal S1, Normal S2 Lungs: Clear to Auscultation, Normal Air Movement Abdomen: Normal Bowel Sounds, Soft, No Tenderness Extremities: No Edema Current Medications: Current Medications Sig/Akila Start time Last Medication Dose Route Stop Time Status Admin Acetaminophen 1,000 MG Q12P PRN 03/01 815 AC N/A 1 UNIT IV Albuterol Sulfate 3 ML BID 03/01 2100 AC 03/04 INH 1855 Amoxicillin/ 875 MG BID 03/04 2211 AC 03/05 Clavulanate Potassium PO 0839 Amoxicillin/ 875 MG Q12 03/02 2100 DC 03/04 Clavulanate Potassium PO 0919 Azithromycin 250 MG DAILY 03/03 927 AC 03/05 PO 0838 Doxazosin Mesylate 2 MG DAILY 02/28 900 AC 03/05 PO 0838 Finasteride 5 MG DAILY 02/27 900 AC 03/05 PO 0838 Furosemide 40 MG DAILY 03/02 900 AC 03/05 IV 0839 Guaifenesin 10 ML Q6P PRN 03/02 1715 AC PO Heparin Sodium 5,000 UNIT Q8 02/28 1411 AC 03/05 (Porcine) SC 0706 Methylprednisolone 40 MG Q12 03/04 1337 DC 03/04 IV 03/04 2101 2122 Metoprolol Succinate 50 MG DAILY 02/27 0900 AC 03/05 PO 0838 Omeprazole 40 MG DAILY AC 02/27 0700 AC 03/04 PO 0653 Ramelteon 8 MG .STK-MED ONE 03/05 0116 DC PO 03/05 0117 Ramelteon 8 MG ONCE ONE 03/04 2345 DC 03/05 PO 03/04 2346 0128 Tiotropium [place] 1 PUF DAILY 02/27 0911 AC 03/05 INH 0838 Assessment/Plan Assessment: 87 yo M with h/o previous CVA, vascular dementia, CAD, HTN, CKD, chronic anemia, colon cancer s/p resection, lung cancer untreated, recently admitted (January 2018 ) for upper GI bleed noted to have a GE junction tear vs healing ulcer, was brought in from [facility] for worsening cough, dyspnea, tachypnea and hypoxia requiring O2 supplementation of 5 L, not usually on home oxygen.. Leukocytosis. CXR: left lower lobe pulmonary opacity. 1. Acute Hypoxemic resp failure likely 2/2 left lower lobe PNA: Patient is currently on azithromycin and Augmentin CT chest with IV contrast was nonsignificant for any pulmonary embolism We'll continue the patient on IV steroids for today. Consider chest x-ray tomorrow to ensure resolution Continue current diuresis with Lasix 40 mg IV daily. 2. BPH. Cont home meds. 3. GERD. Protonix as prescribed. 4. Recent GI bleed: Patient was seen by Dr. Bryant for EGD on his last admission in January. No active bleed was found. Problem List: 1. Pneumonia Pain Ratin Pain Location: none Pain Goal: Pain 4 or less Pain Plan: tylenol prn for pain Tomorrow's Labs & Rationales: cbc, bep Karlos Fuentes MD 03/05/18 0945: Attending Review Statement Attending Statement Attending MD Statement: examined this patient, discuss w/resident/PA/OFFICE PROFESSIONALS, agreed w/resident/PA/OFFICE PROFESSIONALS, discussed with family, reviewed EMR data (avail), discussed with nursing, discussed with case mgmt, reviewed images, amended to note Attending Assessment/Plan: IKarlos M.D. have examined this patient, reviewed available EMR data, personally reviewed images, discussed with resident/PA/OFFICE PROFESSIONALS, discussed management plan with housestaff and nursing staff, discussed managment plan all of healthcare providers, discussed management plan with patient and/or family, agreed with resident/PA/OFFICE PROFESSIONALS. The past history and parts of the chart have been autopopulated. Impression 87 year old man * LLL dense infiltrate with small effusion, acute hypoxemic respiratory failure * history of colon and lung ca * hx of cva, hx of dementia Plan -DNR/DNI -continue solumedrol 40mg iv q12h empirically - feels better, o2 requirements reduced -will require f/u imaging to ensure resolution -f/u all cultures including sputum -currently on zithromax and augmentin, will tailor based on ct results and cultures - send sputum culture as he is brining up phlegm -fio2 goal >88% DVT prophylaxis at all times
[2018-03-05 15:02] VITALS: BP 130/70
[2018-03-05 22:10] VITALS: BP 122/55
[2018-03-06 06:20] VITALS: BP 135/74
--- NOTE | 2018-03-06 07:19 | PN- Housestaff ---
Mya ESCAMILLA,Kimberly 03/06/18 0719: Subjective Follow-up For: dyspnea pneumonia Subjective: patient sounds better upon entering the room ie no crackles heard without auscultation. patient is communicative with direction. Appropriate sometimes. he has less of a cough. Review of Systems Constitutional: Reports: no symptoms. EENTM: Reports: no symptoms. Cardiovascular: Reports: no symptoms. Respiratory: Reports: cough, short of breath. Gastrointestinal: Reports: no symptoms. Genitourinary: Reports: no symptoms. Musculoskeletal: Reports: no symptoms. Skin: Reports: no symptoms. Objective Last 24 Hrs of Vital Signs/I&O Vital Signs Date Time Temp Pulse Resp B/P B/P Pulse O2 O2 Flow FiO2 Mean Ox Delivery Rate 03/06 1840 95 Nasal 7.0L Cannula 03/06 1600 Nasal 8L Cannula 03/06 1446 98.4 81 18 130/69 96 Nasal Cannula 03/06 1035 92 Nasal 8L Cannula 03/06 1022 73 136/74 03/06 0800 Nasal 8L Cannula 03/06 0620 98.4 73 20 135/74 94 Nasal 6.0L Cannula 03/06 0000 Nasal 8L Cannula 03/05 2210 98.1 87 24 122/55 91 Nasal 8L Cannula Intake & Output 03/06 1600 04 0800 04 0000 Intake Total 222 211 7649 Output Total Balance 313 922 1544 Intake, Oral 274 181 3933 Number 2 0 Bowel Movements Patient 205 lb Weight Weight Bed scale Measurement Method Physical Exam General Appearance: Alert, Cooperative, No Acute Distress Skin: No Rashes, No Breakdown, No Significant Lesion Skin Temp/Moisture Exam: Warm/Dry Sepsis Skin Exam (color): Normal for Ethnicity Cardiovascular: Regular Rate, Normal S1, Normal S2, No Murmurs Lungs: mild crackles and wheezes Abdomen: Normal Bowel Sounds, Soft, No Tenderness Neurological: Normal Speech Extremities: No Clubbing, No Cyanosis, No Edema, Normal Pulses, No Tenderness/ Swelling Vascular: Normal Pulses, Pulses Symmetrical Current Medications: Current Medications Sig/Akila Start time Last Medication Dose Route Stop Time Status Admin Acetaminophen 1,000 MG Q12P PRN 03/01 0815 AC N/A 1 UNIT IV Albuterol Sulfate 3 ML BID 03/01 2100 AC 03/06 INH 1840 Amoxicillin/ 875 MG BID 03/04 2211 AC 03/06 Clavulanate Potassium PO 1941 Azithromycin 250 MG DAILY 03/03 0927 AC 03/06 PO 1021 Doxazosin Mesylate 2 MG DAILY 02/28 09 AC 03/06 PO 1022 Finasteride 5 MG DAILY 02/27 09 AC 03/06 PO 1022 Furosemide 40 MG DAILY 03/02 09 AC 03/06 IV 1021 Guaifenesin 10 ML Q6P PRN 03/02 1715 AC PO Heparin Sodium 5,000 UNIT Q8 02/28 1411 AC 03/06 (Porcine) SC 194 Metoprolol Succinate 50 MG DAILY 02/27 09 AC 03/06 PO 1022 Omeprazole 40 MG DAILY AC 02/27 0700 AC 03/04 PO 0653 Prednisone 40 MG DAILY 03/06 1453 AC 03/06 PO 1738 Tiotropium [place] 1 PUF DAILY 02/27 0911 AC 03/06 INH 1023 Last 24 Hrs of Lab/Yang Results Last 24 Hrs of Labs/Mics: Laboratory Tests 03/06/18 0610: Anion Gap 9, Estimated GFR > 60, BUN/Creatinine Ratio 20.0, CBC w Diff NO MAN DIFF REQ, RBC 3.25 L, MCV 89.0, MCH 29.8, MCHC 33.5, RDW 18.1 H, MPV 6.5 L, Gran % 68.4, Lymphocytes % 23.3, Monocytes % 7.2, Eosinophils % 0.8, Basophils % 0.3, Absolute Granulocytes 6.1, Absolute Lymphocytes 2.1, Absolute Monocytes 0.6 , Absolute Eosinophils 0.1, Absolute Basophils 0 Assessment/Plan Assessment: 87 yo M with h/o previous CVA, vascular dementia, CAD, HTN, CKD, chronic anemia, colon cancer s/p resection, lung cancer untreated, recently admitted (January 2018 ) for upper GI bleed noted to have a GE junction tear vs healing ulcer, was brought in from [facility] for worsening cough, dyspnea, tachypnea and hypoxia requiring O2 supplementation of 5 L --> 6L: --> 8L, not usually on home oxygen. Leukocytosis. CXR: left lower lobe pulmonary opacity. 1. Acute Hypoxemic resp failure likely 2/2 left lower lobe PNA: Patient is currently on azithromycin and Augmentin day 9 and will get one more day of antibiotics tomorrow follow up pulm reccs CT chest with IV contrast was negative for any pulmonary embolism Patient on IV steroids this weekend, continue with PO steroids today 40mg for 3 days 20mg for 3 days and then stop. Last cxr shows resolution. Continue current diuresis with Lasix 40 mg IV daily. of note, recent scan did not mention patient's left sided cancer, only the consolidation caused by the pneumonia. there is a chance this is acutally the lesion. we will obtain records from the [place] re his cancer. 2. BPH. Cont home meds. 3. GERD. Protonix as prescribed. 4. Recent GI bleed: Patient was seen by Dr. Bryant for EGD on his last admission in January. No active bleed was found. Problem List: 1. Pneumonia Pain Ratin Pain Location: na Pain Goal: Remain pain free Pain Plan: na Tomorrow's Labs & Rationales: monica Gardner MD,Tia 03/06/18 1311: Attending MD Review Statement Attending Statement Attending MD Statement: examined this patient, discuss w/resident/PA/GERIATRIC AIDE, agreed w/resident/PA/GERIATRIC AIDE, reviewed EMR data (avail), discussed with nursing, discussed with case mgmt, amended to note Attending Assessment/Plan: Patient seen and examined. No issues overnight reported by nursing staff. Remains afebrile and hemodynamically stable. Resting comfortably and not in any acute distress. He continues to require oxygen supplementation. Over the weekend oxygen requirement has gone up to 8 L of oxygen. It is noted that patient was not on oxygen prior to hospitalization. CT imaging shows evidence of left lower lobe consolidation and small left. Effusion as well as tiny right pleural effusion with minimal compressive atelectasis or dependent consolidation of the right lower lobe. is concerned that pulmonary malignancy was not identified on CT imaging left lower lobe opacity may indeed be a malignancy. This will need to be compared to previous imaging and diagnostic workup done at the [place] hospital. Patient remains alert and oriented 3. He jokes around repeatedly with his nurse. Patient is still rhonchorous bilaterally on examination although less so today. No jugular venous distention. No peripheral edema. Plan: -Continue antibiotic therapy as recommended by the pulmonology service. -Gradually weaning off steroid therapy. Start patient on prednisone 40 mg daily. Reduce by 20 mg every third day. -Recommend obtaining records of prior imaging and any biopsy from the [facility]. Also recommend obtaining fax number of his primary care provider and fax them over the results of CT imaging done here at [facility]. -Mobilize patient as tolerated. -Upon discharge patient will return to his half-way facility. We will continue to wean down oxygen requirement. So far he has not made significant improvement despite IV diuresis and intravenous steroid therapy. Recommend goals of care discussion with the family.
[2018-03-06 08:51] LABS: ABSOLUTE BASOPHIL COUNT 0 /CUMM (0.0-0.2); ABSOLUTE EOSINOPHIL COUNT 0.1 /CUMM (0.0-0.7); ABSOLUTE GRANULOCYTE CT 6.1 /CUMM (1.4-6.5); ABSOLUTE LYMPH COUNT 2.1 /CUMM (1.2-3.4); ABSOLUTE MONOCYTE COUNT 0.6 /CUMM (0.10-0.60); BASOPHIL % 0.3 % (0.0-2.0); EOSINOPHIL % 0.8 % (0-5); GRANULOCYTE % 68.4 % (42.2-75.2); HEMATOCRIT 28.9 % (42-52); MEAN CORPUSCULAR HGB 29.8 PG (27.0-31.0); MEAN CORPUSCULAR HGB CONC 33.5 G/DL (33.0-37.0); MEAN PLATELET VOLUME 6.5 FL (7.4-10.4); PLATELET COUNT 445 /CUMM (130-400); RBC DISTRIBUTION WIDTH 18.1 % (11.5-14.5); RED BLOOD CELL CT 3.25 /CUMM (4.70-6.10)
--- NOTE | 2018-03-06 12:52 | PN- Pulmonary ---
Subjective HPI/Critical Care Issues: Better Now on steroids improving slowly Objective Current Medications: Current Medications Sig/Akila Start time Last Medication Dose Route Stop Time Status Admin Acetaminophen 1,000 MG Q12P PRN 03/01 0815 AC N/A 1 UNIT IV Albuterol Sulfate 3 ML BID 03/01 2100 AC 03/06 INH 1034 Amoxicillin/ 875 MG BID 03/04 2211 AC 03/06 Clavulanate Potassium PO 1023 Azithromycin 250 MG DAILY 03/03 0927 AC 03/06 PO 1021 Doxazosin Mesylate 2 MG DAILY 02/28 0900 AC 03/06 PO 1022 Finasteride 5 MG DAILY 02/27 0900 AC 03/06 PO 1022 Furosemide 40 MG DAILY 03/02 0900 AC 03/06 IV 1021 Guaifenesin 10 ML Q6P PRN 03/02 1715 AC PO Heparin Sodium 5,000 UNIT Q8 02/28 1411 AC 03/06 (Porcine) SC 0532 Metoprolol Succinate 50 MG DAILY 02/27 09 AC 03/06 PO 1022 Omeprazole 40 MG DAILY AC 02/27 0700 AC 03/04 PO 0653 Tiotropium [place] 1 PUF DAILY 02/27 0911 AC 03/06 INH 1023 Vital Signs & I&O Last 24 Hrs of Vitals and I&O: Vital Signs Date Time Temp Pulse Resp B/P B/P Pulse O2 O2 Flow FiO2 Mean Ox Delivery Rate 03/06 1035 92 Nasal 8L Cannula 03/06 1022 73 136/74 03/06 0800 Nasal 8L Cannula 03/06 0620 98.4 73 20 135/74 94 Nasal 6.0L Cannula 03/06 0000 Nasal 8L Cannula 03/05 2210 98.1 87 24 122/55 91 Nasal 8L Cannula 03/05 1830 91 Nasal 6.0L Cannula 03/05 1600 92 Nasal 6.0L Cannula 03/05 1502 97.6 80 24 130/70 92 Intake & Output 03/06 1600 03/06 0800 03/06 0000 Intake Total 240 1000 Output Total Balance 240 1000 Intake, Oral 240 1000 Number 0 Bowel Movements Patient 205 lb Weight Weight Bed scale Measurement Method Laboratory Tests 03/06 03/05 0610 0600 Chemistry Sodium (137 - 145 mmol/L) 142 Cancelled Potassium (3.5 - 5.1 mmol/L) 4.0 Cancelled Chloride (98 - 107 mmol/L) 99 Cancelled Carbon Dioxide (22 - 30 mmol/L) 34 H Cancelled Anion Gap (5 - 16) 9 Cancelled BUN (9 - 20 mg/dL) 22 H Cancelled Creatinine (0.7 - 1.2 mg/dL) 1.1 Cancelled Estimated GFR (>60 ml/min) > 60 BUN/Creatinine Ratio (7 - 25 %) 20.0 Cancelled Hematology CBC w Diff NO MAN DIFF REQ Cancelled WBC (4.8 - 10.8 /CUMM) 9.0 Cancelled RBC (4.70 - 6.10 /CUMM) 3.25 L Cancelled Hgb (14.0 - 18.0 G/DL) 9.7 L Cancelled Hct (42 - 52 %) 28.9 L Cancelled MCV (80.0 - 94.0 FL) 89.0 Cancelled MCH (27.0 - 31.0 PG) 29.8 Cancelled MCHC (33.0 - 37.0 G/DL) 33.5 Cancelled RDW (11.5 - 14.5 %) 18.1 H Cancelled Plt Count (130 - 400 /CUMM) 445 H Cancelled MPV (7.4 - 10.4 FL) 6.5 L Cancelled Gran % (42.2 - 75.2 %) 68.4 Lymphocytes % (20.5 - 51.1 %) 23.3 Monocytes % (1.7 - 9.3 %) 7.2 Eosinophils % (0 - 5 %) 0.8 Basophils % (0.0 - 2.0 %) 0.3 Absolute Granulocytes (1.4 - 6.5 /CUMM) 6.1 Absolute Lymphocytes (1.2 - 3.4 /CUMM) 2.1 Absolute Monocytes (0.10 - 0.60 /CUMM) 0.6 Absolute Eosinophils (0.0 - 0.7 /CUMM) 0.1 Absolute Basophils (0.0 - 0.2 /CUMM) 0 Microbiology Date/Time Procedure - Status Source Growth 03/03 2341 Respiratory Culture - CAN LOWER RESP Cancelled: SPECIMEN NOT RECEIVED IN LABORATORY 03/03 2341 Gram Stain - CAN LOWER RESP Cancelled: SPECIMEN NOT RECEIVED IN LABORATORY Impression/Plan Impression/Plan Impression/Plan: General Appearance Alert, Cooperative, No Acute Distress Skin Temp/Moisture Exam: Warm/Dry Sepsis Skin Exam (color): Normal for Ethnicity HEENT Atraumatic, PERRLA, EOMI, Mucous Membr. moist/pink Cardiovascular Regular Rate, Normal S1, Normal S2 Lungs diffuse rhonchi Abdomen Normal Bowel Sounds, Soft, No Tenderness Neurological Normal Speech, Strength at 5/5 X4 Ext, Sensation Intact, Cranial Nerves 3-12 NL Extremities No Clubbing, No Cyanosis, No Edema CT abd IMPRESSION: 1. No CT evidence of acute intra-abdominal process. 2. Bilateral renal cysts, heavy vascular calcification of the aorta without aneurysm, advanced degenerative disease of the spine, anastomosis sigmoid-rectal junction, nonobstructive bowel gas pattern. 3. Left inguinal hernia containing fat only. 4. Large atelectasis consolidation LEFT lower lobe. DICTATED BY: Estela Altamirano MD DATE/TIME DICTATED:01/08/181953 PATIENT: ABDIAS GUAJARDO PRESENT AGE: 87 PATIENT ACCOUNT NO: [id number] : [birth year] LOCATION: 2NA ORDERING PHYSICIAN: Melissa Moy MD SERVICE DATE: 03/04/18- EXAM TYPE: CAT - CT CHEST W IV CONTRAST EXAMINATION: CT CHEST WITH CONTRAST CLINICAL INFORMATION: Cough, dyspnea. COMPARISON: None TECHNIQUE: Multidetector volumetric CT imaging of the chest was obtained after the administration of 50 mL of Optiray 320 intravenous contrast without immediate adverse reactions. Axial MIP volume rendering provided. Sagittal and coronal reformatted images were obtained. DLP: 637 mGy-cm FINDINGS: CIVIL RIGHTS REPRESENTATIVE: Elevated left hemidiaphragm. LUNGS: Is a dense left lower lobe consolidation with underlying left pleural effusion. There is loss of left lower lobe volume. The rest of the lungs are expanded with slight increased reticular interstitial markings throughout both lungs likely some chronic changes. Mild atelectatic changes are seen in lingula and right lower lobe posterior basal segment. MEDIASTINUM: The central trachea and the bronchi widely patent. The heart size and the great vessels are normal caliber. There is left coronary artery calcification. There is no pericardial effusion seen. PLEURA: There is small left pleural effusion and minimal right posterior pleural thickening. No calcified pleural plaques seen. AXILLA: No lymphadenopathy. UPPER ABDOMEN: Visualized liver, spleen, pancreas and bilateral adrenal glands unremarkable. There are bilateral renal cyst. OSSEOUS STRUCTURES: There is moderate ventral spondylosis upper and mid and lower dorsal spine. No lytic process seen. IMPRESSION: Left lower lobe consolidation with underlying small left pleural effusion. Tiny right pleural effusion or pleural thickening with minimal compressive atelectasis or dependent consolidation right lower lobe. Atelectatic changes or scarring in the lingula. DICTATED BY: Corby Brooks MD DATE/TIME DICTATED:03/04/181833 87 yo M with h/o previous CVA, vascular dementia, CAD, HTN, CKD, chronic anemia, colon cancer s/p resection, lung cancer untreated (per records from before), recently admitted (January 2018) for upper GI bleed noted to have a GE junction tear vs healing ulcer, was brought in from [facility] for worsening cough, dyspnea, tachypnea and hypoxia requiring O2 supplementation. Issues Persistant LLL opacity present alleast since january (need to get records from [facility]) No sig aspiration noted REc COnt abx azitro for total of 5 and augmentin for 7-10 days Wean steroids over two weeks KEep hob up Need old records (call [facility] and obtain if any bx was done) The left lower lobe opacity persists and this may be the lesion Stable
[2018-03-06 14:46] VITALS: BP 130/69
[2018-03-06 22:34] VITALS: BP 128/66
[2018-03-07 05:54] VITALS: BP 135/84
--- NOTE | 2018-03-07 08:33 | PN- Housestaff ---
Akhil ESCAMILLA,Howard 03/07/18 0833: Subjective Follow-up For: pneumonia hypoxemic respiratory failure reported LLL lung cancer Subjective: no new complaints afebrile persistent cough, on six liters supplemental oxygen Review of Systems Constitutional: Reports: see HPI. Objective Last 24 Hrs of Vital Signs/I&O Vital Signs Date Time Temp Pulse Resp B/P B/P Pulse O2 O2 Flow FiO2 Mean Ox Delivery Rate 03/07 1504 98.4 87 20 137/64 95 Nasal Cannula 03/07 0820 90 Nasal 6.0L Cannula 03/07 0554 97.6 83 22 135/84 93 Nasal 6.0L Cannula 03/07 0000 92 Nasal 6.0L Cannula 03/06 2234 98.8 96 20 128/66 92 03/06 1840 95 Nasal 7.0L Cannula Intake & Output 03/07 1600 03/07 0800 03/07 0000 Intake Total 700 130 Output Total Balance 700 130 Intake, IV 10 Intake, Oral 700 120 Number 1 Bowel Movements Patient 93.071 kg Weight Physical Exam General Appearance: Alert, Oriented X3, Cooperative, No Acute Distress Cardiovascular: Regular Rate, Normal S1, Normal S2, No Murmurs Lungs: diffuse rhonchi greatest LLL Abdomen: Normal Bowel Sounds, Soft, No Tenderness, No Masses Extremities: No Clubbing, No Cyanosis, No Edema, Normal Pulses Current Medications: Current Medications Sig/Akila Start time Last Medication Dose Route Stop Time Status Admin Acetaminophen 1,000 MG Q12P PRN 03/01 0815 AC N/A 1 UNIT IV Albuterol Sulfate 3 ML BID 03/01 2100 AC 03/07 INH 0831 Amoxicillin/ 875 MG BID 03/04 2211 AC 03/07 Clavulanate Potassium PO 0858 Azithromycin 250 MG DAILY 03/03 0927 DC 03/07 PO 0856 Doxazosin Mesylate 2 MG DAILY 02/28 09 AC 03/07 PO 0856 Finasteride 5 MG DAILY 02/27 09 AC 03/07 PO 0856 Furosemide 40 MG DAILY 03/02 09 AC 03/07 IV 0859 Guaifenesin 10 ML Q6P PRN 03/02 1715 AC PO Heparin Sodium 5,000 UNIT Q8 02/28 1411 AC 03/07 (Porcine) SC 1434 Metoprolol Succinate 50 MG DAILY 02/27 09 AC 03/07 PO 0856 Omeprazole 40 MG DAILY AC 02/27 0700 AC 03/04 PO 0653 Prednisone 40 MG DAILY 03/06 1453 03/07 PO 0856 Sodium Chloride 1,000 ML Q13H 03/07 1215 AC 03/07 IV 03/08 0114 1336 Tiotropium [place] 1 PUF DAILY 02/27 0911 03/07 INH 0906 Assessment/Plan Assessment: 87 year old male with h/o previous CVA, vascular dementia, CAD, HTN, CKD, chronic anemia, colon cancer s/p resection, lung cancer untreated, recently admitted (January 2018) for upper GI bleed noted to have a GE junction tear vs healing ulcer, was brought in from [facility] with worsening cough, dyspnea, and hypoxia with increased supplemental oxygen requirement. Acute Hypoxemic resp failure likely 2/2 left lower lobe PNA: Leukocytosis, cough and left lower lobe pulmonary opacity on imaging possibly post obstructive pneumonia with reported LLL malignancy and persistent opacity CTA negative for pulmonary emboli Pulmonology consulted Completed ten day course of antibiotics Taper PO steroids today 40mg for 3 days 20mg for 3 days and then stop. Patient's did not wish biopsy or management of presumed lung cancer dx'd @ [place] Palliative care consultation in the AM BPH: Continue finasteride GERD: PO PPI Regular diet DVT ppx-heparin subcutaneous DNR/DNI Palliative care consultation Problem List: 1. Pneumonia Pain Ratin Pain Location: n/a Pain Goal: Pain 4 or less Pain Plan: prn Tomorrow's Labs & Rationales: winifred Gardner MD,Tia 03/07/18 1432: Attending MD Review Statement Attending Statement Attending MD Statement: examined this patient, discuss w/resident/PA/DRY CELL SEALER, agreed w/resident/PA/DRY CELL SEALER, reviewed EMR data (avail), discussed with nursing, discussed with case mgmt, amended to note Attending Assessment/Plan: Patient seen and examined. No issues overnight reported by nursing staff. He moans when one is in the room. He is pleasant when we see him during rounds. He reports that he is lonely. denies chest pain or shortness of breath. Admits to mild cough. He still requiring 6 L of oxygen to maintain saturation. He is afebrile. He is hemodynamically stable. On examination he has rhonchorous breath sounds have improved significantly today. Patient was acute hypoxic respiratory failure appears to be secondary to pneumonia. He is on antibiotic therapy and remains clinically stable. He is afebrile. He has no leukocytosis on labs. He was started on systemic steroid therapy to help reduce inflammation related to bronchitis/COPD exacerbation. Unfortunately oxygenation status has not improved significantly. D-dimer was checked and is mildly elevated. Level is actually within normal limits when adjusted for age. Pulmonology service is recommending CT angiogram to rule out underlying pulmonary embolism as cause of his ongoing hypoxemia. According to the patient' s he has history of lung cancer. We have decided not to pursue further interventional treatment for this. CT imaging done here makes no mention of malignancy however left lower lobe consolidation may fact be malignancy and question. This may be contributing to his hypoxia and increasing his risk of pneumonia. So far he is clinically stable on antibiotic therapy and prednisone taper. He still requires 6 L of oxygen. Given his advanced age and comorbidities, aggressive medical management is unlikely to add any further quality. Recommend evaluation by the palliative care service to help his in decision-making regarding goals of care.
--- NOTE | 2018-03-07 10:29 | Discharge Summary ---
Visit Information Visit Dates Admission Date: 02/26/18 Discharge Date: 03/08/18 Hospital Course Course Attending Physician: Tia Gardner MD Primary Care Physician: Carlos ESCAMILLA,[facility] Hospital Course: 87 yo M with h/o previous CVA, vascular dementia, CAD, HTN, CKD, chronic anemia, colon cancer s/p resection, lung cancer untreated, recently admitted (January 2018 ) for upper GI bleed noted to have a GE junction tear vs healing ulcer, was brought in from [facility] for worsening cough, dyspnea, tachypnea and hypoxia requiring O2 supplementation of 5 L --> 6L: --> 8L, not usually on home oxygen. On admission: Vitals: Tmax 100.1, HR 80-90's, BP 144/64, sats 95% on 4L. Exam: Awake, alert, confused. Dry mucosa, Chest left sided rhonchi++, with bibasilar crackles. LE: trace edema. Labs: WBC 11.6, H/H 9.7/29.8 (stable baseline), Plt 535, lactic acid 1.2, trop neg, proBNP 2040. UA negative. CXR: left lower lobe pulmonary opacity. EKG: sinus tachycardia, LAD, Qtc 423. CXR: left lower lobe pulmonary opacity. Chest CT: Left lower lobe consolidation with underlying small left pleural effusion. Tiny right pleural effusion or pleural thickening with minimal compressive atelectasis or dependent consolidation right lower lobe. Atelectatic changes or scarring in the lingula. Patient was seen and treated for 1. Acute Hypoxemic resp failure likely 2/2 left lower lobe PNA: Patient got azithromycin and Augmentin for his left lower lobe pneumonia. Patient was seen by digital experience manager (Dr. Vidales) and started on IV steroids transitioned to by mouth PO steroids, plan is to taper over 2 weeks. 40 x 3 days , 30 x 3 days, 20 x 3 days, 10 x 3 days. Spoke to the patient's at length, he has left lung mass/cancer, they deferred biopsy considering his age and do not wish to pursue further treatment. Patient was kept on Guaifenesin. As inpatient he was continued on Lasix 40 IV daily but that did not really help. His echo from March 01 shows 55-60% EF. So lasix would not be continued. Patient will be discharged on a steroid taper of 40 x 1 (03/09/18), CTA did not reveal any evidence of pulmonary embolism. CAD/hypertension: Patient was continued on Metoprolol BPH. Continued on home meds. GERD. Protonix as prescribed. Recent GI bleed: Patient was seen by Dr. Bryant for EGD on his last admission in January. No active bleed was found. Allergies: Coded Allergies: Sulfa (Sulfonamide Antibiotics) (URTICARIA 01/08/18) gabapentin (ABD PAIN 01/08/18) lorazepam (From ATIVAN) (AGITATION 01/08/18) ropinirole (From REQUIP) (EMESIS 01/08/18) tizanidine (DIZZINESS/EMESIS 01/08/18) Disposition Summary Disposition Principal Diagnosis: Pneumonia Additional Diagnosis: as above Discharge Disposition: SNF Discharge Instructions General Discharge Information Code Status: Do Not Resucitate/Intubat Patient's Diet: regular diet Patient's Activity: as tolerated Follow-Up Instructions/Appts: please follow up with PCP upon discharge. Medications at Discharge Discharge Medications: Continue taking these medications: Metoprolol Succinate (Metoprolol Succinate) 50 MG TAB.ER.24H 1 Tablet ORAL DAILY Comments: Last Taken: 03/08/18 Time: 0835 Finasteride (Finasteride) 5 MG TABLET 1 Tablet ORAL DAILY Comments: Last Taken: 03/08/18 Time:0835 Multivitamin (Daily Multiple Vitamin) 1 EACH TABLET 1 Tablet ORAL DAILY Comments: Not administered in hospital Naloxone HCl (Narcan) 4 MG/ACTUATION SPRAY 4 Milligram In the nose As Directed as needed for OPIOID INDUCED RESP. DEPRESSIO Comments: NOT GIVEN Terazosin HCl (Terazosin HCl) 2 MG CAPSULE 8 Milligram ORAL TAKE AT BEDTIME Comments: NOT GIVEN Lactobacillus Acidophilus (Acidophilus) 1 EACH CAPSULE 2 Capsule ORAL THREE TIMES DAILY Comments: NOT GIVEN Ipratropium/Albuterol Sulfate (Iprat-Albut 0.5-3(2.5) MG/3 Ml) 0.5 MG-3 MG (2.5 MG BASE)/3 ML AMPUL.NEB 1 VIAL Inhale through mouth Q4H Comments: Last Taken:03/08/18 Time:0809 Acetaminophen (Acephen) 650 MG SUPP.RECT 1 SUPPOSITORY RECTALLY Q6H as needed for PAIN/TEMP>101 Comments: NOT GIVEN Acetaminophen (Pain Relief) 325 MG TABLET 2 Tablet ORAL Q6H as needed for PAIN/TEMP>101 Comments: NOT GIVEN Ondansetron HCl (Ondansetron HCl) 4 MG TABLET 1 Tablet ORAL Q8H as needed for N/V Comments: NOT GIVEN Bisacodyl (Dulcolax) 10 MG SUPP.RECT 1 Suppository RECTAL DAILY as needed for CONSTIPATION Comments: NOT GIVEN Na Phos,M-B/Na Phos,Di-Ba (Fleet Enema) 19 GRAM-7 GRAM/118 ML ENEMA 1 Enema RECTAL DAILY as needed for CONSTIPATION Comments: NOT GIVEN Magnesium Hydroxide (Milk Of Magnesia) 400 MG/5 ML ORAL.SUSP 30 Milliliters ORAL Every 3 days as needed for CONSTIPATION Comments: NOT GIVEN Pantoprazole Sodium (Protonix) 40 MG TABLET.DR 1 Tablet ORAL DAILY Comments: PRILOSEC ADMINISTERED Last Taken:03/04/18 Time:0700 Start taking the following new medications: Prednisone (Prednisone) 10 MG TAB.DS.PK 1 Tablet ORAL DAILY Qty = 26 No Refills Instructions: PREDNISONE TAPER OVER 2 WEEKS. 40 DAILY X 2 DAYS 30 DAILY X 3 DAYS 20 DAILY X 3 DAYS 10 DAILY X 3 DAYS THEN STOP Comments: Last Taken:03/08/18 Time:0825 Copies To: Flash ESCAMILLA,Naga Gaspar; Carlos ESCAMILLA,Vivian Attending MD Review Statement Documenting Attending: Tia Gardner MD Other Findings: Medically stable to be discharged.
--- NOTE | 2018-03-07 12:28 | PN- Pulmonary ---
Subjective HPI/Critical Care Issues: Little better Unable to give eduardo history as he has occ confusion Objective Current Medications: Current Medications Sig/Akila Start time Last Medication Dose Route Stop Time Status Admin Acetaminophen 1,000 MG Q12P PRN 03/01 0815 AC N/A 1 UNIT IV Albuterol Sulfate 3 ML BID 03/01 2100 AC 03/07 INH 0831 Amoxicillin/ 875 MG BID 03/04 2211 AC 03/07 Clavulanate Potassium PO 0858 Azithromycin 250 MG DAILY 03/03 0927 DC 03/07 PO 0856 Doxazosin Mesylate 2 MG DAILY 02/28 0900 AC 03/07 PO 0856 Finasteride 5 MG DAILY 02/27 0900 AC 03/07 PO 0856 Furosemide 40 MG DAILY 03/02 0900 AC 03/07 IV 0859 Guaifenesin 10 ML Q6P PRN 03/02 1715 AC PO Heparin Sodium 5,000 UNIT Q8 02/28 1411 AC 03/07 (Porcine) SC 0600 Metoprolol Succinate 50 MG DAILY 02/27 0900 AC 03/07 PO 0856 Omeprazole 40 MG DAILY AC 02/27 0700 AC 03/04 PO 0653 Prednisone 40 MG DAILY 03/06 1453 AC 03/07 PO 0856 Sodium Chloride 1,000 ML Q13H 03/07 1215 AC IV 03/08 0114 Tiotropium [place] 1 PUF DAILY 02/27 0911 AC 03/07 INH 0906 Vital Signs & I&O Last 24 Hrs of Vitals and I&O: Vital Signs Date Time Temp Pulse Resp B/P B/P Pulse O2 O2 Flow FiO2 Mean Ox Delivery Rate 03/07 0820 90 Nasal 6.0L Cannula 03/07 0554 97.6 83 22 135/84 93 Nasal 6.0L Cannula 03/07 0000 92 Nasal 6.0L Cannula 03/06 2234 98.8 96 20 128/66 92 03/06 1840 95 Nasal 7.0L Cannula 03/06 1600 Nasal 8L Cannula 03/06 1446 98.4 81 18 130/69 96 Nasal Cannula Intake & Output 03/07 1600 03/07 0800 06 0000 Intake Total 130 Output Total Balance 130 Intake, IV 10 Intake, Oral 120 Number 1 Bowel Movements Patient 205 lb Weight Impression/Plan Impression/Plan Impression/Plan: General Appearance Alert, Cooperative, No Acute Distress Skin Temp/Moisture Exam: Warm/Dry Sepsis Skin Exam (color): Normal for Ethnicity HEENT Atraumatic, PERRLA, EOMI, Mucous Membr. moist/pink Cardiovascular Regular Rate, Normal S1, Normal S2 Lungs diffuse rhonchi Abdomen Normal Bowel Sounds, Soft, No Tenderness Neurological Normal Speech, Strength at 5/5 X4 Ext, Sensation Intact, Cranial Nerves 3-12 NL Extremities No Clubbing, No Cyanosis, No Edema CT abd IMPRESSION: 1. No CT evidence of acute intra-abdominal process. 2. Bilateral renal cysts, heavy vascular calcification of the aorta without aneurysm, advanced degenerative disease of the spine, anastomosis sigmoid-rectal junction, nonobstructive bowel gas pattern. 3. Left inguinal hernia containing fat only. 4. Large atelectasis consolidation LEFT lower lobe. DICTATED BY: Estela Altamirano MD DATE/TIME DICTATED:01/08/181953 PATIENT: ABDIAS GUAJARDO PRESENT AGE: 87 PATIENT ACCOUNT NO: [id number] : [birth year] LOCATION: 2NA ORDERING PHYSICIAN: eMlissa Moy MD SERVICE DATE: 03/04/18- EXAM TYPE: CAT - CT CHEST W IV CONTRAST EXAMINATION: CT CHEST WITH CONTRAST CLINICAL INFORMATION: Cough, dyspnea. COMPARISON: None TECHNIQUE: Multidetector volumetric CT imaging of the chest was obtained after the administration of 50 mL of Optiray 320 intravenous contrast without immediate adverse reactions. Axial MIP volume rendering provided. Sagittal and coronal reformatted images were obtained. DLP: 637 mGy-cm FINDINGS: MANAGER FILE: Elevated left hemidiaphragm. LUNGS: Is a dense left lower lobe consolidation with underlying left pleural effusion. There is loss of left lower lobe volume. The rest of the lungs are expanded with slight increased reticular interstitial markings throughout both lungs likely some chronic changes. Mild atelectatic changes are seen in lingula and right lower lobe posterior basal segment. MEDIASTINUM: The central trachea and the bronchi widely patent. The heart size and the great vessels are normal caliber. There is left coronary artery calcification. There is no pericardial effusion seen. PLEURA: There is small left pleural effusion and minimal right posterior pleural thickening. No calcified pleural plaques seen. AXILLA: No lymphadenopathy. UPPER ABDOMEN: Visualized liver, spleen, pancreas and bilateral adrenal glands unremarkable. There are bilateral renal cyst. OSSEOUS STRUCTURES: There is moderate ventral spondylosis upper and mid and lower dorsal spine. No lytic process seen. IMPRESSION: Left lower lobe consolidation with underlying small left pleural effusion. Tiny right pleural effusion or pleural thickening with minimal compressive atelectasis or dependent consolidation right lower lobe. Atelectatic changes or scarring in the lingula. DICTATED BY: Corby Brooks MD DATE/TIME DICTATED:03/04/181833 87 yo M with h/o previous CVA, vascular dementia, CAD, HTN, CKD, chronic anemia, colon cancer s/p resection, lung cancer untreated (per records from before), recently admitted (January 2018) for upper GI bleed noted to have a GE junction tear vs healing ulcer, was brought in from [facility] for worsening cough, dyspnea, tachypnea and hypoxia requiring O2 supplementation. Issues Persistant LLL opacity present alleast since january (need to get records from [facility]) Now with persistant hypoxic despite abx and steroids - with elevated d dimer will need to rule out pe No sig aspiration noted REc COnt abx azitro for total of 5 and augmentin for 7-10 days Normal saline bolus 250 followed by cta chest to rule out pe and cont ivf for 10 hrs 75 cc Wean steroids over 10 days KEep hob up Need old records (call [facility] and obtain if any bx was done) The left lower lobe opacity persists and this may be the lesion Stable
[2018-03-07] MEDS ORDERED: PREDNISONE10 M1 PO (13:29)
[2018-03-07] MEDS ORDERED: LASIX20 M1 PO (13:29)
[2018-03-07] MEDS ORDERED: AUGMENTIN 875-1 EACH PO (13:34)
[2018-03-07 15:04] VITALS: BP 137/64
--- NOTE | 2018-03-07 15:15 | CT SCAN REPORT ---
EXAMINATION: CT ANGIOGRAM OF THE CHEST WITH AND WITHOUT CONTRAST (CT PULMONARY ANGIOGRAM FOR PE) CLINICAL INFORMATION: Reason for Study:
Presumptive Dx: PULMONARY EMBOLISM
Signs Symptoms: HYPOXEMIA
COMPARISON: None TECHNIQUE: Prior to contrast administration, noncontrast localization images were obtained. Subsequently, multidetector volumetric imaging was performed from the thoracic inlet to below the diaphragms following the administration of 94 mL Optiray 320 intravenous contrast. No contrast reaction reported. Sagittal, coronal, and MIP oblique sagittal reformatted images were obtained on the CT workstation, uploaded to PACS, and reviewed. Total exam dose-length product 530.90 mGy-cm. FINDINGS: QUALITY OF STUDY/CONTRAST BOLUS: Satisfactory PULMONARY ARTERIES: No central or segmental pulmonary emboli. THORACIC AORTA: No aneurysm or dissection. There is moderate atherosclerotic change. LUNG: There is bilateral basilar atelectasis, left greater than right. No focal nodules or masses. No generalized increase is seen in peripheral interlobular septal markings. No bleb or bullous formation is seen. The central airways appear patent. PLEURA: There is a small left pleural effusion. No right pleural effusion is seen. There is no pneumothorax. MEDIASTINUM: Normal heart size. No pericardial effusion. No hilar or mediastinal lymphadenopathy. No evidence of septal bowing or right heart strain. There are coronary atherosclerotic allegations. CHEST WALL/AXILLA: No axillary or internal mammary lymphadenopathy. OSSEOUS STRUCTURES: There is multi-level marked thoracic spondylosis, with appearance suggesting possible DISH (diffuse idiopathic skeletal hyperostosis). No acute or aggressive osseous abnormality is seen. UPPER ABDOMEN: There are incompletely included bilateral renal low-attenuation probable cysts. No reflux of contrast into the hepatic veins to suggest elevated right heart pressures. IMPRESSION: 1. No pulmonary embolus or thoracic aneurysm or dissection is seen. 2. There is a small right pleural effusion. There is bibasilar airspace disease, likely atelectasis, greater on the left than on the right. VTE: negative
[2018-03-07 22:40] VITALS: BP 130/80
[2018-03-08 05:41] VITALS: BP 135/77
--- NOTE | 2018-03-08 07:02 | PN- Housestaff ---
Akhil ESCAMILLA,Howard 03/08/18 0701: Subjective Follow-up For: pneumonia hypoxemic respiratory failure reported LLL lung cancer Subjective: no complaints this morning Review of Systems Constitutional: Reports: see HPI. Objective Last 24 Hrs of Vital Signs/I&O Vital Signs Date Time Temp Pulse Resp B/P B/P Pulse O2 O2 Flow FiO2 Mean Ox Delivery Rate 03/08 1130 98.4 78 22 120/58 03/08 0835 120/58 03/08 0800 95 Nasal 6.0L Cannula 03/08 0541 98.4 78 22 135/77 95 Nasal 6.0L Cannula 03/08 0000 90 Nasal 6.0L Cannula 03/07 2240 98.1 84 20 130/80 90 Nasal Cannula 03/07 2204 91 Nasal 6.0L Cannula 03/07 1504 98.4 87 20 137/64 95 Nasal Cannula Intake & Output 03/08 1600 03/08 0800 03/08 0000 Intake Total 160 720 Output Total Balance 160 720 Intake, IV 40 600 Intake, Oral 120 120 Number 1 1 Bowel Movements Patient 93.213 kg Weight Physical Exam General Appearance: Alert, Cooperative, No Acute Distress, remains on 6L NC Neck: Supple, No JVD Lungs: diffuse rhonchi more pronounced bibasilarly Abdomen: Normal Bowel Sounds, Soft, No Tenderness, No Masses Extremities: No Clubbing, No Cyanosis, No Edema, Normal Pulses Current Medications: Current Medications Sig/Akila Start time Last Medication Dose Route Stop Time Status Admin Acetaminophen 1,000 MG Q12P PRN 03/01 0815 AC N/A 1 UNIT IV Albuterol Sulfate 3 ML BID 03/01 2100 AC 03/08 INH 0809 Amoxicillin/ 875 MG BID 03/04 2211 DC 03/07 Clavulanate Potassium PO 03/07 2300 2200 Doxazosin Mesylate 2 MG DAILY 02/28 09 AC 03/08 PO 0826 Finasteride 5 MG DAILY 02/27 09 AC 03/08 PO 0835 Furosemide 40 MG DAILY 03/02 09 DC 03/07 IV 0859 Guaifenesin 10 ML Q6P PRN 03/02 1715 AC PO Heparin Sodium 5,000 UNIT Q8 02/28 1411 AC 03/08 (Porcine) SC 0516 Metoprolol Succinate 50 MG DAILY 02/27 09 AC 03/08 PO 0835 Omeprazole 40 MG DAILY AC 02/27 0700 AC 03/04 PO 0653 Prednisone 40 MG DAILY 03/06 1453 AC 03/08 PO 0826 Sodium Chloride 1,000 ML Q13H 03/07 1215 DC 03/07 IV 03/08 0114 1336 Tiotropium [place] 1 PUF DAILY 02/27 0911 AC 03/08 INH 0827 Last 24 Hrs of Lab/Yang Results Last 24 Hrs of Labs/Mics: Laboratory Tests 03/08/18 0818: Anion Gap 8, Estimated GFR > 60, BUN/Creatinine Ratio 20.9 Assessment/Plan Assessment: 87 year old male with h/o previous CVA, vascular dementia, CAD, HTN, CKD, chronic anemia, colon cancer s/p resection, lung cancer untreated, recently admitted (January 2018) for upper GI bleed noted to have a GE junction tear vs healing ulcer, was brought in from [facility] with worsening cough, dyspnea, and hypoxia with increased supplemental oxygen requirement. Acute Hypoxemic resp failure likely 2/2 left lower lobe PNA: Leukocytosis, cough and left lower lobe pulmonary opacity on imaging possibly post obstructive pneumonia with reported LLL malignancy and persistent opacity CTA negative for pulmonary emboli Pulmonology consulted Completed ten day course of antibiotics Taper PO steroids on discharge Patient's did not wish biopsy or management of presumed lung cancer dx'd @ [place] Palliative care consultation at [facility] BPH: Continue finasteride GERD: PO PPI Regular diet DVT ppx-heparin subcutaneous DNR/DNI Problem List: 1. Pneumonia Pain Ratin Pain Location: n/a Pain Goal: Pain 4 or less Pain Plan: prn Tomorrow's Labs & Rationales: none discharge Tia Gardner MD 03/08/18 1145: Attending MD Review Statement Attending Statement Attending MD Statement: examined this patient, discuss w/resident/PA/AUTO ELECTRICIAN, agreed w/resident/PA/AUTO ELECTRICIAN, reviewed EMR data (avail), discussed with nursing, discussed with case mgmt, amended to note Attending Assessment/Plan: Patient seen and examined. No changes overnight reported by nursing staff. He remains alert and oriented. Not in acute respiratory distress. Maintaining saturation on [address] angiogram done yesterday showed no evidence of pulmonary embolism. Is medically stable [facility]. He will be evaluated by the palliative care service at the [facility] regarding long-term goals of care.
[2018-03-08 11:30] VITALS: BP 120/58
--- NOTE | 2018-03-08 13:49 | PN- Pulmonary ---
See Addendum Subjective HPI/Critical Care Issues: no complaints this morning Review of Systems Constitutional: Reports: see HPI CTA nil acute Objective Current Medications: Current Medications Sig/Akila Start time Last Medication Dose Route Stop Time Status Admin Acetaminophen 1,000 MG Q12P PRN 03/01 0815 AC N/A 1 UNIT IV Albuterol Sulfate 3 ML BID 03/01 2100 AC 03/08 INH 0809 Amoxicillin/ 875 MG BID 03/04 2211 DC 03/07 Clavulanate Potassium PO 03/07 2300 2200 Doxazosin Mesylate 2 MG DAILY 02/28 0900 AC 03/08 PO 0826 Finasteride 5 MG DAILY 02/27 0900 AC 03/08 PO 0835 Furosemide 40 MG DAILY 03/02 0900 DC 03/07 IV 0859 Guaifenesin 10 ML Q6P PRN 03/02 1715 AC PO Heparin Sodium 5,000 UNIT Q8 02/28 1411 AC 03/08 (Porcine) SC 0516 Metoprolol Succinate 50 MG DAILY 02/27 0900 AC 03/08 PO 0835 Omeprazole 40 MG DAILY AC 02/27 0700 AC 03/04 PO 0653 Prednisone 40 MG DAILY 03/06 1453 AC 03/08 PO 0826 Sodium Chloride 1,000 ML Q13H 03/07 1215 DC 03/07 IV 03/08 0114 1336 Tiotropium [place] 1 PUF DAILY 02/27 0911 AC 03/08 INH 0827 Vital Signs & I&O Last 24 Hrs of Vitals and I&O: Vital Signs Date Time Temp Pulse Resp B/P B/P Pulse O2 O2 Flow FiO2 Mean Ox Delivery Rate 03/08 1130 98.4 78 22 120/58 03/08 0835 120/58 03/08 0800 95 Nasal 6.0L Cannula 03/08 0541 98.4 78 22 135/77 95 Nasal 6.0L Cannula 03/08 0000 90 Nasal 6.0L Cannula 03/07 2240 98.1 84 20 130/80 90 Nasal Cannula 03/07 2204 91 Nasal 6.0L Cannula 03/07 1504 98.4 87 20 137/64 95 Nasal Cannula Intake & Output 03/08 1600 06 0800 03/08 0000 Intake Total 160 720 Output Total Balance 160 720 Intake, IV 40 600 Intake, Oral 120 120 Number 1 1 Bowel Movements Patient 206 lb Weight Impression/Plan Impression/Plan Impression/Plan: General Appearance Alert, Cooperative, No Acute Distress Skin Temp/Moisture Exam: Warm/Dry Sepsis Skin Exam (color): Normal for Ethnicity HEENT Atraumatic, PERRLA, EOMI, Mucous Membr. moist/pink Cardiovascular Regular Rate, Normal S1, Normal S2 Lungs diffuse rhonchi Abdomen Normal Bowel Sounds, Soft, No Tenderness Neurological Normal Speech, Strength at 5/5 X4 Ext, Sensation Intact, Cranial Nerves 3-12 NL Extremities No Clubbing, No Cyanosis, No Edema 87 yo M with h/o previous CVA, vascular dementia, CAD, HTN, CKD, chronic anemia, colon cancer s/p resection, lung cancer untreated (per records from before), recently admitted (January 2018) for upper GI bleed noted to have a GE junction tear vs healing ulcer, was brought in from [facility] for worsening cough, dyspnea, tachypnea and hypoxia requiring O2 supplementation. Issues Persistant LLL opacity present alleast since january (need to get records from [facility]) Now with persistant hypoxic despite abx and steroids - with elevated d dimer will need to rule out pe No sig aspiration noted No pe REc COnt abx azitro for total of 5 and augmentin for 7-10 days Wean steroids over 10 days KEep hob up Need old records (call [facility] and obtain if any bx was done) The left lower lobe opacity persists and this may be the lesion Stable
== END 2018-03-08 15:42 | DRG 177 ==
LOC: ERH 18:07 → 2NA 20:12 → ERHI 20:12 → ENRESERV 20:31 → CANRESERV 20:31 → ENRESERV 21:28 → ENTRNSPT 21:29 → EDTRNSPTSTS 21:43 → 2NA 21:53 → CMPTRNSPT 22:20 → 2NA 02-28 21:31 → ENPENDDIS 03-08 10:05 → 2NA 03-08 15:42
PROVIDERS: Internal Medicine; Internal Medicine Endocrinology, Diabetes & Metabolism; Physician Assistant; Student in an Organized Health Care Education/Training Program
DX: J15.6 Pneumonia due to other Gram-negative bacteria (principal); J96.01 Acute respiratory failure with hypoxia; C34.90 Malignant neoplasm of unspecified part of unspecified bronchus or lung; J44.0 Chronic obstructive pulmonary disease with (acute) lower respiratory infection; J44.1 Chronic obstructive pulmonary disease with (acute) exacerbation; F03.90 Unspecified dementia, unspecified severity, without behavioral disturbance, psychotic disturbance, mood disturbance, and anxiety; Z86.73 Personal history of transient ischemic attack (TIA), and cerebral infarction without residual deficits; I25.10 Atherosclerotic heart disease of native coronary artery without angina pectoris; I10 Essential (primary) hypertension; Z85.038 Personal history of other malignant neoplasm of large intestine; Z85.118 Personal history of other malignant neoplasm of bronchus and lung; Z90.49 Acquired absence of other specified parts of digestive tract; Z88.2 Allergy status to sulfonamides; Z88.8 Allergy status to other drugs, medicaments and biological substances; Z66 Do not resuscitate; R32 Unspecified urinary incontinence; D64.9 Anemia, unspecified
CPT/HCPCS: 2NAP; 36415; 36592; 71045; 71046; 74230; 81003; 82436; 87040; 87070; 87086; 87449; 87450; 93005; 93010; 93306; 96374; 96375; 97110-GO; 97161-GP; 97530-GO; J0131; J0456; J0696; J0713; J1644; J1940; J2920; J3370; J7040; J7608